=== PATIENT | male | born 1980 | race Hispanic/Latino ===

== ENCOUNTER 2016-09-27 07:47 | Emergency (ER) | payer MEDICAID, OTHER ==
[2016-09-27 07:48] VITALS: BMI 28.7
--- NOTE | 2016-09-27 08:18 | ED PDOC ---
Arrival/HPI - General Chief Complaint: Dental Pain Time Seen by Provider: 09/27/16 08:05 Historian: Patient - History of Present Illness Narrative History of Present Illness (Text): 09/27/16 08:10 A 36 year old male with no known past medical history presents to the emergency department complaining right lower tooth pain radiating to jaw and facial swelling. The patient notes that he has had facial swelling for the past 2 days. He states that he has had fever and sweats. Patient also complains of intermittent constipation and healing bug bites with no current itchiness on his arms. He denies headache, nausea, vomiting, diarrhea, chest pain, cough, abdominal pain, shortness of breath, dizziness, or any other complaint. Time/Duration: Other (past 2 days) Symptom Onset: Gradual Symptom Course: Unchanged Activities at Onset: Rest, Light Context: Home Past Medical History - Provider Review Nursing Documentation Reviewed: Yes - Infectious Disease Hx of Infectious Diseases: None - Past Medical History Past Medical History: No Previous - Cardiac Hx Cardiac Disorders: No Hx Hypertension: No - Pulmonary Hx Tuberculosis: No - Neurological HX Cerebrovascular Accident: No Hx Seizures: No - Hematological/Oncological Hx Cancer: No - Musculoskeletal/Rheumatological Hx Falls: No - Gastrointestinal Hx Gastroesophageal Reflux: Yes - Genitourinary/Gynecological Hx Sexually Transmitted Diseases: No - Psychiatric Hx Anxiety: Yes Hx Depression: Yes Hx Substance Use: No - Past Surgical History Past Surgical History: No Previous - Anesthesia Hx Anesthesia: No - Suicidal Assessment Feels Threatened In Home Enviroment: No Family/Social History - Physician Review Nursing Documentation Reviewed: Yes Family/Social History: No Known Family HX Smoking Status: Former Smoker Hx Alcohol Use: No Hx Substance Use: No Substance used: cocaine Hx Substance Use Treatment: No Allergies/Home Meds Allergies/Adverse Reactions: Allergies No Known Allergies Allergy (Verified 09/27/16 08:08) Home Medications: Home Meds Medication Instructions Recorded Confirmed DULoxetine [Cymbalta] 60 mg PO DAILY 04/14/15 09/27/16 Buprenorphine Hydrochloride 8 mg SL TID 09/27/16 09/27/16 [Subutex] Clonazepam [Klonopin] 2 mg PO TID 09/27/16 09/27/16 Sertraline [Zoloft] 50 mg PO DAILY 09/27/16 09/27/16 Review of Systems - Physician Review All systems were reviewed & negative as marked: Yes - Review of Systems Constitutional: Fevers, Night Sweats ENT: Other (right facial swelling and right lower tooth pain) Respiratory: absent: SOB, Cough Cardiovascular: absent: Chest Pain Gastrointestinal: absent: Abdominal Pain, Diarrhea, Nausea, Vomiting Neurological: absent: Headache, Dizziness Physical Exam Vital Signs Reviewed: Yes Vital Signs Temp Pulse Resp BP Pulse Ox 09/27/16 09:30 100.7 F H 96 H 16 128/67 95 09/27/16 08:03 100.8 F H 110 H 20 129/74 100 09/27/16 07:48 100.8 F H 110 H 20 129/74 100 Temperature: Febrile Blood Pressure: Normal Pulse: Tachycardic Respiratory Rate: Normal Appearance: Positive for: Well-Appearing, Non-Toxic, Comfortable Pain Distress: None Mental Status: Positive for: Alert and Oriented X 3 - Systems Exam Head: Present: Atraumatic, Normocephalic, Other (Right facial swelling with 4cm abscess) Pupils: Present: PERRL Extroacular Muscles: Present: EOMI Conjunctiva: Present: Normal Mouth: Present: Other (no puss or erythema in mouth). No: Normal Teeth ( tenderness to lower back right teeth) Neck: Present: Normal Range of Motion Respiratory/Chest: Present: Clear to Auscultation, Good Air Exchange. No: Respiratory Distress, Accessory Muscle Use Cardiovascular: Present: Regular Rate and Rhythm, Normal S1, S2. No: Murmurs Abdomen: No: Tenderness, Distention, Peritoneal Signs Back: Present: Normal Inspection Upper Extremity: Present: Normal Inspection. No: Cyanosis, Edema Lower Extremity: Present: Normal Inspection. No: Edema Neurological: Present: GCS=15, CN II-XII Intact, Speech Normal Skin: Present: Other (Healing bug bites on arm. Mild erythema, no warmth.) Psychiatric: Present: Alert, Oriented x 3, Normal Insight, Normal Concentration Medical Decision Making ED Course and Treatment: 09/27/16 08:18 Impression: A 36 year old male with right lower tooth pain and swelling with a 4cm abscess, constipation, and bug bites. Differential Diagnosis included but are not limited to: facial swelling with abscess, dental infection, constipation and bug bites. Plan: -- Maxillofacial CT -- Labs -- Blood Culture -- Toradol and IV Fluids -- Reassess and disposition Progress Notes: 09/27/16 09:14: Code sepsis called. Covered with Vancomycin IV and Zosyn IV. IVF continued. Pain controlled. CT MAXILLOFACIAL BONES WITH CONTRAST Report Date : 09/27/2016 09:53:52 Dictator : Maykel Britton MD IMPRESSION: Right pre maxillary abscess extending superiorly, lateral to the right maxillary sinus. Right facial cellulitis. Myositis involving the right medial pterygoid muscle. Large carry involving right 1st molar. No evidence of apical abscess. 09/27/16 10:30: Case disused with Dr. Allen, OMFS Resident who accepts patient for OMDS consult at [facility]. We do not have these services at [facility]. Case discussed with ED Attending, Dr. Handy who received the report as accepting physician. The patient was informed of the need for transfer. Patient signed transfer form and witness by EDGAR Harper. - Critical Care Critical Care Minutes: 30 minutes - Lab Interpretations Lab Results: 09/27/16 08:45 09/27/16 08:45 Lab Results 09/27/16 09:29: POC Glucose (mg/dL) 148 H 09/27/16 08:45: Sodium 135, Chloride 96, Potassium 4.1, Carbon Dioxide 27, Anion Gap 16, BUN 12, Creatinine 0.9, Est GFR ( Amer) > 60, Est GFR (Non- Af Amer) > 60, Random Glucose 156 H, Calcium 9.2, Total Bilirubin 2.3 H, AST 20 , ALT 33, Alkaline Phosphatase 63, Total Protein 7.6, Albumin 4.1, Globulin 3.5 , Albumin/Globulin Ratio 1.2, Lipase < 10 L 09/27/16 08:45: pO2 88 H, VBG pH 7.38, VBG pCO2 48.0, VBG HCO3 28.4 H, VBG Total CO2 29.9 H, VBG O2 Sat (Calc) 98.2 H, VBG Base Excess 2.5 H, VBG Potassium 4.6, Sodium 133.0, Chloride 96.0 L, Glucose 159 H, Lactate 2.5 H, FiO2 21.0, Venous Blood Potassium 4.6 09/27/16 08:45: WBC 23.3 H D, RBC 5.75, Hgb 17.7, Hct 49.3, MCV 85.7, MCH 30.8, MCHC 35.9, RDW 13.1, Plt Count 129, MPV 10.1, Gran % 86.2 H, Lymph % (Auto) 5.3 L, [place] % (Auto) 8.5 H, Eos % (Auto) 0.0 L, Baso % (Auto) 0.0, Gran # 20.03 H, Lymph # 1.2, [place] # 2.0 H, Eos # 0.0, Baso # 0.01, Neutrophils % (Manual) 82 H, Band Neutrophils % 2, Lymphocytes % (Manual) 9 L, Atypical Lymphs % 3 H, Monocytes % (Manual) 4, Platelet Evaluation Normal, Anisocytosis (manual) 1+ I have reviewed the lab results: Yes - RAD Interpretation Radiology Orders: 09/27/16 08:19 MAXILLOFACIAL W/CONTRAST [CT] Stat - Medication Orders Current Medication Orders: Sodium Chloride (Sodium Chloride 0.9%) 1,000 mls @ 100 mls/hr IV .Q10H JOANNA Last Admin: 09/27/16 08:50 Dose: 100 mls/hr Vancomycin HCl (Vancomycin 1gm) 1 gm in 250 mls @ 167 mls/hr IVPB STAT STA PRN Reason: Protocol Stop: 09/27/16 10:47 Last Admin: 09/27/16 09:34 Dose: 167 mls/hr Discontinued Medications Piperacillin Sod/Tazobactam Sod (Zosyn 4.5 Gm In Ns 100ml) 4.5 gm in 100 mls @ 200 mls/hr IVPB STAT STA PRN Reason: Protocol Stop: 09/27/16 10:32 Iohexol (Omnipaque 350 100 Ml) Confirm Administered Dose 350 mg .ROUTE .STK-MED ONE Stop: 09/27/16 09:14 Ketorolac Tromethamine (Toradol) 30 mg IVP STAT STA Stop: 09/27/16 08:19 Last Admin: 09/27/16 08:50 Dose: 30 mg - Scribe Statement The provider has reviewed the documentation as recorded by the Meng Alcantara Provider Scribe Attestation: All medical record entries made by the Scribe were at my direction and personally dictated by me. I have reviewed the chart and agree that the record accurately reflects my personal performance of the history, physical exam, medical decision making, and the department course for this patient. I have also personally directed, reviewed, and agree with the discharge instructions and disposition. Disposition/Present on Arrival - Present on Arrival Any Indicators Present on Arrival: No History of DVT/PE: No History of Uncontrolled Diabetes: No Urinary Catheter: No History of Decub. Ulcer: No History Surgical Site Infection Following: None - Disposition Have Diagnosis and Disposition been Completed?: Yes Diagnosis: Facial cellulitis, Facial abscess Disposition: Trans to Other Acute Care Hosp Disposition Time: 10:45 Patient Plan: Transfer To ([facility]) Condition: CRITICAL Discharge Instructions (ExitCare): Cellulitis (ED) Referrals: PCP,NO [Primary Care Provider] - Follow up with primary Forms: [employer] (Botswanan)
[2016-09-27] MEDS ORDERED: Sodium Chloride 0.9% 1,000 ML IV SCH (08:30)
[2016-09-27 09:08] LABS: BASO # 0.01 K/mm3 (0.0-2.0); GRAN # 20.03 (1.4-6.5); GRAN % 86.2 % (50.0-68.0); HEMATOCRIT 49.3 % (42.0-52.0); LYMPH # 1.2 (1.2-3.4); LYMPH % 5.3 % (22.0-35.0); MEAN CELL VOLUME 85.7 fl (80.0-105.0); MEAN CORPUSCULAR HEMOGLOBIN 30.8 pg (25.0-35.0); MEAN CORPUSCULAR HGB CONC 35.9 g/dl (31.0-37.0); MEAN PLATELET VOLUME 10.1 fl (7.0-11.0); MONO % 8.5 % (1.0-6.0); PLATELET COUNT 129 10^3/uL (120.0-450.0); RED CELL DISTRIBUTION WIDTH 13.1 % (11.5-14.5); WHITE BLOOD COUNT 23.3 10^3/ul (4.5-11.0)
[2016-09-27 09:11] LABS: VENOUS BLOOD GAS BASE EXCESS 2.5 mmol/L (0.0-2.0); VENOUS BLOOD PH 7.38 (7.32-7.43)
[2016-09-27 09:13] LABS: ALB/GLOB RATIO 1.2 (1.1-1.8); ALKALINE PHOSPHATASE 63 U/L (38-133); ALT/SGPT 33 U/L (7-56); AST/SGOT 20 U/L (15-59); BILIRUBIN,TOTAL 2.3 mg/dL (0.2-1.3); BLOOD UREA NITROGEN 12 mg/dL (7-21); CALCIUM 9.2 mg/dL (8.4-10.5); CARBON DIOXIDE 27 mmol/L (21-33); CHLORIDE 96 mmol/L (95-110); GFR AFRICAN-AMERICAN > 60; GLUCOSE,RANDOM 156 mg/dL (70-110); LIPASE < 10 U/L (23-300); POTASSIUM 4.1 mmol/L (3.6-5.0); SODIUM 135 mmol/L (132-148); TOTAL PROTEIN 7.6 g/dL (5.8-8.3)
[2016-09-27] MEDS ORDERED: Iohexol 350 MG/100 ML VIAL ONE (09:13)
[2016-09-27] MEDS ORDERED: Vancomycin 1gm in NS 250ml 1 GM/250 ML BAG IVPB STA (09:18)
[2016-09-27 09:44] LABS: ATYPICAL LYMPHOCYTE 3 % (0.0-0.0); BAND 2 % (0-2); NEUTROPHIL 82 % (50.0-70.0)
[2016-09-27 09:45] LABS: ANISOCYTOSIS 1+; PLATELET ESTIMATE NORMAL (NORMAL)
[2016-09-27 09:51] VITALS: RESP 16
--- NOTE | 2016-09-27 09:56 | CT ---
PROCEDURE: CT MAXILLOFACIAL BONES WITH CONTRAST HISTORY: right facial swelling w toothpain r/o abscess COMPARISON: None. TECHNIQUE: Contiguous axial CT images of the maxillofacial bones were obtained following administration of IV contrast. Coronal and sagittal reformats were generated. Intravenous contrast Dose: 100 mL Omnipaque 350 Radiation dose: Total exam DLP = 894.10 mGy-cm. This CT exam was performed using one or more of the following dose reduction techniques: Automated exposure control, adjustment of the mA and/or kV according to patient size, and/or use of iterative reconstruction technique. FINDINGS: NASAL BONES: Unremarkable. ORBITS: Unremarkable. PARANASAL SINUSES/ MASTOIDS: Clear. MAXILLA: No fracture. Extensive right maxillary soft tissue infiltration with a small abscess measuring roughly 1.7 x 2.2 cm. This is seen lateral to the right maxillary molars. There is a large caries involving the right mandibular 1st molar. This contains bubbles of gas. This gas is continuous with small quantities of gas about the right medial master muscle. There is enlargement of the right medial pterygoid muscle consistent with a myositis. There is stranding of the right maxillary subcutaneous soft tissues consistent with a cellulitis. There is thickening of the right platysmas muscle. MANDIBLE/ TEMPOROMANDIBULAR JOINTS: Unremarkable. SKULL BASE: Unremarkable. TEMPORAL BONES: Middle ears and mastoid grossly unremarkable. OTHER FINDINGS: None. IMPRESSION: Right pre maxillary abscess extending superiorly, lateral to the right maxillary sinus. Right facial cellulitis. Myositis involving the right medial pterygoid muscle. Large carry involving right 1st molar. No evidence of apical abscess.
[2016-09-27] MEDS ORDERED: Piperacill/Tazo 4.5gm in NS 4.5 GM/100 ML BAG IVPB STA (10:03)
[2016-09-27] MEDS ORDERED: Morphine 4 mg/ml ISec IVP STA (10:56)
[2016-09-27 11:55] VITALS: BP 114/68; PULSE 93; TEMP 101; O2SAT 99
[2016-09-27 12:20] LABS: VENOUS BLOOD GAS BASE EXCESS 2.9 mmol/L (0.0-2.0); VENOUS BLOOD PH 7.35 (7.32-7.43)
== END 2016-09-27 11:50 | disposition short-term general hospital (02) ==
LOC: ED 07:47
DX: L03.211 Cellulitis of face (principal); L02.01 Cutaneous abscess of face; Z87.891 Personal history of nicotine dependence
CPT/HCPCS: 70488; 80053; 82803; 82948; 83690; 85025; 87040; 96365; 96366; 96375; 99283; J1885; J2270; J2543; J7040; Q9967

== ENCOUNTER 2017-01-02 18:33 | Inpatient (IN) | payer MEDICAID ==
[2017-01-02] MEDS ORDERED: Naloxone 0.4 mg/ml Inj (Adult) ONE (18:51)
[2017-01-02 19:15] LABS: ALB/GLOB RATIO 1.4 (1.1-1.8); ALKALINE PHOSPHATASE 60 U/L (38-126); ALT/SGPT 37 U/L (7-56); AST/SGOT 29 U/L (17-59); BILIRUBIN,TOTAL 3.6 mg/dL (0.2-1.3); BLOOD UREA NITROGEN 20 mg/dL (7-21); CALCIUM 9.3 mg/dL (8.4-10.5); CARBON DIOXIDE 27 mmol/L (21-33); CHLORIDE 106 mmol/L (98-107); GFR AFRICAN-AMERICAN > 60; GLUCOSE,RANDOM 108 mg/dL (70-110); SODIUM 141 mmol/L (132-148); TOTAL PROTEIN 6.7 g/dL (5.8-8.3)
[2017-01-02 19:23] LABS: BASO # 0.01 K/mm3 (0.0-2.0); BASO % 0.1 % (0.0-3.0); EOS # 0.1 (0.0-0.7); EOS % 1.7 % (1.5-5.0); GRAN # 4.93 (1.4-6.5); HEMATOCRIT 42.9 % (42.0-52.0); LYMPH # 1.7 (1.2-3.4); LYMPH % 22.5 % (22.0-35.0); MEAN CELL VOLUME 89.6 fl (80.0-105.0); MEAN CORPUSCULAR HEMOGLOBIN 30.9 pg (25.0-35.0); MEAN CORPUSCULAR HGB CONC 34.5 g/dl (31.0-37.0); MEAN PLATELET VOLUME 9.5 fl (7.0-11.0); MONO # 0.8 (0.1-0.6); MONO % 10.7 % (1.0-6.0); RED CELL DISTRIBUTION WIDTH 14.5 % (11.5-14.5); WHITE BLOOD COUNT 7.6 10^3/ul (4.5-11.0)
[2017-01-02] MEDS ORDERED: ACETYLCYSTEINE IV ONE ×3 (19:40→19:44)
[2017-01-02] MEDS ORDERED: DEXTROSE 5% IV ONE ×3 (19:40→19:44)
[2017-01-02] MEDS ORDERED: WATER IV ONE ×3 (19:40→19:44)
--- NOTE | 2017-01-02 20:16 | ED PDOC ---
Arrival/HPI - General Chief Complaint: Substance Abuse Time Seen by Provider: 01/02/17 18:41 Historian: EMS - History of Present Illness Narrative History of Present Illness (Text): 01/02/17 20:26 A 36 year old male, who has no previous significant past medical history, presents to the emergency department via ALS and PD post status overdose at home. In the field the patient was given intranasal narcan and IV narcan with some response. As per PD the patient's significant other overdosed at the house resulting in . HPI & ROS limited due to patient's condition. Time/Duration: Prior to Arrival Symptom Onset: Sudden Symptom Course: Unchanged Activities at Onset: Other (drug use) Context: Home Past Medical History - Provider Review Nursing Documentation Reviewed: Yes - Infectious Disease Hx of Infectious Diseases: None - Past Medical History Past Medical History: No Previous - Cardiac Hx Cardiac Disorders: No Hx Hypertension: No - Pulmonary Hx Tuberculosis: No - Neurological HX Cerebrovascular Accident: No Hx Seizures: No - Hematological/Oncological Hx Cancer: No - Musculoskeletal/Rheumatological Hx Falls: No - Gastrointestinal Hx Gastroesophageal Reflux: Yes - Genitourinary/Gynecological Hx Sexually Transmitted Diseases: No - Psychiatric Hx Depression: No Hx Substance Use: No - Past Surgical History Past Surgical History: No Previous - Anesthesia Hx Anesthesia: No - Suicidal Assessment Feels Threatened In Home Enviroment: No Family/Social History - Physician Review Nursing Documentation Reviewed: Yes Family/Social History: No Known Family HX Smoking Status: Former Smoker Hx Alcohol Use: No Hx Substance Use: No Substance used: cocaine Hx Substance Use Treatment: No Allergies/Home Meds Allergies/Adverse Reactions: Allergies No Known Allergies Allergy (Unverified 01/02/17 18:54) Home Medications: Home Meds Medication Instructions Recorded Confirmed Unobtainable 01/02/17 01/02/17 Review of Systems - Physician Review All systems were reviewed & negative as marked: Yes - Review of Systems Systems not reviewed;Unavailable: Acuity of Condition Physical Exam Vital Signs Reviewed: Yes Vital Signs Temp Pulse Resp BP Pulse Ox 01/02/17 20:48 95.3 F L 75 18 109/55 L 93 L 01/02/17 19:10 72 24 91/53 L 96 01/02/17 18:33 96.5 F L 82 21 92/51 L 93 L Temperature: Hypothermic Blood Pressure: Hypotensive Pulse: Regular Respiratory Rate: Apneic Appearance: Positive for: Well-Appearing, Non-Toxic, Comfortable Pain Distress: None Mental Status: Positive for: Alert and Oriented X 3 Finger Stick Blood Glucose: 105 - Systems Exam Head: Present: Atraumatic, Normocephalic. No: Tenderness, Contusion, Swelling, Ecchymosis, Abrasion, Laceration Pupils: Present: Pinpoint Extroacular Muscles: Present: EOMI Conjunctiva: Present: Normal Ears: Present: Normal Mouth: Present: Moist Mucous Membranes Pharnyx: Present: Normal. No: ERYTHEMA, EXUDATE Nose (External): Present: Atraumatic Nose (Internal): Present: Normal Inspection Neck: Present: Normal Range of Motion Respiratory/Chest: Present: Clear to Auscultation, Good Air Exchange. No: Respiratory Distress, Accessory Muscle Use Cardiovascular: Present: Regular Rate and Rhythm, Normal S1, S2. No: Murmurs Abdomen: Present: Normal Bowel Sounds. No: Tenderness, Distention, Peritoneal Signs Back: Present: Normal Inspection Upper Extremity: Present: Normal Inspection. No: Cyanosis, Edema Lower Extremity: Present: Normal Inspection. No: Edema Neurological: Present: Other (non responsive to tactile stimuli ) Skin: Present: Warm, Dry, Normal Color. No: Rashes Psychiatric: Present: Intoxicated Medical Decision Making ED Course and Treatment: 01/02/17 20:15 Impression: A 36 year old male overdosed. Differential Diagnosis included but are not limited to: Overdose Plan: -- Head CT -- EKG -- Chest X-ray -- Dextrose 5% 200ml, Dextrose 5% 500ml, Dextrose 5% 1,000ml -- Fingerstick -- Ontiveros -- Emergency department admission -- Reassess and disposition Prior Visits: Notes and results from previous visits were reviewed. The patient was last seen in the emergency department on 09/27/16 for toothache, the patient was discharged home. Progress Notes: 01/02/17 20:20 EKG: Ordered, reviewed, and independently interpreted the EKG. Rate : 79 BPM Rhythm : NSR Interpretation : No ST-segment elevations or depressions, no T-wave inversions, normal intervals. QT wave is not prolonged. The patient's tylenol came back elevated, time of ingestion is unknown; will start NAC. The patient will admitted to the ICU. Poison control will be called E.D. stat. - Lab Interpretations Lab Results: 01/02/17 18:50 01/02/17 18:50 Lab Results 01/02/17 19:02: POC Glucose (mg/dL) 105 01/02/17 18:50: Alcohol, Quantitative < 10 01/02/17 18:50: Salicylates < 1 L, Acetaminophen 214.7 H* 01/02/17 18:50: Urine Opiates Screen Positive H, Urine Methadone Screen Negative , Ur Barbiturates Screen Positive H, Ur Phencyclidine Scrn Negative, Ur Amphetamines Screen Negative, U Benzodiazepines Scrn Positive, U Oth Cocaine Metabols Positive H, U Cannabinoids Screen Positive H 01/02/17 18:50: Sodium 141, Potassium 4.0, Chloride 106, Carbon Dioxide 27, Anion Gap 12, BUN 20, Creatinine 1.1, Est GFR ( Amer) > 60, Est GFR (Non- Af Amer) > 60, Random Glucose 108, Calcium 9.3, Total Bilirubin 3.6 H, AST 29, ALT 37, Alkaline Phosphatase 60, Total Protein 6.7, Albumin 3.8, Globulin 2.8, Albumin/Globulin Ratio 1.4 01/02/17 18:50: WBC 7.6 D, RBC 4.79, Hgb 14.8 D, Hct 42.9, MCV 89.6 D, MCH 30.9, MCHC 34.5, RDW 14.5, Plt Count 166, MPV 9.5, Gran % 65.0, Lymph % (Auto) 22.5, [place] % (Auto) 10.7 H, Eos % (Auto) 1.7, Baso % (Auto) 0.1, Gran # 4.93, Lymph # 1.7, [place] # 0.8 H, Eos # 0.1, Baso # 0.01 - RAD Interpretation Radiology Orders: 01/02/17 18:42 HEAD W/O CONTRAST [CT] Stat 01/02/17 18:48 CHEST PORTABLE [RAD] Stat - Medication Orders Current Medication Orders: Acetylcysteine 17,009.7 mg/ (Dextrose) 285.0485 mls @ 200 mls/hr IV .Q1H26M ONE Stop: 01/02/17 21:05 Last Admin: 01/02/17 20:20 Dose: 200 mls/hr eMAR Start Stop Document 01/02/17 20:20 CNR (Rec: 01/02/17 20:20 CNR [id number]) Intravenous Solution Start Date 01/02/17 Start Time 20:20 Acetylcysteine 5,669.9 mg/ (Dextrose) 528.3495 mls @ 125 mls/hr IV .Q4H14M ONE Stop: 01/02/17 23:56 Acetylcysteine 11,339.8 mg/ (Dextrose) 1,056.699 mls @ 62.5 mls/hr IV .[id number] ONE Stop: 01/03/17 12:38 Sodium Chloride (Sodium Chloride 0.9%) 1,000 mls @ 999 mls/hr IV .Q1H1M STA Stop: 01/02/17 21:30 Last Admin: 01/02/17 20:46 Dose: 999 mls/hr eMAR Start Stop Document 01/02/17 20:46 CNR (Rec: 01/02/17 20:46 CNR [id number]) Intravenous Solution Start Date 01/02/17 Start Time 20:00 End Date 01/02/17 End time 20:46 Total Infusion Time 46 Sodium Chloride (Sodium Chloride 0.9%) 1,000 mls @ 999 mls/hr IV .Q1H1M STA Stop: 01/02/17 21:31 Last Admin: 01/02/17 20:45 Dose: 999 mls/hr eMAR Start Stop Document 01/02/17 20:45 CNR (Rec: 01/02/17 20:45 CNR [id number]) Intravenous Solution Start Date 01/02/17 Start Time 19:00 End Date 01/02/17 End time 20:00 Total Infusion Time 60 Sodium Chloride (Sodium Chloride 0.9%) 1,000 mls @ 150 mls/hr IV .Q6H40M JOANNA Pantoprazole Sodium (Protonix Inj) 40 mg IVP DAILY JOANNA - Scribe Statement The provider has reviewed the documentation as recorded by the Fionaibevelia Devine Provider Scribe Attestation: All medical record entries made by the Scribe were at my direction and personally dictated by me. I have reviewed the chart and agree that the record accurately reflects my personal performance of the history, physical exam, medical decision making, and the department course for this patient. I have also personally directed, reviewed, and agree with the discharge instructions and disposition. Disposition/Present on Arrival - Present on Arrival Any Indicators Present on Arrival: No History of DVT/PE: No History of Uncontrolled Diabetes: No Urinary Catheter: No History of Decub. Ulcer: No History Surgical Site Infection Following: None - Disposition Have Diagnosis and Disposition been Completed?: Yes Diagnosis: Substance abuse, Acetaminophen overdose, Polysubstance abuse Disposition: HOSPITALIZED Disposition Time: 20:00 Patient Plan: Admission, ICU Condition: SERIOUS
--- NOTE | 2017-01-02 20:18 | CT ---
EXAM: CT Head Without Intravenous Contrast CLINICAL HISTORY: 36 years old, male; Signs and symptoms; Other: Overdose; Additional info: Overdose- R/O ich TECHNIQUE: Axial computed tomography images of the head/brain without intravenous contrast. All CT scans at this facility use one or more dose reduction techniques, viz.: automated exposure control; ma/kV adjustment per patient size (including targeted exams where dose is matched to indication; i.e. head); or iterative reconstruction technique. COMPARISON: No relevant prior studies available. FINDINGS: Brain: No intracranial hemorrhage. No mass. No definite edema. Ventricles: No hydrocephalus. Bones/joints: No acute fracture. Soft tissues: Unremarkable. Sinuses: Scattered minimal mucosal thickening. Mastoid air cells: No mastoid effusion. Orbits: Unremarkable as visualized. IMPRESSION: 1. No intracranial hemorrhage. 2. Incidental/non-acute findings are described above.
[2017-01-02] MEDS ORDERED: Sodium Chloride 0.9% 1,000 ML IV STA ×2 (20:30→20:31)
--- NOTE | 2017-01-02 20:57 | CP.PCM.HP ---
<Chayo Nelson - Last Filed: 01/02/17 20:48> History of Present Illness - History of Present Illness History of Present Illness: H&P for HospitalistGisela PGY2 This is a 36Y M with past medical history of IV drug abuse who was brought in by ambulance for altered mental status and possible drug overdose. Patient is awake, but lethargic. History was obtained through ED note and previous records. Patient's brother went to his house and found the patient to be confused and altered. EMS was called and he was brought into ED. He was found to be positive for multiple substances on UDS, including Tylenol. Patient was given Narcan and maintained his airway on nasal cannula. Head CT and CXR were negative.Poison control was notified and Acetadote was started. Past medical history: IV drug abuse (Heroin, cocaine), anxiety/depression, ADHD Past surgical history: None Home meds: unobtainable Allergies: NKDA Social history: + for cocaine, benzo, barbiturate, opiate, marijuana on UDS, + for tobacco use. Family history: non-contributory Present on Admission - Present on Admission Any Indicators Present on Admission: No Review of Systems - Review of Systems Systems not reviewed;Unavailable: Altered Mental Status, Intoxicated Past Patient History - Infectious Disease Hx of Infectious Diseases: None - Past Social History Smoking Status: Light Smoker < 10 Cigarettes Daily Alcohol: None Drugs: Cannabis, Cocaine, Opiates, Prescription medications Home Situation {Lives}: Alone - CARDIAC Hx Cardiac Disorders: No Hx Hypertension: No - PULMONARY Hx Tuberculosis: No - NEUROLOGICAL HX Cerebrovascular Accident: No Hx Seizures: No - HEMATOLOGICAL/ONCOLOGICAL Hx Cancer: No - MUSCULOSKELETAL/RHEUMATOLOGICAL Hx Falls: No - GASTROINTESTINAL Hx Gastroesophageal Reflux: Yes - GENITOURINARY/GYNECOLOGICAL Hx Sexually Transmitted Disorders: No - PSYCHIATRIC Hx Depression: No Hx Substance Use: No - ANESTHESIA Hx Anesthesia: No Meds Allergies/Adverse Reactions: Allergies Allergy/AdvReac Type Severity Reaction Status Date / Time No Known Allergies Allergy Unverified 01/02/17 18:54 Physical Exam - Constitutional Appears: Confused - Head Exam Head Exam: ATRAUMATIC, NORMAL INSPECTION, NORMOCEPHALIC - Eye Exam Eye Exam: Normal appearance. absent: Scleral icterus Pupil Exam: Miosis - ENT Exam ENT Exam: Mucous Membranes Dry - Respiratory Exam Respiratory Exam: Rhonchi, NORMAL BREATHING PATTERN. absent: Rales, Wheezes - Cardiovascular Exam Cardiovascular Exam: REGULAR RHYTHM, +S1, +S2. absent: Gallop, Rubs, Systolic Murmur - GI/Abdominal Exam GI & Abdominal Exam: Normal Bowel Sounds, Soft. absent: Mass, Rebound, Rigid, Tenderness - Extremities Exam Extremities exam: Positive for: normal inspection. Negative for: pedal edema - Neurological Exam Neurological exam: Altered Additional comments: Pinpoint pupils, no dolls eye reflex, not withdrawing to pain in all 4 extremities. No babinski noted - Skin Skin Exam: Dry, Warm Additional comments: Vertical Cut suarez on wrist/forearm bilaterally Results - Vital Signs Recent Vital Signs: Last Vital Signs Temp 95.3 F L 01/02/17 20:48 Pulse 75 01/02/17 20:48 Resp 18 01/02/17 20:48 BP 109/55 L 01/02/17 20:48 Pulse Ox 93 L 01/02/17 20:48 - Labs Result Diagrams: 01/02/17 18:50 01/02/17 18:50 Assessment & Plan - Assessment and Plan (Free Text) Assessment: This is a 36Y M with past medical history of IV drug abuse who was brought in by ambulance for altered mental status secondary to multi-substance abuse ( Cocaine, benzo, marijuana, opiate, barbiturate, tylenol). Plan: 1. AMS - Secondary to substance abuse - Head CT negative, CXR: no active disease - Poison control notified (Recommended to recheck LFT and Tylenol level once 16hr Acetadote completed) - EKG q8h - Neuro check - Aspiration precaution, Head of bed elevated 30 degrees - Seizure precaution - NS@150 - NPO 2. Elevated Bilirubin - T. Bili: 3.6 - Bilirubin elevated at previous admissions (T.bili:~2) - Will check Hep panel (was negative in 04/2015) 3. Substance abuse (IVDA) - Will check HIV - Consider psych consult for possible suicide attempt (cut suarez on wrists) once pt awake. GI ppx: Protonix DVT ppx: SCDs Case seen, discussed and reviewed with Dr. Edwards. Gisela Nelson PGY2 - Date & Time Date: 01/02/17 Time: 21:09 <Grace RIVAS,Mart - Last Filed: 01/03/17 07:45> Results - Vital Signs Recent Vital Signs: Last Vital Signs Temp 98.4 F 01/03/17 06:50 Pulse 87 01/03/17 06:50 Resp 27 H 01/03/17 06:50 BP 136/86 01/03/17 06:00 Pulse Ox 95 01/03/17 06:50 - Labs Result Diagrams: 01/03/17 05:30 01/03/17 05:30 Labs: Laboratory Results - last 24 hr 01/02/17 01/03/17 01/03/17 21:45 00:30 00:30 WBC RBC Hgb Hct MCV MCH MCHC RDW Plt Count MPV Gran % Lymph % (Auto) Weak[place] % (Auto) Eos % (Auto) Baso % (Auto) Gran # Lymph # Weakley # Eos # Baso # PT 11.6 INR 1.06 APTT 29.4 pO2 VBG pH VBG pCO2 VBG HCO3 VBG Total CO2 VBG O2 Sat (Calc) VBG Base Excess VBG Potassium Glucose Lactate FiO2 Sodium Potassium Chloride Carbon Dioxide Anion Gap BUN Creatinine Est GFR ( Amer) Est GFR (Non-Af Amer) POC Glucose (mg/dL) Random Glucose Calcium Total Bilirubin 1.3 Direct Bilirubin 1.3 H AST 32 ALT 45 Alkaline Phosphatase < 20 L D Total Protein 6.1 Albumin 3.3 Globulin 2.8 Albumin/Globulin Ratio 1.2 Venous Blood Potassium Acetaminophen 94.7 H* 01/03/17 01/03/17 01/03/17 05:30 05:30 05:30 WBC 7.3 RBC 4.89 Hgb 14.8 Hct 44.7 MCV 91.4 MCH 30.3 MCHC 33.1 RDW 14.7 H Plt Count 169 MPV 9.7 Gran % 79.4 H Lymph % (Auto) 12.9 L Weakley % (Auto) 7.4 H Eos % (Auto) 0.0 L Baso % (Auto) 0.3 Gran # 5.78 Lymph # 0.9 L Weakley # 0.5 Eos # 0.0 Baso # 0.02 PT 13.3 H INR 1.22 H APTT 30.7 pO2 VBG pH VBG pCO2 VBG HCO3 VBG Total CO2 VBG O2 Sat (Calc) VBG Base Excess VBG Potassium Glucose Lactate FiO2 Sodium 143 Potassium 3.7 Chloride 109 H Carbon Dioxide 26 Anion Gap 12 BUN 13 Creatinine 0.9 Est GFR ( Amer) > 60 Est GFR (Non-Af Amer) > 60 POC Glucose (mg/dL) Random Glucose 113 H Calcium 8.2 L Total Bilirubin 1.1 Direct Bilirubin AST 43 ALT 45 Alkaline Phosphatase 37 L D Total Protein 6.2 Albumin 3.4 Globulin 2.8 Albumin/Globulin Ratio 1.2 Venous Blood Potassium Acetaminophen 01/03/17 01/03/17 01/03/17 05:30 06:30 07:28 WBC RBC Hgb Hct MCV MCH MCHC RDW Plt Count MPV Gran % Lymph % (Auto) Weakley % (Auto) Eos % (Auto) Baso % (Auto) Gran # Lymph # Weakley # Eos # Baso # PT INR APTT pO2 98 H VBG pH 7.30 L VBG pCO2 50.0 VBG HCO3 24.6 VBG Total CO2 26.1 VBG O2 Sat (Calc) 98.7 H VBG Base Excess -2.4 L VBG Potassium 3.9 Glucose 116 H Lactate 0.6 L FiO2 21.0 Sodium 141.0 Potassium Chloride 107.0 Carbon Dioxide Anion Gap BUN Creatinine Est GFR ( Amer) Est GFR (Non-Af Amer) POC Glucose (mg/dL) 99 Random Glucose Calcium Total Bilirubin Direct Bilirubin AST ALT Alkaline Phosphatase Total Protein Albumin Globulin Albumin/Globulin Ratio Venous Blood Potassium 3.9 Acetaminophen 41.7 H Attending/Attestation - Attestation I have personally seen and examined this patient.: Yes I have fully participated in the care of the patient.: Yes I have reviewed all pertinent clinical information: Yes Notes (Text): -I agree with the above H&P completed by the resident physician with the following additions and/or changes: -The patient is a 36 year old man with a history of polysubstance abuse, depression and ADHD, who was BIBA with AMS. In the ED, he was withdrawing extremities to pain and able to protect his airway but otherwise unresponsive. Urine toxicology was positive for opiates, cocaine, barbiturates and THC. Also, initial serum Acetaminophen levels were elevated (214). History is very limited due to patient's AMS. Poison control was notified by the ED and per their rec's the patient was started on NAC protocol. Initial CT-head, CXR and EKG were all unremarkable. The patient was noted initially to be hypothermic at 96.5. However , his WBC, serum bicarb and LFT's were initially normal. Overnight, in the ICU, his lethargy and AMS appears to have worsened, in that, he no longer is withdrawals to pain sensation. As a result, Narcan drip was initiated overnight (with no improvement in neurological status thus far). Repeat LFT's, acetaminophen level and INR have been ordered for this AM (currently pending). Also, chirinos-cultures have been ordered. Of note, if patient's neurological status continues to worsen, then he may ultimately require intubation for airway protection. Neurology consult has been placed. Upon resolution of altered mentation, the patient will likely also need a psychiatry consult as it is unclear if the Acetaminophen overdose was intentional or not.
[2017-01-02] MEDS: Sodium Chloride 0.9% 1,000 ML IV SCH (21:30)
[2017-01-02 22:19] LABS: INR 1.06 (0.93-1.08); PARTIAL THROMBOPLASTIN TIME 29.4 Seconds (25.1-36.5)
[2017-01-02] MEDS ORDERED: Naloxone 0.4 mg/ml Inj (Adult) IVP ONE (22:23)
[2017-01-02 23:30] VITALS: BMI 29.5
[2017-01-03 01:00] LABS: ALB/GLOB RATIO 1.2 (1.1-1.8); ALKALINE PHOSPHATASE < 20 U/L (38-126); ALT/SGPT 45 U/L (7-56); AST/SGOT 32 U/L (17-59); BILIRUBIN,DIRECT 1.3 mg/dL (0.0-0.4); BILIRUBIN,TOTAL 1.3 mg/dL (0.2-1.3); TOTAL PROTEIN 6.1 g/dL (5.8-8.3)
[2017-01-03] MEDS ORDERED: Naloxone 2.4 MG in Sodium Chloride 0.9% 240 ML IV ONE (02:50)
[2017-01-03] MEDS: Sodium Chloride 0.9% 1,000 ML IV SCH ×2 (04:28→09:30)
[2017-01-03 06:15] LABS: BASO # 0.02 K/mm3 (0.0-2.0); BASO % 0.3 % (0.0-3.0); GRAN # 5.78 (1.4-6.5); GRAN % 79.4 % (50.0-68.0); HEMATOCRIT 44.7 % (42.0-52.0); LYMPH # 0.9 (1.2-3.4); LYMPH % 12.9 % (22.0-35.0); MEAN CELL VOLUME 91.4 fl (80.0-105.0); MEAN CORPUSCULAR HEMOGLOBIN 30.3 pg (25.0-35.0); MEAN CORPUSCULAR HGB CONC 33.1 g/dl (31.0-37.0); MEAN PLATELET VOLUME 9.7 fl (7.0-11.0); MONO # 0.5 (0.1-0.6); MONO % 7.4 % (1.0-6.0); RED CELL DISTRIBUTION WIDTH 14.7 % (11.5-14.5); WHITE BLOOD COUNT 7.3 10^3/ul (4.5-11.0)
[2017-01-03 06:47] LABS: VENOUS BLOOD GAS BASE EXCESS -2.4 mmol/L (0.0-2.0)
[2017-01-03 06:54] LABS: ALB/GLOB RATIO 1.2 (1.1-1.8); ALKALINE PHOSPHATASE 37 U/L (38-126); ALT/SGPT 45 U/L (7-56); AST/SGOT 43 U/L (17-59); BILIRUBIN,TOTAL 1.1 mg/dL (0.2-1.3); BLOOD UREA NITROGEN 13 mg/dL (7-21); CALCIUM 8.2 mg/dL (8.4-10.5); CARBON DIOXIDE 26 mmol/L (21-33); CHLORIDE 109 mmol/L (98-107); GFR AFRICAN-AMERICAN > 60; GLUCOSE,RANDOM 113 mg/dL (70-110); POTASSIUM 3.7 mmol/L (3.6-5.0); SODIUM 143 mmol/L (132-148); TOTAL PROTEIN 6.2 g/dL (5.8-8.3)
[2017-01-03 07:08] LABS: INR 1.22 (0.93-1.08); PARTIAL THROMBOPLASTIN TIME 30.7 Seconds (25.1-36.5)
[2017-01-03 07:39] LABS: ARTERIAL BLOOD GAS HCO3 20.6 mmol/L (21-28); ARTERIAL BLOOD GAS O2 CAPACITY 20.8 mL/dl (16-24); ARTERIAL BLOOD GAS O2 CONTENT 20.2 ML/dl (15-23); ARTERIAL BLOOD GAS PH 7.43 (7.35-7.45); ARTERIAL BLOOD HGB O2 SAT 92.6 % (95.0-98.0); CARBOXYHEMOGLOBIN 2.9 % (0.5-1.5); METHEMOGLOBIN 1.5 % (0.0-3.0)
[2017-01-03 08:10] LABS: MAGNESIUM 1.9 mg/dL (1.7-2.2); PHOSPHOROUS 3.6 mg/dL (2.5-4.5)
[2017-01-03 08:21] LABS: TROPONIN I < 0.01 ng/mL
--- NOTE | 2017-01-03 09:16 | CARD ---
APPROVED REPORT EKG Measurement Heart [id number] <Conclusion> Normal sinus rhythm Normal ECG No change
--- NOTE | 2017-01-03 09:26 | CARD ---
APPROVED REPORT EKG Measurement Heart [id number] [place] [id number] <Conclusion> Normal sinus rhythm Normal ECG No change
--- NOTE | 2017-01-03 09:36 | CARD ---
APPROVED REPORT EKG Measurement Heart [id number] [place] [id number] <Conclusion> Normal sinus rhythm Normal ECG No change
[2017-01-03 09:49] LABS: ARTERIAL BLOOD GAS O2 CAPACITY 19.2 mL/dl (16-24); ARTERIAL BLOOD GAS PH 7.39 (7.35-7.45); ARTERIAL BLOOD HGB O2 SAT 96.1 % (95.0-98.0); CARBOXYHEMOGLOBIN 2.1 % (0.5-1.5); HHB 0.8 % (0-5)
--- NOTE | 2017-01-03 10:10 | RAD ---
HISTORY: r/o infiltrate COMPARISON: 04/14/2015 FINDINGS: LUNGS: No active pulmonary disease. PLEURA: No significant pleural effusion identified, no pneumothorax apparent. CARDIOVASCULAR: Normal. OSSEOUS STRUCTURES: No significant abnormalities. VISUALIZED UPPER ABDOMEN: Normal. OTHER FINDINGS: None. IMPRESSION: No active disease.
--- NOTE | 2017-01-03 10:37 | RAD ---
HISTORY: Evaluate for PNA COMPARISON: 01/02/2017 FINDINGS: LUNGS: There is linear atelectasis at the right lung base. The lungs are otherwise clear PLEURA: No significant pleural effusion identified, no pneumothorax apparent. CARDIOVASCULAR: Normal. OSSEOUS STRUCTURES: No significant abnormalities. VISUALIZED UPPER ABDOMEN: Normal. OTHER FINDINGS: None. IMPRESSION: Linear atelectasis at the right lung base.
--- NOTE | 2017-01-03 10:38 | RAD ---
HISTORY: intubation COMPARISON: Earlier same day FINDINGS: LUNGS: The endotracheal tube is at the level of the upper border of the clavicles. The nasogastric tube is in satisfactory position in the gastric fundus. There is improvement in the linear atelectasis at the right lung base PLEURA: No significant pleural effusion identified, no pneumothorax apparent. CARDIOVASCULAR: Normal. OSSEOUS STRUCTURES: No significant abnormalities. VISUALIZED UPPER ABDOMEN: Normal. OTHER FINDINGS: None. IMPRESSION: The endotracheal tube is at the level of the upper border of the clavicles. The nasogastric tube is in satisfactory position in the gastric fundus. There is improvement in the linear atelectasis at the right lung base
--- NOTE | 2017-01-03 11:36 | CP.PCM.PN ---
<Jefe Andersen - Last Filed: 01/03/17 11:31> Subjective - Date & Time of Evaluation Date of Evaluation: 01/03/17 Time of Evaluation: 11:32 - Subjective Subjective: Pt seen and examined at bedside. Pt intubated this AM due to respiratory distress. No family at bedside. Objective - Vital Signs/Intake and Output Vital Signs (last 24 hours): Temp Pulse Resp BP Pulse Ox 98.4 F 83 19 135/80 99 01/03/17 09:50 01/03/17 10:00 01/03/17 08:49 01/03/17 09:00 01/03/17 09:50 Intake and Output: 01/03/17 01/03/17 06:59 18:59 Intake Total 2425 Output Total 1800 Balance 625 - Medications Medications: Current Medications Acetylcysteine 11,339.8 mg/ (Dextrose) 1,056.699 mls @ 62.5 mls/hr IV .[id number] ONE Stop: 01/03/17 12:38 Last Admin: 01/03/17 02:13 Dose: 62.5 mls/hr Sodium Chloride (Sodium Chloride 0.9%) 1,000 mls @ 75 mls/hr IV .[id number] JOANNA Last Admin: 01/03/17 09:30 Dose: 75 mls/hr Pantoprazole Sodium (Protonix Inj) 40 mg IVP DAILY [facility] Last Admin: 01/03/17 09:31 Dose: 40 mg - Labs Labs: 01/03/17 05:30 01/03/17 05:30 PT 13.3 SECONDS (9.4-12.5) H 01/03/17 05:30 INR 1.22 (0.93-1.08) H 01/03/17 05:30 APTT 30.7 Seconds (25.1-36.5) 01/03/17 05:30 - Constitutional Appears: Toxic, In Acute Distress - Head Exam Head Exam: ATRAUMATIC, NORMAL INSPECTION, NORMOCEPHALIC - Eye Exam Pupil Exam: Miosis - Respiratory Exam Respiratory Exam: Decreased Breath Sounds, NORMAL BREATHING PATTERN. absent: Rales, Rhonchi, Wheezes - Cardiovascular Exam Cardiovascular Exam: RRR, +S1, +S2 - GI/Abdominal Exam GI & Abdominal Exam: Soft, Normal Bowel Sounds. absent: Tenderness - Extremities Exam Extremities Exam: absent: Calf Tenderness, Pedal Edema - Neurological Exam Neurological Exam: Alert, Awake, Oriented x3 - Skin Skin Exam: Intact, Normal Color, Warm Assessment and Plan - Assessment and Plan (Free Text) Plan: 36 y/o M with past medical history of IV drug abuse who presents with AMS secondary to multisubstance overdose in the setting of respiratory failure. UDS positive for cocaine, benzo, marijuana, opiate, barbiturate, tylenol. No EKG changes at this time with tylenol level decreasing. Pt intubated to protect airway. Will monitor for possible aspiration pneumonia. Procal ordered. 1. AMS - Likely secondary to substance abuse - Head CT negative - Continue NAC for tylenol overdose as per poison control - WIll continue to trend LFTs - EKG q8h, no EKG changes at this time - Neuro check q4h - Aspiration precaution, Head of bed elevated 30 degrees - Seizure precaution - NS@150 - NPO 2. Elevated Bilirubin - Resolved - T. Bili: 3.6 initially, decreased to 1.1 - Hep panel pending 3. Substance abuse (IVDA) - HIV pending - Will consult psych once patient is alert and order 1:1 4. PPX - Protonix/SCDs Ganesh, PGY-2 <Rolanda Marsh B - Last Filed: 01/03/17 15:38> Objective - Vital Signs/Intake and Output Vital Signs (last 24 hours): Temp Pulse Resp BP Pulse Ox 97.2 F L 62 19 123/68 100 01/03/17 15:01 01/03/17 14:50 01/03/17 08:49 01/03/17 14:00 01/03/17 14:50 Intake and Output: 01/03/17 01/03/17 06:59 18:59 Intake Total 2425 Output Total 1800 Balance 625 - Medications Medications: Current Medications Sodium Chloride (Sodium Chloride 0.9%) 1,000 mls @ 75 mls/hr IV .[id number] [facility] Last Admin: 01/03/17 09:30 Dose: 75 mls/hr Lorazepam (Ativan) 2 mg IVP Q4H PRN; Protocol PRN Reason: Anxiety Pantoprazole Sodium (Protonix Inj) 40 mg IVP DAILY [facility] Last Admin: 01/03/17 09:31 Dose: 40 mg - Labs Labs: 01/03/17 05:30 01/03/17 05:30 PT 13.3 SECONDS (9.4-12.5) H 01/03/17 05:30 INR 1.22 (0.93-1.08) H 01/03/17 05:30 APTT 30.7 Seconds (25.1-36.5) 01/03/17 05:30 Attending/Attestation - Attestation I have personally seen and examined this patient.: Yes I have fully participated in the care of the patient.: Yes I have reviewed all pertinent clinical information, including history, physical exam and plan: Yes Notes (Text): I have seen and examined the patient at bedside. Agree with the above note with the following additions/ exceptions: Briefly this is 36 year old male with history of IVDA, Polysubstance abuse (opioids, cocaine, barbiturates, marijuana ) who was brought for evaluation of AMS. He got intubated this morning due to respiratory distress. Tylenol level was really high and is trending down now. He was given narcan and acetylcysteine. Poison control on the case. No family member is at the bedside. Continue ICU management. Will closely monitor his LFTs. HIV pending. As per team, suicide note was found on the scene. There are superficial cut suarez on both wrists. Will consult psych once patient is more awake. Upon discharge patient will follow up with PMD of choice. Dr Rolanda Marsh
[2017-01-03 13:40] LABS: TROPONIN I < 0.01 ng/mL
--- NOTE | 2017-01-03 13:44 | PN ---
DATE: 01/03/2017 TICKETING AGENT NOTE SUBJECTIVE: The patient is unresponsive at this time with no obvious distress. Vital signs are stable. The patient, when first came up, had pinpoint pupils, slow to respond as well as no gag reflex. Recently, the patient has started responding by coughing. The patient is on facemask O2 with good O2 saturation. He continues to be on the Narcan drip and he has been getting the N-acetylcysteine for possible Tylenol overdose. PHYSICAL EXAMINATION: VITAL SIGNS: Note that his temperature is 98.4, his pulse is 87, respirations are 24, BP is 136/86, and O2 saturation is 97% on facemask O2. HEENT: Head is atraumatic and normocephalic. Eyes, sluggishly reactive to light. Ears, nose, and throat seemed to be within normal limits. NECK: Supple. No JVD. No thyroid enlargement. No lymph nodes. HEART: Has regular rate and rhythm. Normal S1 and S2. LUNGS: Reveal good breath sounds bilaterally. ABDOMEN: Soft. Decreased bowel sounds. GENITALIA AND RECTAL: Deferred. MUSCULOSKELETAL: No joint deformities. EXTREMITIES: Reveal no edema. NEUROLOGIC: The patient is unresponsive at this time secondary to drug overdose. LABORATORY DATA: Reveal white count of 7.3, hemoglobin of 14.8, and hematocrit 44.7, with platelets of 169,000. Arterial blood gas revealed the pH of 7.43, pCO2 of 31, and pO2 of 67, this is on 2 liters of nasal cannula. As far as, sodium is 143, potassium is 3.7, chloride is 109, CO2 of 26 with BUN of 13, and creatinine of 0.9. The patient's glucose is 113. The patient's LFTs are normal and his total creatine kinase is 1258. Chest x-ray reveals there is areas of atelectasis in both lower lobe regions, this is an unofficial reading. IMPRESSION: As far as my impression, this patient has a history of intravenous drug abuse and gastroesophageal reflux disease and presents with drug overdose with multiple substance abuse, noted on chemistry was cocaine, benzo, marijuana, opiates, barbiturates, as well as Tylenol. The patient presented with all treatment of status and unresponsive most likely secondary to the drug overdose. He does have history of gastroesophageal reflux disease as stated before and most likely secondary to drugs. PLAN: As far as our plan, we will continue to watch for as a seizure precaution, the patient is on antidote for possible Tylenol overdose. He is getting Narcan drip at this time as well. Neurology has been consulted and the patient is getting IV fluids normal saline at 75 mL an hour. He is being hemodynamically monitored closely. Once the patient regain consciousness, Psychiatry consult will be called. As far as other medications, we will continue with Protonix and we will follow his respiratory status closely. We will continue to treat aggressively along with the other consultants and the primary care doctor. Jason Goyal MD
[2017-01-03] MEDS: Propofol 10 mg/ml 1,000 MG/100 ML VIAL IV PRN ×2 (15:46→20:39)
--- NOTE | 2017-01-03 18:56 | CON ---
DATE: HISTORY OF PRESENT ILLNESS: This is a 36-year-old male with past medical history of IV drug abuse, anxiety, depression and ADHD. The patient came to the hospital with altered mental status with drug overdose. The patient was lethargic and the patient's brother went to his house and found the patient to be confused and altered and brought him to the emergency room. CAT scan of the head was done which was reported negative for bleed. PAST MEDICAL HISTORY: IV drug abuse and anxiety. ALLERGIES: NO KNOWN DRUG ALLERGIES. SOCIAL HISTORY: Positive for cocaine, benzo, barbiturate, opiate, marijuana and tobacco use. REVIEW OF SYSTEMS: 10-point review of system, the patient is unresponsive and on sedation and on ventilatory support. PHYSICAL EXAMINATION: GENERAL: Unresponsive on a ventilatory support. NEUROLOGIC: No spontaneous movement of the extremities noted. Deep tendon reflex is 1+, plantaris equivocal. Sensory appears intact. Cerebellar and gait deferred. IMPRESSION AND PLAN: Encephalopathy with toxic metabolic and multiple drug abuse, possible overdose. CAT scan of the head was negative. Workup in progress. Continue present management. We will follow up. Dhruv Perez MD
[2017-01-03 18:58] LABS: ALB/GLOB RATIO 1.2 (1.1-1.8); BILIRUBIN,DIRECT 0.6 mg/dL (0.0-0.4); BILIRUBIN,TOTAL 1.2 mg/dL (0.2-1.3); TOTAL PROTEIN 6.3 g/dL (5.8-8.3)
[2017-01-03 19:00] LABS: INR 1.36 (0.93-1.08); PARTIAL THROMBOPLASTIN TIME 35.3 Seconds (25.1-36.5)
[2017-01-04] MEDS: Sodium Chloride 0.9% 1,000 ML IV SCH ×2 (00:30→09:56)
[2017-01-04] MEDS: Propofol 10 mg/ml 1,000 MG/100 ML VIAL IV PRN ×6 (03:00→22:42)
[2017-01-04 07:07] LABS: BASO # 0.02 K/mm3 (0.0-2.0); BASO % 0.2 % (0.0-3.0); EOS # 0.1 (0.0-0.7); EOS % 0.5 % (1.5-5.0); GRAN # 8.18 (1.4-6.5); GRAN % 84.5 % (50.0-68.0); HEMATOCRIT 42.2 % (42.0-52.0); LYMPH # 0.7 (1.2-3.4); LYMPH % 6.8 % (22.0-35.0); MEAN CELL VOLUME 90.9 fl (80.0-105.0); MEAN CORPUSCULAR HEMOGLOBIN 30.2 pg (25.0-35.0); MEAN CORPUSCULAR HGB CONC 33.2 g/dl (31.0-37.0); MONO # 0.8 (0.1-0.6); RED CELL DISTRIBUTION WIDTH 14.9 % (11.5-14.5); WHITE BLOOD COUNT 9.7 10^3/ul (4.5-11.0)
[2017-01-04 07:13] LABS: INR 1.34 (0.93-1.08); PARTIAL THROMBOPLASTIN TIME 31.1 Seconds (25.1-36.5)
[2017-01-04 07:25] LABS: ALB/GLOB RATIO 1.2 (1.1-1.8); ALKALINE PHOSPHATASE 39 U/L (38-126); ALT/SGPT 39 U/L (7-56); AST/SGOT 41 U/L (17-59); BILIRUBIN,TOTAL 0.8 mg/dL (0.2-1.3); BLOOD UREA NITROGEN 8 mg/dL (7-21); CALCIUM 8.4 mg/dL (8.4-10.5); CARBON DIOXIDE 28 mmol/L (21-33); CHLORIDE 110 mmol/L (98-107); GFR AFRICAN-AMERICAN > 60; GLUCOSE,RANDOM 77 mg/dL (70-110); MAGNESIUM 1.9 mg/dL (1.7-2.2); PHOSPHOROUS 1.5 mg/dL (2.5-4.5); POTASSIUM 3.5 mmol/L (3.6-5.0); SODIUM 144 mmol/L (132-148); TOTAL PROTEIN 5.6 g/dL (5.8-8.3)
[2017-01-04] MEDS ORDERED: Potassium Phosphate 15 MMOLE in Sodium Chloride 0.9% 250 ML IVPB SCH (08:00)
--- NOTE | 2017-01-04 08:58 | RAD ---
HISTORY: interval changes COMPARISON: 01/03/2017 FINDINGS: LUNGS: No active pulmonary disease. PLEURA: No significant pleural effusion identified, no pneumothorax apparent. CARDIOVASCULAR: Normal. OSSEOUS STRUCTURES: No significant abnormalities. VISUALIZED UPPER ABDOMEN: Normal. OTHER FINDINGS: Endotracheal and nasogastric tube in satisfactory position IMPRESSION: No active disease.
--- NOTE | 2017-01-04 11:35 | CP.CCUPN ---
<LaurenceNikko - Last Filed: 01/04/17 11:29> CCU Subjective - Physician Review Events Since Last Encounter (Free Text): 01/04/17 11:[address] Ayala Pt seen and examined at bedside. Patient localizes to painful stimuli. Intubated and sedated. Does not open his eyes but does sit up and extend/flex neck. CCU Objective - Vital Signs / Intake & Output Vital Signs (Last 4 hours): Vital Signs Temp Pulse Resp BP Pulse Ox 01/04/17 10:30 99.0 F 97 H 100 01/04/17 10:20 99.0 F 82 100 01/04/17 10:10 99.1 F 82 100 01/04/17 10:00 99.1 F 79 149/87 100 01/04/17 09:50 99.3 F 83 99 01/04/17 09:40 99.5 F 86 99 01/04/17 09:30 99.5 F 89 99 01/04/17 09:20 99.7 F H 89 99 01/04/17 09:10 99.7 F H 90 100 01/04/17 09:00 150/85 01/04/17 08:59 99.5 F 87 100 01/04/17 08:50 99.5 F 90 100 01/04/17 08:40 99.5 F 95 H 100 01/04/17 08:30 99.5 F 101 H 100 01/04/17 08:20 99.5 F 104 H 100 01/04/17 08:10 99.5 F 96 H 100 01/04/17 08:00 99.5 F 91 H 162/100 H 100 01/04/17 07:50 99.5 F 105 H 17 100 01/04/17 07:40 99.5 F 88 100 01/04/17 07:30 99.5 F 84 100 Intake and Output (Last 8hrs): Intake & Output 01/03/17 01/04/17 01/04/17 22:59 06:59 14:59 Intake Total 1943 1295 100 Output Total 700 1200 Balance 1244 95 100 Weight 224 lb Intake: IV 1943 1295 100 Left Forearm 1100 195 Left Hand 744 900 Right Forearm 0 Oral 0 Output: Urine 700 1200 Urethral ([place]) 700 1200 Stool 0 Other: # Bowel Movements 0 - Physical Exam Head: Positive for: Atraumatic, Normocephalic. Negative for: Tenderness, Contusion, Swelling, Ecchymosis, Abrasion, Laceration Pupils: Positive for: Pinpoint Extroacular Muscles: Positive for: EOMI Conjunctiva: Positive for: Normal Ears: Positive for: Normal Mouth: Positive for: Moist Mucous Membranes Pharnyx: Positive for: Normal. Negative for: ERYTHEMA, EXUDATE Nose (External): Positive for: Atraumatic Nose (Internal): Positive for: Normal Inspection Neck: Positive for: Normal Range of Motion Respiratory/Chest: Positive for: Clear to Auscultation, Good Air Exchange. Negative for: Respiratory Distress, Accessory Muscle Use Cardiovascular: Positive for: Regular Rate and Rhythm, Normal S1, S2. Negative for: Murmurs Abdomen: Positive for: Normal Bowel Sounds. Negative for: Tenderness, Distention, Peritoneal Signs Back: Positive for: Normal Inspection Upper Extremity: Positive for: Normal Inspection. Negative for: Cyanosis, Edema Lower Extremity: Positive for: Normal Inspection. Negative for: Edema Neurological: Positive for: Other (localizes to tactile stimuli) Skin: Positive for: Warm, Dry, Normal Color. Negative for: Rashes - Medications Active Medications: Active Medications Generic Name Dose Route Start Last Admin Trade Name Freq PRN Reason Stop Dose Admin Propofol 1,000 mg in 100 mls @ 3.048 mls/hr 01/03/17 15:29 01/04/17 10:08 Diprivan IV 33.46 mcg/kg/min .Q24H PRN 20.398 mls/hr TITRATE PER MD ORDER Administration Protocol 5 MCG/KG/MIN Potassium Phosphate 15 mmole/ 255 mls @ 42.5 mls/hr 01/04/17 08:00 01/04/17 08:20 Sodium Chloride IVPB 01/04/17 11:59 42.5 mls/hr Q2 JOANNA Administration Sodium Chloride 1,000 mls @ 150 mls/hr 01/04/17 09:23 01/04/17 09:56 Sodium Chloride 0.9% IV 150 mls/hr .Q6H40M JOANNA Administration Lorazepam 2 mg 01/03/17 15:12 01/03/17 15:28 Ativan IVP 2 mg Q4H PRN Administration Anxiety Protocol Pantoprazole Sodium 40 mg 01/03/17 10:00 01/04/17 09:58 Protonix Inj IVP 40 mg DAILY JOANNA Administration - Patient Studies Lab Studies: Microbiology Studies 01/03/17 07:34 Urine Culture - Final Urine,[place] No Growth (<1,000 CFU/ML) 01/03/17 06:30 Blood Culture - Preliminary Blood NO GROWTH AFTER 24 HOURS 01/03/17 06:00 Blood Culture - Preliminary Blood NO GROWTH AFTER 24 HOURS Lab Studies 01/04/17 01/04/17 01/04/17 Range/Units 06:00 06:00 06:00 WBC (4.5-11.0) 10^3/ul RBC (3.5-6.1) 10^6/uL Hgb (14.0-18.0) g/dL Hct (42.0-52.0) % MCV (80.0-105.0) fl MCH (25.0-35.0) pg MCHC (31.0-37.0) g/dl RDW (11.5-14.5) % Plt Count (120.0-450.0) 10^3/uL MPV (7.0-11.0) fl Gran % (50.0-68.0) % Lymph % (Auto) (22.0-35.0) % [place] % (Auto) (1.0-6.0) % Eos % (Auto) (1.5-5.0) % Baso % (Auto) (0.0-3.0) % Gran # (1.4-6.5) Lymph # (1.2-3.4) [place] # (0.1-0.6) Eos # (0.0-0.7) Baso # (0.0-2.0) K/mm3 PT 14.8 H (9.4-12.5) SECONDS INR 1.34 H (0.93-1.08) APTT 31.1 (25.1-36.5) Seconds Sodium 144 (132-148) mmol/L Potassium 3.5 L (3.6-5.0) mmol/L Chloride 110 H (98-107) mmol/L Carbon Dioxide 28 (21-33) mmol/L Anion Gap 9 L (10-20) BUN 8 (7-21) mg/dL Creatinine 1.0 (0.8-1.5) mg/dl Est GFR ( Amer) > 60 Est GFR (Non-Af Amer) > 60 Random Glucose 77 (70-110) mg/dL Calcium 8.4 (8.4-10.5) mg/dL Phosphorus 1.5 L (2.5-4.5) mg/dL Magnesium 1.9 (1.7-2.2) mg/dL Total Bilirubin 0.8 (0.2-1.3) mg/dL Direct Bilirubin (0.0-0.4) mg/dL AST 41 (17-59) U/L ALT 39 (7-56) U/L Alkaline Phosphatase 39 (38-126) U/L Total Creatine Kinase (35-230) U/L CK-MB (CK-2) (0.0-3.6) ng/mL CK-MB (CK-2) % (2.5-3.0) % Troponin I ng/mL Total Protein 5.6 L (5.8-8.3) g/dL Albumin 3.0 (3.0-4.8) g/dL Globulin 2.6 gm/dL Albumin/Globulin Ratio 1.2 (1.1-1.8) Procalcitonin (0.19-0.49) NG/ML Acetaminophen < 10.0 L (10.0-20.0) ug/ml Hepatitis A IgM Ab (NEGATIVE) Hep Bs Antigen (NEGATIVE) Hep B Core IgM Ab (NEGATIVE) Hepatitis C Antibody (NEGATIVE) HIV 1&2 Antibody Screen (NEGATIVE) 01/04/17 01/03/17 01/03/17 Range/Units 06:00 18:30 18:30 WBC 9.7 D (4.5-11.0) 10^3/ul RBC 4.64 (3.5-6.1) 10^6/uL Hgb 14.0 (14.0-18.0) g/dL Hct 42.2 (42.0-52.0) % MCV 90.9 (80.0-105.0) fl MCH 30.2 (25.0-35.0) pg MCHC 33.2 (31.0-37.0) g/dl RDW 14.9 H (11.5-14.5) % Plt Count 149 (120.0-450.0) 10^3/uL MPV 10.0 (7.0-11.0) fl Gran % 84.5 H (50.0-68.0) % Lymph % (Auto) 6.8 L (22.0-35.0) % [place] % (Auto) 8.0 H (1.0-6.0) % Eos % (Auto) 0.5 L (1.5-5.0) % Baso % (Auto) 0.2 (0.0-3.0) % Gran # 8.18 H (1.4-6.5) Lymph # 0.7 L (1.2-3.4) [place] # 0.8 H (0.1-0.6) Eos # 0.1 (0.0-0.7) Baso # 0.02 (0.0-2.0) K/mm3 PT (9.4-12.5) SECONDS INR (0.93-1.08) APTT (25.1-36.5) Seconds Sodium (132-148) mmol/L Potassium (3.6-5.0) mmol/L Chloride (98-107) mmol/L Carbon Dioxide (21-33) mmol/L Anion Gap (10-20) BUN (7-21) mg/dL Creatinine (0.8-1.5) mg/dl Est GFR ( Amer) Est GFR (Non-Af Amer) Random Glucose (70-110) mg/dL Calcium (8.4-10.5) mg/dL Phosphorus (2.5-4.5) mg/dL Magnesium (1.7-2.2) mg/dL Total Bilirubin 1.2 (0.2-1.3) mg/dL Direct Bilirubin 0.6 H (0.0-0.4) mg/dL AST 46 (17-59) U/L ALT 49 (7-56) U/L Alkaline Phosphatase 40 (38-126) U/L Total Creatine Kinase (35-230) U/L CK-MB (CK-2) (0.0-3.6) ng/mL CK-MB (CK-2) % (2.5-3.0) % Troponin I ng/mL Total Protein 6.3 (5.8-8.3) g/dL Albumin 3.4 (3.0-4.8) g/dL Globulin 2.9 gm/dL Albumin/Globulin Ratio 1.2 (1.1-1.8) Procalcitonin (0.19-0.49) NG/ML Acetaminophen < 10.0 L (10.0-20.0) ug/ml Hepatitis A IgM Ab (NEGATIVE) Hep Bs Antigen (NEGATIVE) Hep B Core IgM Ab (NEGATIVE) Hepatitis C Antibody (NEGATIVE) HIV 1&2 Antibody Screen (NEGATIVE) 01/03/17 01/03/17 01/03/17 Range/Units 18:30 13:10 11:30 WBC (4.5-11.0) 10^3/ul RBC (3.5-6.1) 10^6/uL Hgb (14.0-18.0) g/dL Hct (42.0-52.0) % MCV (80.0-105.0) fl MCH (25.0-35.0) pg MCHC (31.0-37.0) g/dl RDW (11.5-14.5) % Plt Count (120.0-450.0) 10^3/uL MPV (7.0-11.0) fl Gran % (50.0-68.0) % Lymph % (Auto) (22.0-35.0) % [place] % (Auto) (1.0-6.0) % Eos % (Auto) (1.5-5.0) % Baso % (Auto) (0.0-3.0) % Gran # (1.4-6.5) Lymph # (1.2-3.4) [place] # (0.1-0.6) Eos # (0.0-0.7) Baso # (0.0-2.0) K/mm3 PT 14.9 H (9.4-12.5) SECONDS INR 1.36 H (0.93-1.08) APTT 35.3 (25.1-36.5) Seconds Sodium (132-148) mmol/L Potassium (3.6-5.0) mmol/L Chloride (98-107) mmol/L Carbon Dioxide (21-33) mmol/L Anion Gap (10-20) BUN (7-21) mg/dL Creatinine (0.8-1.5) mg/dl Est GFR ( Amer) Est GFR (Non-Af Amer) Random Glucose (70-110) mg/dL Calcium (8.4-10.5) mg/dL Phosphorus (2.5-4.5) mg/dL Magnesium (1.7-2.2) mg/dL Total Bilirubin (0.2-1.3) mg/dL Direct Bilirubin (0.0-0.4) mg/dL AST (17-59) U/L ALT (7-56) U/L Alkaline Phosphatase (38-126) U/L Total Creatine Kinase 1405 H (35-230) U/L CK-MB (CK-2) 12.8 H (0.0-3.6) ng/mL CK-MB (CK-2) % 0.9 L (2.5-3.0) % Troponin I < 0.01 ng/mL Total Protein (5.8-8.3) g/dL Albumin (3.0-4.8) g/dL Globulin gm/dL Albumin/Globulin Ratio (1.1-1.8) Procalcitonin < 0.05 L (0.19-0.49) NG/ML Acetaminophen (10.0-20.0) ug/ml Hepatitis A IgM Ab (NEGATIVE) Hep Bs Antigen (NEGATIVE) Hep B Core IgM Ab (NEGATIVE) Hepatitis C Antibody (NEGATIVE) HIV 1&2 Antibody Screen (NEGATIVE) 01/02/17 01/02/17 Range/Units 21:45 21:45 WBC (4.5-11.0) 10^3/ul RBC (3.5-6.1) 10^6/uL Hgb (14.0-18.0) g/dL Hct (42.0-52.0) % MCV (80.0-105.0) fl MCH (25.0-35.0) pg MCHC (31.0-37.0) g/dl RDW (11.5-14.5) % Plt Count (120.0-450.0) 10^3/uL MPV (7.0-11.0) fl Gran % (50.0-68.0) % Lymph % (Auto) (22.0-35.0) % [place] % (Auto) (1.0-6.0) % Eos % (Auto) (1.5-5.0) % Baso % (Auto) (0.0-3.0) % Gran # (1.4-6.5) Lymph # (1.2-3.4) [place] # (0.1-0.6) Eos # (0.0-0.7) Baso # (0.0-2.0) K/mm3 PT (9.4-12.5) SECONDS INR (0.93-1.08) APTT (25.1-36.5) Seconds Sodium (132-148) mmol/L Potassium (3.6-5.0) mmol/L Chloride (98-107) mmol/L Carbon Dioxide (21-33) mmol/L Anion Gap (10-20) BUN (7-21) mg/dL Creatinine (0.8-1.5) mg/dl Est GFR ( Amer) Est GFR (Non-Af Amer) Random Glucose (70-110) mg/dL Calcium (8.4-10.5) mg/dL Phosphorus (2.5-4.5) mg/dL Magnesium (1.7-2.2) mg/dL Total Bilirubin (0.2-1.3) mg/dL Direct Bilirubin (0.0-0.4) mg/dL AST (17-59) U/L ALT (7-56) U/L Alkaline Phosphatase (38-126) U/L Total Creatine Kinase (35-230) U/L CK-MB (CK-2) (0.0-3.6) ng/mL CK-MB (CK-2) % (2.5-3.0) % Troponin I ng/mL Total Protein (5.8-8.3) g/dL Albumin (3.0-4.8) g/dL Globulin gm/dL Albumin/Globulin Ratio (1.1-1.8) Procalcitonin (0.19-0.49) NG/ML Acetaminophen (10.0-20.0) ug/ml Hepatitis A IgM Ab Negative (NEGATIVE) Hep Bs Antigen Negative (NEGATIVE) Hep B Core IgM Ab Negative (NEGATIVE) Hepatitis C Antibody Negative (NEGATIVE) HIV 1&2 Antibody Screen Negative (NEGATIVE) Laboratory Results - last 24 hr 01/02/17 01/02/17 01/03/17 21:45 21:45 11:30 WBC RBC Hgb Hct MCV MCH MCHC RDW Plt Count MPV Gran % Lymph % (Auto) [place] % (Auto) Eos % (Auto) Baso % (Auto) Gran # Lymph # [place] # Eos # Baso # PT INR APTT Sodium Potassium Chloride Carbon Dioxide Anion Gap BUN Creatinine Est GFR ( Amer) Est GFR (Non-Af Amer) Random Glucose Calcium Phosphorus Magnesium Total Bilirubin Direct Bilirubin AST ALT Alkaline Phosphatase Total Creatine Kinase CK-MB (CK-2) CK-MB (CK-2) % Troponin I Total Protein Albumin Globulin Albumin/Globulin Ratio Procalcitonin < 0.05 L Acetaminophen Hepatitis A IgM Ab Negative Hep Bs Antigen Negative Hep B Core IgM Ab Negative Hepatitis C Antibody Negative HIV 1&2 Antibody Screen Negative 01/03/17 01/03/17 01/03/17 13:10 18:30 18:30 WBC RBC Hgb Hct MCV MCH MCHC RDW Plt Count MPV Gran % Lymph % (Auto) [place] % (Auto) Eos % (Auto) Baso % (Auto) Gran # Lymph # [place] # Eos # Baso # PT 14.9 H INR 1.36 H APTT 35.3 Sodium Potassium Chloride Carbon Dioxide Anion Gap BUN Creatinine Est GFR ( Amer) Est GFR (Non-Af Amer) Random Glucose Calcium Phosphorus Magnesium Total Bilirubin Direct Bilirubin AST ALT Alkaline Phosphatase Total Creatine Kinase 1405 H CK-MB (CK-2) 12.8 H CK-MB (CK-2) % 0.9 L Troponin I < 0.01 Total Protein Albumin Globulin Albumin/Globulin Ratio Procalcitonin Acetaminophen < 10.0 L Hepatitis A IgM Ab Hep Bs Antigen Hep B Core IgM Ab Hepatitis C Antibody HIV 1&2 Antibody Screen 01/03/17 01/04/17 01/04/17 18:30 06:00 06:00 WBC 9.7 D RBC 4.64 Hgb 14.0 Hct 42.2 MCV 90.9 MCH 30.2 MCHC 33.2 RDW 14.9 H Plt Count 149 MPV 10.0 Gran % 84.5 H Lymph % (Auto) 6.8 L [place] % (Auto) 8.0 H Eos % (Auto) 0.5 L Baso % (Auto) 0.2 Gran # 8.18 H Lymph # 0.7 L [place] # 0.8 H Eos # 0.1 Baso # 0.02 PT INR APTT Sodium 144 Potassium 3.5 L Chloride 110 H Carbon Dioxide 28 Anion Gap 9 L BUN 8 Creatinine 1.0 Est GFR ( Amer) > 60 Est GFR (Non-Af Amer) > 60 Random Glucose 77 Calcium 8.4 Phosphorus 1.5 L Magnesium 1.9 Total Bilirubin 1.2 0.8 Direct Bilirubin 0.6 H AST 46 41 ALT 49 39 Alkaline Phosphatase 40 39 Total Creatine Kinase CK-MB (CK-2) CK-MB (CK-2) % Troponin I Total Protein 6.3 5.6 L Albumin 3.4 3.0 Globulin 2.9 2.6 Albumin/Globulin Ratio 1.2 1.2 Procalcitonin Acetaminophen Hepatitis A IgM Ab Hep Bs Antigen Hep B Core IgM Ab Hepatitis C Antibody HIV 1&2 Antibody Screen 01/04/17 01/04/17 06:00 06:00 WBC RBC Hgb Hct MCV MCH MCHC RDW Plt Count MPV Gran % Lymph % (Auto) [place] % (Auto) Eos % (Auto) Baso % (Auto) Gran # Lymph # [place] # Eos # Baso # PT 14.8 H INR 1.34 H APTT 31.1 Sodium Potassium Chloride Carbon Dioxide Anion Gap BUN Creatinine Est GFR ( Amer) Est GFR (Non-Af Amer) Random Glucose Calcium Phosphorus Magnesium Total Bilirubin Direct Bilirubin AST ALT Alkaline Phosphatase Total Creatine Kinase CK-MB (CK-2) CK-MB (CK-2) % Troponin I Total Protein Albumin Globulin Albumin/Globulin Ratio Procalcitonin Acetaminophen < 10.0 L Hepatitis A IgM Ab Hep Bs Antigen Hep B Core IgM Ab Hepatitis C Antibody HIV 1&2 Antibody Screen Fingerstick Blood Sugar Results: 105 Critical Care Progress Note - Nutrition Nutrition: Nutrition Category Date Time Status NPO Diet [DIET] Diets 01/02/17 Dinner Ordered Assessment/Plan - Assessment and Plan (Free Text) Assessment: 36yo M with hx of IVDA here with multisubstance abuse, suicidal ideation and possible homicidal ideation. Patient was intubated in the field for airway protection. Found to be positive for Benzo, Cocaine, Marijuana, Opiates, Barbituates and Tylenol toxicity. Currently tylenol level negative. 1. AMS likely secondary to polysubstance abuse CT head negative Consider EEG/MRI head tomorrow if patient's mental status does not improve Utox: +Cocaine, +Benzo, +Marijuana, +Opiates, +Jessa, Tylenol toxicty Neuro following Intubated for airway protection 2. Rhabdo likely secondary to Cocaine abuse NS @ 150 3. Electrolyte imbalance Monitor and replete as necessary Discussed case with Dr. Jamie Dang PGY1 <Ari Ayala - Last Filed: 01/04/17 12:01> CCU Objective - Vital Signs / Intake & Output Vital Signs (Last 4 hours): Vital Signs Temp Pulse BP Pulse Ox 01/04/17 10:30 99.0 F 97 H 100 01/04/17 10:20 99.0 F 82 100 01/04/17 10:10 99.1 F 82 100 01/04/17 10:00 99.1 F 79 149/87 100 01/04/17 09:50 99.3 F 83 99 01/04/17 09:40 99.5 F 86 99 01/04/17 09:30 99.5 F 89 99 01/04/17 09:20 99.7 F H 89 99 01/04/17 09:10 99.7 F H 90 100 01/04/17 09:00 150/85 01/04/17 08:59 99.5 F 87 100 01/04/17 08:50 99.5 F 90 100 01/04/17 08:40 99.5 F 95 H 100 01/04/17 08:30 99.5 F 101 H 100 01/04/17 08:20 99.5 F 104 H 100 01/04/17 08:10 99.5 F 96 H 100 01/04/17 08:00 99.5 F 91 H 162/100 H 100 Intake and Output (Last 8hrs): Intake & Output 01/03/17 01/04/17 01/04/17 22:59 06:59 14:59 Intake Total 1943 1295 100 Output Total 700 1200 Balance 1244 95 100 Weight 224 lb Intake: IV 1943 1295 100 Left Forearm 1100 195 Left Hand 744 900 Right Forearm 0 Oral 0 Output: Urine 700 1200 Urethral ([place]) 700 1200 Stool 0 Other: # Bowel Movements 0 - Medications Active Medications: Active Medications Generic Name Dose Route Start Last Admin Trade Name Freq PRN Reason Stop Dose Admin Propofol 1,000 mg in 100 mls @ 3.048 mls/hr 01/03/17 15:29 01/04/17 10:08 Diprivan IV 33.46 mcg/kg/min .Q24H PRN 20.398 mls/hr TITRATE PER MD ORDER Administration Protocol 5 MCG/KG/MIN Potassium Phosphate 15 mmole/ 255 mls @ 42.5 mls/hr 01/04/17 08:00 01/04/17 08:20 Sodium Chloride IVPB 01/04/17 11:59 42.5 mls/hr Q2 JOANNA Administration Sodium Chloride 1,000 mls @ 150 mls/hr 01/04/17 09:23 01/04/17 09:56 Sodium Chloride 0.9% IV 150 mls/hr .Q6H40M JOANNA Administration Lorazepam 2 mg 01/03/17 15:12 01/03/17 15:28 Ativan IVP 2 mg Q4H PRN Administration Anxiety Protocol Pantoprazole Sodium 40 mg 01/03/17 10:00 01/04/17 09:58 Protonix Inj IVP 40 mg DAILY JOANNA Administration - Patient Studies Lab Studies: Microbiology Studies 01/03/17 07:34 Urine Culture - Final Urine,[place] No Growth (<1,000 CFU/ML) 01/03/17 06:30 Blood Culture - Preliminary Blood NO GROWTH AFTER 24 HOURS 01/03/17 06:00 Blood Culture - Preliminary Blood NO GROWTH AFTER 24 HOURS Lab Studies 01/04/17 01/04/17 01/04/17 Range/Units 06:00 06:00 06:00 WBC (4.5-11.0) 10^3/ul RBC (3.5-6.1) 10^6/uL Hgb (14.0-18.0) g/dL Hct (42.0-52.0) % MCV (80.0-105.0) fl MCH (25.0-35.0) pg MCHC (31.0-37.0) g/dl RDW (11.5-14.5) % Plt Count (120.0-450.0) 10^3/uL MPV (7.0-11.0) fl Gran % (50.0-68.0) % Lymph % (Auto) (22.0-35.0) % [place] % (Auto) (1.0-6.0) % Eos % (Auto) (1.5-5.0) % Baso % (Auto) (0.0-3.0) % Gran # (1.4-6.5) Lymph # (1.2-3.4) [place] # (0.1-0.6) Eos # (0.0-0.7) Baso # (0.0-2.0) K/mm3 PT 14.8 H (9.4-12.5) SECONDS INR 1.34 H (0.93-1.08) APTT 31.1 (25.1-36.5) Seconds Sodium 144 (132-148) mmol/L Potassium 3.5 L (3.6-5.0) mmol/L Chloride 110 H (98-107) mmol/L Carbon Dioxide 28 (21-33) mmol/L Anion Gap 9 L (10-20) BUN 8 (7-21) mg/dL Creatinine 1.0 (0.8-1.5) mg/dl Est GFR ( Amer) > 60 Est GFR (Non-Af Amer) > 60 Random Glucose 77 (70-110) mg/dL Calcium 8.4 (8.4-10.5) mg/dL Phosphorus 1.5 L (2.5-4.5) mg/dL Magnesium 1.9 (1.7-2.2) mg/dL Total Bilirubin 0.8 (0.2-1.3) mg/dL Direct Bilirubin (0.0-0.4) mg/dL AST 41 (17-59) U/L ALT 39 (7-56) U/L Alkaline Phosphatase 39 (38-126) U/L Total Creatine Kinase (35-230) U/L CK-MB (CK-2) (0.0-3.6) ng/mL CK-MB (CK-2) % (2.5-3.0) % Troponin I ng/mL Total Protein 5.6 L (5.8-8.3) g/dL Albumin 3.0 (3.0-4.8) g/dL Globulin 2.6 gm/dL Albumin/Globulin Ratio 1.2 (1.1-1.8) Procalcitonin (0.19-0.49) NG/ML Acetaminophen < 10.0 L (10.0-20.0) ug/ml Hepatitis A IgM Ab (NEGATIVE) Hep Bs Antigen (NEGATIVE) Hep B Core IgM Ab (NEGATIVE) Hepatitis C Antibody (NEGATIVE) HIV 1&2 Antibody Screen (NEGATIVE) 01/04/17 01/03/17 01/03/17 Range/Units 06:00 18:30 18:30 WBC 9.7 D (4.5-11.0) 10^3/ul RBC 4.64 (3.5-6.1) 10^6/uL Hgb 14.0 (14.0-18.0) g/dL Hct 42.2 (42.0-52.0) % MCV 90.9 (80.0-105.0) fl MCH 30.2 (25.0-35.0) pg MCHC 33.2 (31.0-37.0) g/dl RDW 14.9 H (11.5-14.5) % Plt Count 149 (120.0-450.0) 10^3/uL MPV 10.0 (7.0-11.0) fl Gran % 84.5 H (50.0-68.0) % Lymph % (Auto) 6.8 L (22.0-35.0) % [place] % (Auto) 8.0 H (1.0-6.0) % Eos % (Auto) 0.5 L (1.5-5.0) % Baso % (Auto) 0.2 (0.0-3.0) % Gran # 8.18 H (1.4-6.5) Lymph # 0.7 L (1.2-3.4) [place] # 0.8 H (0.1-0.6) Eos # 0.1 (0.0-0.7) Baso # 0.02 (0.0-2.0) K/mm3 PT (9.4-12.5) SECONDS INR (0.93-1.08) APTT (25.1-36.5) Seconds Sodium (132-148) mmol/L Potassium (3.6-5.0) mmol/L Chloride (98-107) mmol/L Carbon Dioxide (21-33) mmol/L Anion Gap (10-20) BUN (7-21) mg/dL Creatinine (0.8-1.5) mg/dl Est GFR ( Amer) Est GFR (Non-Af Amer) Random Glucose (70-110) mg/dL Calcium (8.4-10.5) mg/dL Phosphorus (2.5-4.5) mg/dL Magnesium (1.7-2.2) mg/dL Total Bilirubin 1.2 (0.2-1.3) mg/dL Direct Bilirubin 0.6 H (0.0-0.4) mg/dL AST 46 (17-59) U/L ALT 49 (7-56) U/L Alkaline Phosphatase 40 (38-126) U/L Total Creatine Kinase (35-230) U/L CK-MB (CK-2) (0.0-3.6) ng/mL CK-MB (CK-2) % (2.5-3.0) % Troponin I ng/mL Total Protein 6.3 (5.8-8.3) g/dL Albumin 3.4 (3.0-4.8) g/dL Globulin 2.9 gm/dL Albumin/Globulin Ratio 1.2 (1.1-1.8) Procalcitonin (0.19-0.49) NG/ML Acetaminophen < 10.0 L (10.0-20.0) ug/ml Hepatitis A IgM Ab (NEGATIVE) Hep Bs Antigen (NEGATIVE) Hep B Core IgM Ab (NEGATIVE) Hepatitis C Antibody (NEGATIVE) HIV 1&2 Antibody Screen (NEGATIVE) 01/03/17 01/03/17 01/03/17 Range/Units 18:30 13:10 11:30 WBC (4.5-11.0) 10^3/ul RBC (3.5-6.1) 10^6/uL Hgb (14.0-18.0) g/dL Hct (42.0-52.0) % MCV (80.0-105.0) fl MCH (25.0-35.0) pg MCHC (31.0-37.0) g/dl RDW (11.5-14.5) % Plt Count (120.0-450.0) 10^3/uL MPV (7.0-11.0) fl Gran % (50.0-68.0) % Lymph % (Auto) (22.0-35.0) % [place] % (Auto) (1.0-6.0) % Eos % (Auto) (1.5-5.0) % Baso % (Auto) (0.0-3.0) % Gran # (1.4-6.5) Lymph # (1.2-3.4) [place] # (0.1-0.6) Eos # (0.0-0.7) Baso # (0.0-2.0) K/mm3 PT 14.9 H (9.4-12.5) SECONDS INR 1.36 H (0.93-1.08) APTT 35.3 (25.1-36.5) Seconds Sodium (132-148) mmol/L Potassium (3.6-5.0) mmol/L Chloride (98-107) mmol/L Carbon Dioxide (21-33) mmol/L Anion Gap (10-20) BUN (7-21) mg/dL Creatinine (0.8-1.5) mg/dl Est GFR ( Amer) Est GFR (Non-Af Amer) Random Glucose (70-110) mg/dL Calcium (8.4-10.5) mg/dL Phosphorus (2.5-4.5) mg/dL Magnesium (1.7-2.2) mg/dL Total Bilirubin (0.2-1.3) mg/dL Direct Bilirubin (0.0-0.4) mg/dL AST (17-59) U/L ALT (7-56) U/L Alkaline Phosphatase (38-126) U/L Total Creatine Kinase 1405 H (35-230) U/L CK-MB (CK-2) 12.8 H (0.0-3.6) ng/mL CK-MB (CK-2) % 0.9 L (2.5-3.0) % Troponin I < 0.01 ng/mL Total Protein (5.8-8.3) g/dL Albumin (3.0-4.8) g/dL Globulin gm/dL Albumin/Globulin Ratio (1.1-1.8) Procalcitonin < 0.05 L (0.19-0.49) NG/ML Acetaminophen (10.0-20.0) ug/ml Hepatitis A IgM Ab (NEGATIVE) Hep Bs Antigen (NEGATIVE) Hep B Core IgM Ab (NEGATIVE) Hepatitis C Antibody (NEGATIVE) HIV 1&2 Antibody Screen (NEGATIVE) 01/02/17 01/02/17 Range/Units 21:45 21:45 WBC (4.5-11.0) 10^3/ul RBC (3.5-6.1) 10^6/uL Hgb (14.0-18.0) g/dL Hct (42.0-52.0) % MCV (80.0-105.0) fl MCH (25.0-35.0) pg MCHC (31.0-37.0) g/dl RDW (11.5-14.5) % Plt Count (120.0-450.0) 10^3/uL MPV (7.0-11.0) fl Gran % (50.0-68.0) % Lymph % (Auto) (22.0-35.0) % [place] % (Auto) (1.0-6.0) % Eos % (Auto) (1.5-5.0) % Baso % (Auto) (0.0-3.0) % Gran # (1.4-6.5) Lymph # (1.2-3.4) [place] # (0.1-0.6) Eos # (0.0-0.7) Baso # (0.0-2.0) K/mm3 PT (9.4-12.5) SECONDS INR (0.93-1.08) APTT (25.1-36.5) Seconds Sodium (132-148) mmol/L Potassium (3.6-5.0) mmol/L Chloride (98-107) mmol/L Carbon Dioxide (21-33) mmol/L Anion Gap (10-20) BUN (7-21) mg/dL Creatinine (0.8-1.5) mg/dl Est GFR ( Amer) Est GFR (Non-Af Amer) Random Glucose (70-110) mg/dL Calcium (8.4-10.5) mg/dL Phosphorus (2.5-4.5) mg/dL Magnesium (1.7-2.2) mg/dL Total Bilirubin (0.2-1.3) mg/dL Direct Bilirubin (0.0-0.4) mg/dL AST (17-59) U/L ALT (7-56) U/L Alkaline Phosphatase (38-126) U/L Total Creatine Kinase (35-230) U/L CK-MB (CK-2) (0.0-3.6) ng/mL CK-MB (CK-2) % (2.5-3.0) % Troponin I ng/mL Total Protein (5.8-8.3) g/dL Albumin (3.0-4.8) g/dL Globulin gm/dL Albumin/Globulin Ratio (1.1-1.8) Procalcitonin (0.19-0.49) NG/ML Acetaminophen (10.0-20.0) ug/ml Hepatitis A IgM Ab Negative (NEGATIVE) Hep Bs Antigen Negative (NEGATIVE) Hep B Core IgM Ab Negative (NEGATIVE) Hepatitis C Antibody Negative (NEGATIVE) HIV 1&2 Antibody Screen Negative (NEGATIVE) Laboratory Results - last 24 hr 01/02/17 01/02/17 01/03/17 21:45 21:45 11:30 WBC RBC Hgb Hct MCV MCH MCHC RDW Plt Count MPV Gran % Lymph % (Auto) [place] % (Auto) Eos % (Auto) Baso % (Auto) Gran # Lymph # [place] # Eos # Baso # PT INR APTT Sodium Potassium Chloride Carbon Dioxide Anion Gap BUN Creatinine Est GFR ( Amer) Est GFR (Non-Af Amer) Random Glucose Calcium Phosphorus Magnesium Total Bilirubin Direct Bilirubin AST ALT Alkaline Phosphatase Total Creatine Kinase CK-MB (CK-2) CK-MB (CK-2) % Troponin I Total Protein Albumin Globulin Albumin/Globulin Ratio Procalcitonin < 0.05 L Acetaminophen Hepatitis A IgM Ab Negative Hep Bs Antigen Negative Hep B Core IgM Ab Negative Hepatitis C Antibody Negative HIV 1&2 Antibody Screen Negative 01/03/17 01/03/17 01/03/17 13:10 18:30 18:30 WBC RBC Hgb Hct MCV MCH MCHC RDW Plt Count MPV Gran % Lymph % (Auto) [place] % (Auto) Eos % (Auto) Baso % (Auto) Gran # Lymph # [place] # Eos # Baso # PT 14.9 H INR 1.36 H APTT 35.3 Sodium Potassium Chloride Carbon Dioxide Anion Gap BUN Creatinine Est GFR ( Amer) Est GFR (Non-Af Amer) Random Glucose Calcium Phosphorus Magnesium Total Bilirubin Direct Bilirubin AST ALT Alkaline Phosphatase Total Creatine Kinase 1405 H CK-MB (CK-2) 12.8 H CK-MB (CK-2) % 0.9 L Troponin I < 0.01 Total Protein Albumin Globulin Albumin/Globulin Ratio Procalcitonin Acetaminophen < 10.0 L Hepatitis A IgM Ab Hep Bs Antigen Hep B Core IgM Ab Hepatitis C Antibody HIV 1&2 Antibody Screen 01/03/17 01/04/17 01/04/17 18:30 06:00 06:00 WBC 9.7 D RBC 4.64 Hgb 14.0 Hct 42.2 MCV 90.9 MCH 30.2 MCHC 33.2 RDW 14.9 H Plt Count 149 MPV 10.0 Gran % 84.5 H Lymph % (Auto) 6.8 L [place] % (Auto) 8.0 H Eos % (Auto) 0.5 L Baso % (Auto) 0.2 Gran # 8.18 H Lymph # 0.7 L [place] # 0.8 H Eos # 0.1 Baso # 0.02 PT INR APTT Sodium 144 Potassium 3.5 L Chloride 110 H Carbon Dioxide 28 Anion Gap 9 L BUN 8 Creatinine 1.0 Est GFR ( Amer) > 60 Est GFR (Non-Af Amer) > 60 Random Glucose 77 Calcium 8.4 Phosphorus 1.5 L Magnesium 1.9 Total Bilirubin 1.2 0.8 Direct Bilirubin 0.6 H AST 46 41 ALT 49 39 Alkaline Phosphatase 40 39 Total Creatine Kinase CK-MB (CK-2) CK-MB (CK-2) % Troponin I Total Protein 6.3 5.6 L Albumin 3.4 3.0 Globulin 2.9 2.6 Albumin/Globulin Ratio 1.2 1.2 Procalcitonin Acetaminophen Hepatitis A IgM Ab Hep Bs Antigen Hep B Core IgM Ab Hepatitis C Antibody HIV 1&2 Antibody Screen 01/04/17 01/04/17 06:00 06:00 WBC RBC Hgb Hct MCV MCH MCHC RDW Plt Count MPV Gran % Lymph % (Auto) [place] % (Auto) Eos % (Auto) Baso % (Auto) Gran # Lymph # [place] # Eos # Baso # PT 14.8 H INR 1.34 H APTT 31.1 Sodium Potassium Chloride Carbon Dioxide Anion Gap BUN Creatinine Est GFR ( Amer) Est GFR (Non-Af Amer) Random Glucose Calcium Phosphorus Magnesium Total Bilirubin Direct Bilirubin AST ALT Alkaline Phosphatase Total Creatine Kinase CK-MB (CK-2) CK-MB (CK-2) % Troponin I Total Protein Albumin Globulin Albumin/Globulin Ratio Procalcitonin Acetaminophen < 10.0 L Hepatitis A IgM Ab Hep Bs Antigen Hep B Core IgM Ab Hepatitis C Antibody HIV 1&2 Antibody Screen Critical Care Progress Note - Nutrition Nutrition: Nutrition Category Date Time Status NPO Diet [DIET] Diets 01/02/17 Dinner Ordered Assessment/Plan - Assessment and Plan (Free Text) Assessment: 11:57AM Patient seen and examined on rounds with resident, agree with note with following additions/exceptions: Patient is 36yo male with PMHx polysubstance abuse, suicidal ideation, found down, altered, intubated for airway protection. Utox Positve for cocaine, BZD, THC, Opiates, and barbiturates. Patient is currently sedated, intubated. Patient lifts head up, and moves all 4 extremities, but does not follow commands , responds to painful stimuli. Not read to be extubated. AMS Polysubstance abuse Rhabdo Recommend: - cont with ventilatory support, low tidal vol ventilation - follow up cultures - daily pressure support trials - daily sedation vacation - consider MRI, and EEG if patients mental status does not improve - IVF hydration, NS at 150cc/hr - GI ppx - DVT ppx - FS control - monitor in MICU Critical care time 40 minutes
--- NOTE | 2017-01-04 12:54 | CP.PCM.PN ---
<Shira Velasquez - Last Filed: 01/04/17 17:59> Subjective - Date & Time of Evaluation Date of Evaluation: 01/04/17 Time of Evaluation: 09:30 - Subjective Subjective: PGY-2 Neurology progress note for Dr. Perez's service Patient seen and examined at bedside in ICU. Patient is sedated on propofol. Responds to verbal and painful stimuli. Patient is intubated for airway protection. Objective - Vital Signs/Intake and Output Vital Signs (last 24 hours): Temp Pulse Resp BP Pulse Ox 99.0 F 97 H 17 149/87 100 01/04/17 10:30 01/04/17 10:30 01/04/17 07:50 01/04/17 10:00 01/04/17 10:30 Intake and Output: 01/04/17 01/04/17 06:59 18:59 Intake Total 1395 100 Output Total 1200 Balance 195 100 - Medications Medications: Current Medications Propofol (Diprivan) 1,000 mg in 100 mls @ 3.048 mls/hr IV .Q24H PRN; Protocol; 5 MCG/KG/MIN PRN Reason: TITRATE PER MD ORDER Last Admin: 01/04/17 10:08 Dose: 33.46 mcg/kg/min, 20.398 mls/hr Sodium Chloride (Sodium Chloride 0.9%) 1,000 mls @ 150 mls/hr IV .Q6H40M [facility] Last Admin: 01/04/17 09:56 Dose: 150 mls/hr Lorazepam (Ativan) 2 mg IVP Q4H PRN; Protocol PRN Reason: Anxiety Last Admin: 01/03/17 15:28 Dose: 2 mg Pantoprazole Sodium (Protonix Inj) 40 mg IVP DAILY [facility] Last Admin: 01/04/17 09:58 Dose: 40 mg - Labs Labs: 01/04/17 06:00 01/04/17 06:00 PT 14.8 SECONDS (9.4-12.5) H 01/04/17 06:00 INR 1.34 (0.93-1.08) H 01/04/17 06:00 APTT 31.1 Seconds (25.1-36.5) 01/04/17 06:00 - Constitutional Appears: No Acute Distress - Head Exam Head Exam: ATRAUMATIC, NORMAL INSPECTION, NORMOCEPHALIC - Eye Exam Eye Exam: Normal appearance - ENT Exam ENT Exam: Mucous Membranes Moist - Respiratory Exam Respiratory Exam: Clear to Ausculation Bilateral, NORMAL BREATHING PATTERN. absent: Rhonchi, Wheezes, Respiratory Distress - Cardiovascular Exam Cardiovascular Exam: REGULAR RHYTHM. absent: Tachycardia, Murmur - Skin Skin Exam: Dry, Intact, Normal Color, Warm Assessment and Plan - Assessment and Plan (Free Text) Assessment: 36 yo male with PMH of IV drug abuse, depression, anxiety presented to ED with AMS due to toxic metabolic and poly substance abuse. 1. AMS - patient is intubated for airway protection, sedated on propofol - CT head is negative - urine tox positive for cocaine, benzo, majiuana, opiates, barbiturates and acetaminophen - acetaminophen levels downtrending - consider repeat CT head tomorrow - EEG tomorrow if patient is not more responsive, hol doff for now due to medication effect - continue medical management per ICY team Case reviewed and discussed with attending, Dr. Perez <Cornelio Perez - Last Filed: 01/04/17 22:02> Objective - Vital Signs/Intake and Output Vital Signs (last 24 hours): Temp Pulse Resp BP Pulse Ox 99.5 F 87 17 145/86 100 01/04/17 20:10 01/04/17 21:10 01/04/17 07:50 01/04/17 21:00 01/04/17 21:10 Intake and Output: 01/04/17 01/05/17 18:59 06:59 Intake Total 2550 100 Output Total 1775 Balance 775 100 - Medications Medications: Current Medications Propofol (Diprivan) 1,000 mg in 100 mls @ 3.048 mls/hr IV .Q24H PRN; Protocol; 5 MCG/KG/MIN PRN Reason: TITRATE PER MD ORDER Last Titration: 01/04/17 20:47 Dose: 70 mcg/kg/min, 42.674 mls/hr Sodium Chloride (Sodium Chloride 0.9%) 1,000 mls @ 150 mls/hr IV .Q6H40M [facility] Last Admin: 01/04/17 09:56 Dose: 150 mls/hr Lorazepam (Ativan) 2 mg IVP Q4H PRN; Protocol PRN Reason: Anxiety Last Admin: 01/03/17 15:28 Dose: 2 mg Pantoprazole Sodium (Protonix Inj) 40 mg IVP DAILY [facility] Last Admin: 01/04/17 09:58 Dose: 40 mg - Labs Labs: 01/04/17 06:00 01/04/17 06:00 PT 14.8 SECONDS (9.4-12.5) H 01/04/17 06:00 INR 1.34 (0.93-1.08) H 01/04/17 06:00 APTT 31.1 Seconds (25.1-36.5) 01/04/17 06:00 Attending/Attestation - Attestation I have personally seen and examined this patient.: Yes I have fully participated in the care of the patient.: Yes I have reviewed all pertinent clinical information, including history, physical exam and plan: Yes
--- NOTE | 2017-01-04 16:05 | CP.PCM.PN ---
<Milton Rosales - Last Filed: 01/04/17 16:00> Subjective - Date & Time of Evaluation Date of Evaluation: 01/04/17 Time of Evaluation: 16:00 - Subjective Subjective: Medicine progress note for Dr. Maximo Rosales DO PGY - 1, Pt s/e bedside. History limited 2/2 mental status and intubation. No family at bedside. Objective - Vital Signs/Intake and Output Vital Signs (last 24 hours): Temp Pulse Resp BP Pulse Ox 99.0 F 97 H 17 149/87 100 01/04/17 10:30 01/04/17 10:30 01/04/17 07:50 01/04/17 10:00 01/04/17 10:30 Intake and Output: 01/04/17 01/04/17 06:59 18:59 Intake Total 1395 100 Output Total 1200 Balance 195 100 - Medications Medications: Current Medications Propofol (Diprivan) 1,000 mg in 100 mls @ 3.048 mls/hr IV .Q24H PRN; Protocol; 5 MCG/KG/MIN PRN Reason: TITRATE PER MD ORDER Last Admin: 01/04/17 10:08 Dose: 33.46 mcg/kg/min, 20.398 mls/hr Sodium Chloride (Sodium Chloride 0.9%) 1,000 mls @ 150 mls/hr IV .Q6H40M [facility] Last Admin: 01/04/17 09:56 Dose: 150 mls/hr Lorazepam (Ativan) 2 mg IVP Q4H PRN; Protocol PRN Reason: Anxiety Last Admin: 01/03/17 15:28 Dose: 2 mg Pantoprazole Sodium (Protonix Inj) 40 mg IVP DAILY [facility] Last Admin: 01/04/17 09:58 Dose: 40 mg - Labs Labs: 01/04/17 06:00 01/04/17 06:00 PT 14.8 SECONDS (9.4-12.5) H 01/04/17 06:00 INR 1.34 (0.93-1.08) H 01/04/17 06:00 APTT 31.1 Seconds (25.1-36.5) 01/04/17 06:00 - Additional Findings Additional findings: Phys Exam: VS as below Const'l: +Pt intubated; a&o x 4, nad Head/Neck: +Pt has coronal sutures on the right side of his head; neck supple , no jvd, trachea midline, carotid midline, no cervical/head mass Eyes: afshin, nonicteric sclera, eom intact ENT: auditory acuity grossly intact, throat not congested, no nasal deformity Cardio: rrr, no m/r/g, no carotid bruit, nml s1, s2 Pulm: no accessory muscle use, equal nml breath sounds bilaterally, ctab Abd: s/nt/nd, nbs x 4 q, no palpable masses Derm: no rashes, no ulcers, no lesions Extr: no edema, no cyanosis, no calf tenderness, no lesions, no varicosities Neuro: cn II-XII grossly intact, ue and le 5/5 muscle strength bilaterally, no los ue, le bilaterally and core Assessment and Plan - Assessment and Plan (Free Text) Assessment: A/P 36 y/o M with past medical history of IV drug abuse who presents with AMS secondary to multisubstance overdose in the setting of respiratory failure. UDS positive for cocaine, benzo, marijuana, opiate, barbiturate, tylenol. No EKG changes at this time with tylenol level decreasing. Pt intubated to protect airway. Will monitor for possible aspiration pneumonia. Procal ordered. AMS, likely 2/2 substance abuse - Head CT negative - NAC completed - EKG q8h, no EKG changes at this time - Neuro check q4h, Aspiration precaution, Head of bed elevated 30 degrees, Seizure precaution - NS@150 - Intubated: FiO2: 40%, 22HR 2. Elevated Bilirubin - Resolved - T. Bili: 3.6 initially, decreased to 1.1 - Hep panel pending 3. Substance abuse (IVDA) - HIV pending - Will consult psych once patient is alert and order 1:1 4. PPX - Protonix/SCDs Dispo: Need psych consult 1:1 as soon as patient alert and extubated. <Rolanda Marsh B - Last Filed: 01/04/17 17:36> Objective - Vital Signs/Intake and Output Vital Signs (last 24 hours): Temp Pulse Resp BP Pulse Ox 99.9 F H 80 17 147/17 L 100 01/04/17 16:40 01/04/17 16:40 01/04/17 07:50 01/04/17 16:00 01/04/17 16:40 Intake and Output: 01/04/17 01/04/17 06:59 18:59 Intake Total 1395 200 Output Total 1200 Balance 195 200 - Medications Medications: Current Medications Propofol (Diprivan) 1,000 mg in 100 mls @ 3.048 mls/hr IV .Q24H PRN; Protocol; 5 MCG/KG/MIN PRN Reason: TITRATE PER MD ORDER Last Admin: 01/04/17 16:15 Dose: 33.46 mcg/kg/min, 20.398 mls/hr Sodium Chloride (Sodium Chloride 0.9%) 1,000 mls @ 150 mls/hr IV .Q6H40M [facility] Last Admin: 01/04/17 09:56 Dose: 150 mls/hr Lorazepam (Ativan) 2 mg IVP Q4H PRN; Protocol PRN Reason: Anxiety Last Admin: 01/03/17 15:28 Dose: 2 mg Pantoprazole Sodium (Protonix Inj) 40 mg IVP DAILY [facility] Last Admin: 01/04/17 09:58 Dose: 40 mg - Labs Labs: 01/04/17 06:00 01/04/17 06:00 PT 14.8 SECONDS (9.4-12.5) H 01/04/17 06:00 INR 1.34 (0.93-1.08) H 01/04/17 06:00 APTT 31.1 Seconds (25.1-36.5) 01/04/17 06:00 Attending/Attestation - Attestation I have personally seen and examined this patient.: Yes I have fully participated in the care of the patient.: Yes I have reviewed all pertinent clinical information, including history, physical exam and plan: Yes Notes (Text): I have seen and examined the patient at bedside. Agree with the above note with the following additions/ exceptions: Briefly this is 36 year old male with history of IVDA, Polysubstance abuse (opioids, cocaine, barbiturates, marijuana ) who was brought for evaluation of AMS. He got intubated yesterday due to respiratory distress. Tylenol level was really high upon admission and now its < 10. He was given narcan and acetylcysteine. Poison control on the case. No family member is at the bedside. Continue ICU management. Will closely monitor his LFTs. HIV and hep panel negative. As per team, suicide note was found on the scene. There are superficial cut suarez on both wrists. Will consult psych once patient is more awake. Will start 1:1 once patient is awake. Patient will not be allowed to leave AMA unless cleared by psych. Upon discharge patient will follow up with PMD of choice. Dr Rolanda Marsh
[2017-01-05] MEDS: Propofol 10 mg/ml 1,000 MG/100 ML VIAL IV PRN ×3 (00:50→05:23)
[2017-01-05] MEDS: Sodium Chloride 0.9% 1,000 ML IV SCH (01:16)
[2017-01-05 06:40] LABS: ARTERIAL BLOOD GAS HCO3 24.5 mmol/L (21-28); ARTERIAL BLOOD GAS PH 7.44 (7.35-7.45)
[2017-01-05 07:25] LABS: BASO # 0.01 K/mm3 (0.0-2.0); BASO % 0.1 % (0.0-3.0); EOS # 0.1 (0.0-0.7); EOS % 1.1 % (1.5-5.0); GRAN # 6.31 (1.4-6.5); GRAN % 74.7 % (50.0-68.0); HEMATOCRIT 41.3 % (42.0-52.0); LYMPH # 1.1 (1.2-3.4); LYMPH % 12.6 % (22.0-35.0); MEAN CORPUSCULAR HEMOGLOBIN 30.1 pg (25.0-35.0); MEAN CORPUSCULAR HGB CONC 32.7 g/dl (31.0-37.0); MEAN PLATELET VOLUME 9.8 fl (7.0-11.0); MONO % 11.5 % (1.0-6.0); RED CELL DISTRIBUTION WIDTH 15.2 % (11.5-14.5); WHITE BLOOD COUNT 8.4 10^3/ul (4.5-11.0)
[2017-01-05 07:54] LABS: ALB/GLOB RATIO 1.1 (1.1-1.8); ALKALINE PHOSPHATASE 42 U/L (38-126); ALT/SGPT 33 U/L (7-56); AST/SGOT 32 U/L (17-59); BILIRUBIN,TOTAL 0.6 mg/dL (0.2-1.3); BLOOD UREA NITROGEN 10 mg/dL (7-21); CALCIUM 8.3 mg/dL (8.4-10.5); CARBON DIOXIDE 26 mmol/L (21-33); CHLORIDE 111 mmol/L (98-107); GFR AFRICAN-AMERICAN > 60; GLUCOSE,RANDOM 78 mg/dL (70-110); MAGNESIUM 1.9 mg/dL (1.7-2.2); POTASSIUM 3.4 mmol/L (3.6-5.0); SODIUM 146 mmol/L (132-148); TOTAL PROTEIN 5.6 g/dL (5.8-8.3)
[2017-01-05] MEDS ORDERED: Potassium Phosphate 15 MMOLE in Dextrose 5% In Water 250 ML IVPB ONE (08:12)
[2017-01-05] MEDS: Dexmedetomidine HCl 4mcg/ml 400 MCG/100 ML BOTTLE IV PRN ×2 (08:14→12:00)
--- NOTE | 2017-01-05 08:46 | CP.CCUPN ---
<Will Bojorquez - Last Filed: 01/05/17 09:55> CCU Subjective - Physician Review Subjective (Free Text): Critical care progress note - Tanja Bojorquez PGY2 Patient seen and examined at bedside this morning. Currently intubated and sedated on propofol drip. No acute overnight events or new complaints reported. Will ween off propofol drip to precedex drip and attempt PS trial this morning. ROS limited due to patient status. CCU Objective - Vital Signs / Intake & Output Vital Signs (Last 4 hours): Vital Signs Temp Pulse Resp BP Pulse Ox 01/05/17 08:10 98.4 F 80 100 01/05/17 08:00 98.4 F 73 14 143/79 98 01/05/17 07:59 98.4 F 70 151/88 H 97 01/05/17 07:50 98.4 F 74 100 01/05/17 07:40 98.4 F 69 100 01/05/17 07:30 98.4 F 75 99 01/05/17 07:20 98.4 F 72 100 01/05/17 07:10 98.6 F 74 98 01/05/17 07:00 98.8 F 77 97 01/05/17 06:50 99.0 F 76 98 01/05/17 06:40 99.0 F 76 98 01/05/17 06:30 98.8 F 80 98 01/05/17 06:20 98.8 F 75 100 01/05/17 06:10 98.6 F 96 H 100 01/05/17 06:00 98.6 F 78 100 01/05/17 05:50 98.4 F 80 100 01/05/17 05:40 98.2 F 80 100 01/05/17 05:30 98.2 F 86 100 01/05/17 05:20 98.1 F 80 100 01/05/17 05:10 98.1 F 74 100 01/05/17 05:00 97.9 F 75 100 01/05/17 04:50 97.9 F 74 100 Intake and Output (Last 8hrs): Intake & Output 01/04/17 01/05/17 01/05/17 22:59 06:59 14:59 Intake Total 2650 2671 Output Total 1775 700 Balance 875 1971 Intake: IV 2650 2671 Left Forearm 571 Left Hand 1800 Right Forearm 2350 0 Oral 0 Output: Urine 1775 700 Urethral (Ontiveros) 1775 700 Other: # Bowel Movements 0 - Physical Exam Head: Positive for: Atraumatic, Normocephalic. Negative for: Tenderness, Contusion, Swelling, Ecchymosis, Abrasion, Laceration Mouth: Positive for: Moist Mucous Membranes Respiratory/Chest: Positive for: Clear to Auscultation, Good Air Exchange. Negative for: Respiratory Distress, Accessory Muscle Use, Wheezes, Rales, Rhonchi Cardiovascular: Positive for: Regular Rate and Rhythm, Normal S1, S2. Negative for: Murmurs, Rub, Gallop Abdomen: Positive for: Normal Bowel Sounds. Negative for: Tenderness, Distention, Peritoneal Signs, Rebound, Guarding Back: Positive for: Normal Inspection Upper Extremity: Positive for: Normal Inspection, Other (left forearm with linear lacerations). Negative for: Cyanosis, Edema Lower Extremity: Positive for: Normal Inspection. Negative for: Edema Neurological: Positive for: Other (intuated and sedated; arousable however does not follow commands) Skin: Positive for: Warm, Dry, Normal Color. Negative for: Rashes - Medications Active Medications: Active Medications Generic Name Dose Route Start Last Admin Trade Name Freq PRN Reason Stop Dose Admin Propofol 1,000 mg in 100 mls @ 3.048 mls/hr 01/03/17 15:29 01/05/17 05:23 Diprivan IV 50 mcg/kg/min .Q24H PRN 30.482 mls/hr TITRATE PER MD ORDER Administration Protocol 5 MCG/KG/MIN Sodium Chloride 1,000 mls @ 150 mls/hr 01/04/17 09:23 01/05/17 01:16 Sodium Chloride 0.9% IV 150 mls/hr .[id number] JOANNA Administration Dexmedetomidine HCl 400 mcg in 100 mls @ 5.08 mls/hr 01/05/17 07:05 01/05/17 08:14 Precedex 4 Mcg/Ml (100 Ml) IV 0.2 mcg/kg/hr .[id number] PRN 5.08 mls/hr Anxiety Administration Protocol 0.2 MCG/KG/HR Potassium Phosphate 15 mmole/ 255 mls @ 42.5 mls/hr 01/05/17 08:12 Dextrose IVPB 01/05/17 14:11 ONCE ONE Lorazepam 2 mg 01/03/17 15:12 01/05/17 05:24 Ativan IVP 2 mg Q4H PRN Administration Anxiety Protocol Pantoprazole Sodium 40 mg 01/03/17 10:00 01/04/17 09:58 Protonix Inj IVP 40 mg DAILY JOANNA Administration - Patient Studies Lab Studies: Microbiology Studies 01/03/17 06:30 Blood Culture - Preliminary Blood NO GROWTH AFTER 48 HOURS 01/03/17 06:00 Blood Culture - Preliminary Blood NO GROWTH AFTER 48 HOURS 01/03/17 02:30 MRSA Culture (Admit) - Final Naris MRSA NOT DETECTED 01/03/17 07:34 Urine Culture - Final Urine,Ontiveros No Growth (<1,000 CFU/ML) Lab Studies 01/05/17 01/05/17 Range/Units 06:00 06:00 WBC 8.4 (4.5-11.0) 10^3/ul RBC 4.49 (3.5-6.1) 10^6/uL Hgb 13.5 L (14.0-18.0) g/dL Hct 41.3 L (42.0-52.0) % MCV 92.0 (80.0-105.0) fl MCH 30.1 (25.0-35.0) pg MCHC 32.7 (31.0-37.0) g/dl RDW 15.2 H (11.5-14.5) % Plt Count 134 (120.0-450.0) 10^3/uL MPV 9.8 (7.0-11.0) fl Gran % 74.7 H (50.0-68.0) % Lymph % (Auto) 12.6 L (22.0-35.0) % [place] % (Auto) 11.5 H (1.0-6.0) % Eos % (Auto) 1.1 L (1.5-5.0) % Baso % (Auto) 0.1 (0.0-3.0) % Gran # 6.31 (1.4-6.5) Lymph # 1.1 L (1.2-3.4) [place] # 1.0 H (0.1-0.6) Eos # 0.1 (0.0-0.7) Baso # 0.01 (0.0-2.0) K/mm3 Sodium 146 (132-148) mmol/L Potassium 3.4 L (3.6-5.0) mmol/L Chloride 111 H (98-107) mmol/L Carbon Dioxide 26 (21-33) mmol/L Anion Gap 12 (10-20) BUN 10 (7-21) mg/dL Creatinine 1.1 (0.8-1.5) mg/dl Est GFR ( Amer) > 60 Est GFR (Non-Af Amer) > 60 Random Glucose 78 (70-110) mg/dL Calcium 8.3 L (8.4-10.5) mg/dL Phosphorus 2.0 L (2.5-4.5) mg/dL Magnesium 1.9 (1.7-2.2) mg/dL Total Bilirubin 0.6 (0.2-1.3) mg/dL AST 32 (17-59) U/L ALT 33 (7-56) U/L Alkaline Phosphatase 42 (38-126) U/L Total Protein 5.6 L (5.8-8.3) g/dL Albumin 2.9 L (3.0-4.8) g/dL Globulin 2.7 gm/dL Albumin/Globulin Ratio 1.1 (1.1-1.8) Laboratory Results - last 24 hr 01/05/17 01/05/17 06:00 06:00 WBC 8.4 RBC 4.49 Hgb 13.5 L Hct 41.3 L MCV 92.0 MCH 30.1 MCHC 32.7 RDW 15.2 H Plt Count 134 MPV 9.8 Gran % 74.7 H Lymph % (Auto) 12.6 L [place] % (Auto) 11.5 H Eos % (Auto) 1.1 L Baso % (Auto) 0.1 Gran # 6.31 Lymph # 1.1 L [place] # 1.0 H Eos # 0.1 Baso # 0.01 Sodium 146 Potassium 3.4 L Chloride 111 H Carbon Dioxide 26 Anion Gap 12 BUN 10 Creatinine 1.1 Est GFR ( Amer) > 60 Est GFR (Non-Af Amer) > 60 Random Glucose 78 Calcium 8.3 L Phosphorus 2.0 L Magnesium 1.9 Total Bilirubin 0.6 AST 32 ALT 33 Alkaline Phosphatase 42 Total Protein 5.6 L Albumin 2.9 L Globulin 2.7 Albumin/Globulin Ratio 1.1 Fingerstick Blood Sugar Results: 105 Critical Care Progress Note - Nutrition Nutrition: Nutrition Category Date Time Status NPO Diet [DIET] Diets 01/02/17 Dinner Ordered Assessment/Plan - Assessment and Plan (Free Text) Plan: 36yo male with history of polysubstance abuse and suicidal ideation presents with altered mental status post ingestion of benzos, cocaine, THC, opiates, barbituates and tylenol. Intubated for airway protection. Neuro: -AMS likely secondary to polysubstance ingestion; Utox notable for cocaine, benzos, THC, opiates and barbituates -Intubated and sedated on precedex drip; propofol weened off -Arousable however does not follow commands -CT Head reviewed; no acute intracranial abnormalities (see full report) -NAC for tylenol toxicity completed -EEG pending -Neuro following - Dr. Perez -Poison control notified Cardio: -Hemodynamically stable at this time; Maintain MAP > 65 -EKG reviewed; no acute ST-T wave changes; no qtc prolongation Pulm: -Presently on PRVC 550/14/5/40%; will attempt to ween off the vent should his mental status improve -Maintain SaO2 > 90% -HOB > 30' GI: -Protonix for GI prophylaxis -Will start feeds should he be unable to be weened off the vent Endo: -Maintain euglycemia with blood sugar between 140-180 Nephro: -Monitor and replete electrolytes as indicated -Strict I's and O's -Continue with LR @ 150cc/hr Heme: -DVT prophylaxis with heparin ID: -afebrile, no leukocytosis -procalcitonin negative -Cultures negative -No source of infection at this time Patient seen and case discussed/reviewed with attending, Dr. Ayala <Ari Ayala - Last Filed: 01/05/17 11:23> CCU Objective - Vital Signs / Intake & Output Vital Signs (Last 4 hours): Vital Signs Temp Pulse Resp BP Pulse Ox 01/05/17 08:10 98.4 F 80 100 01/05/17 08:00 98.4 F 73 14 143/79 98 01/05/17 07:59 98.4 F 70 151/88 H 97 01/05/17 07:50 98.4 F 74 100 01/05/17 07:40 98.4 F 69 100 01/05/17 07:30 98.4 F 75 99 01/05/17 07:20 98.4 F 72 100 01/05/17 07:10 98.6 F 74 98 Intake and Output (Last 8hrs): Intake & Output 01/04/17 01/05/17 01/05/17 22:59 06:59 14:59 Intake Total 2650 2671 Output Total 1775 700 Balance 875 1971 Intake: IV 2650 2671 Left Forearm 571 Left Hand 1800 Right Forearm 2350 0 Oral 0 Output: Urine 1775 700 Urethral (Ontiveros) 1775 700 Other: # Bowel Movements 0 - Medications Active Medications: Active Medications Generic Name Dose Route Start Last Admin Trade Name Freq PRN Reason Stop Dose Admin Heparin Sodium (Porcine) 5,000 units 01/05/17 09:30 01/05/17 09:51 Heparin SC 5,000 units Q8 JOANNA Administration Protocol Propofol 1,000 mg in 100 mls @ 3.048 mls/hr 01/03/17 15:29 01/05/17 05:23 Diprivan IV 50 mcg/kg/min .Q24H PRN 30.482 mls/hr TITRATE PER MD ORDER Administration Protocol 5 MCG/KG/MIN Dexmedetomidine HCl 400 mcg in 100 mls @ 5.08 mls/hr 01/05/17 07:05 01/05/17 08:14 Precedex 4 Mcg/Ml (100 Ml) IV 0.2 mcg/kg/hr .[id number] PRN 5.08 mls/hr Anxiety Administration Protocol 0.2 MCG/KG/HR Potassium Phosphate 15 mmole/ 255 mls @ 42.5 mls/hr 01/05/17 08:12 01/05/17 08:59 Dextrose IVPB 01/05/17 14:11 42.5 mls/hr ONCE ONE Administration Lactated Ringer's 1,000 mls @ 100 mls/hr 01/05/17 09:30 01/05/17 09:51 Lactated Ringer's IV 100 mls/hr .Q10H JOANNA Administration Lorazepam 2 mg 01/03/17 15:12 01/05/17 05:24 Ativan IVP 2 mg Q4H PRN Administration Anxiety Protocol Pantoprazole Sodium 40 mg 01/03/17 10:00 01/05/17 09:03 Protonix Inj IVP 40 mg DAILY JOANNA Administration - Patient Studies Lab Studies: Microbiology Studies 01/03/17 06:30 Blood Culture - Preliminary Blood NO GROWTH AFTER 48 HOURS 01/03/17 06:00 Blood Culture - Preliminary Blood NO GROWTH AFTER 48 HOURS 01/03/17 02:30 MRSA Culture (Admit) - Final Naris MRSA NOT DETECTED 01/03/17 07:34 Urine Culture - Final Urine,Ontiveros No Growth (<1,000 CFU/ML) Lab Studies 01/05/17 01/05/17 01/05/17 Range/Units 06:35 06:00 06:00 WBC 8.4 (4.5-11.0) 10^3/ul RBC 4.49 (3.5-6.1) 10^6/uL Hgb 13.5 L (14.0-18.0) g/dL Hct 41.3 L (42.0-52.0) % MCV 92.0 (80.0-105.0) fl MCH 30.1 (25.0-35.0) pg MCHC 32.7 (31.0-37.0) g/dl RDW 15.2 H (11.5-14.5) % Plt Count 134 (120.0-450.0) 10^3/uL MPV 9.8 (7.0-11.0) fl Gran % 74.7 H (50.0-68.0) % Lymph % (Auto) 12.6 L (22.0-35.0) % [place] % (Auto) 11.5 H (1.0-6.0) % Eos % (Auto) 1.1 L (1.5-5.0) % Baso % (Auto) 0.1 (0.0-3.0) % Gran # 6.31 (1.4-6.5) Lymph # 1.1 L (1.2-3.4) [place] # 1.0 H (0.1-0.6) Eos # 0.1 (0.0-0.7) Baso # 0.01 (0.0-2.0) K/mm3 pCO2 36 (35-45) mm/Hg pO2 129.0 H (80-100) mm/Hg HCO3 24.5 (21-28) mmol/L ABG pH 7.44 (7.35-7.45) ABG Total CO2 25.6 (22-28) mmol.L ABG O2 Saturation 99.1 H (95-98) % ABG Base Excess 0.6 (-2.0-3.0) mmol/L ABG Potassium 3.2 L (3.6-5.2) mmol/L Glucose 83 (75-110) mg/dl Lactate 0.5 L (0.7-2.1) mmol/L FiO2 40.0 % Sodium 147.0 146 (132-148) mmol/L Potassium 3.4 L (3.6-5.0) mmol/L Chloride 116.0 H 111 H (98-107) mmol/L Carbon Dioxide 26 (21-33) mmol/L Anion Gap 12 (10-20) BUN 10 (7-21) mg/dL Creatinine 1.1 (0.8-1.5) mg/dl Est GFR ( Amer) > 60 Est GFR (Non-Af Amer) > 60 Random Glucose 78 (70-110) mg/dL Calcium 8.3 L (8.4-10.5) mg/dL Phosphorus 2.0 L (2.5-4.5) mg/dL Magnesium 1.9 (1.7-2.2) mg/dL Total Bilirubin 0.6 (0.2-1.3) mg/dL AST 32 (17-59) U/L ALT 33 (7-56) U/L Alkaline Phosphatase 42 (38-126) U/L Total Protein 5.6 L (5.8-8.3) g/dL Albumin 2.9 L (3.0-4.8) g/dL Globulin 2.7 gm/dL Albumin/Globulin Ratio 1.1 (1.1-1.8) Arterial Blood Potassium 3.2 L (3.6-5.2) mmol/L Laboratory Results - last 24 hr 01/05/17 01/05/17 01/05/17 06:00 06:00 06:35 WBC 8.4 RBC 4.49 Hgb 13.5 L Hct 41.3 L MCV 92.0 MCH 30.1 MCHC 32.7 RDW 15.2 H Plt Count 134 MPV 9.8 Gran % 74.7 H Lymph % (Auto) 12.6 L [place] % (Auto) 11.5 H Eos % (Auto) 1.1 L Baso % (Auto) 0.1 Gran # 6.31 Lymph # 1.1 L [place] # 1.0 H Eos # 0.1 Baso # 0.01 pCO2 36 pO2 129.0 H HCO3 24.5 ABG pH 7.44 ABG Total CO2 25.6 ABG O2 Saturation 99.1 H ABG Base Excess 0.6 ABG Potassium 3.2 L Glucose 83 Lactate 0.5 L FiO2 40.0 Sodium 146 147.0 Potassium 3.4 L Chloride 111 H 116.0 H Carbon Dioxide 26 Anion Gap 12 BUN 10 Creatinine 1.1 Est GFR ( Amer) > 60 Est GFR (Non-Af Amer) > 60 Random Glucose 78 Calcium 8.3 L Phosphorus 2.0 L Magnesium 1.9 Total Bilirubin 0.6 AST 32 ALT 33 Alkaline Phosphatase 42 Total Protein 5.6 L Albumin 2.9 L Globulin 2.7 Albumin/Globulin Ratio 1.1 Arterial Blood Potassium 3.2 L Critical Care Progress Note - Nutrition Nutrition: Nutrition Category Date Time Status NPO Diet [DIET] Diets 01/02/17 Dinner Ordered Assessment/Plan - Assessment and Plan (Free Text) Plan: 11:18AM Patient seen and examined, agree with residents note with following additions/ exceptions: Pt is 36yo male with PMhx of polysubstance abuse, admitted with drug over dose with polysubstance, including Tylenol, in an ?apparent suicide attempt. Pt finished NAC drip, currently afebrile, HD stable, comfortable, tolerated CPAP trials, was following commands, extubated to 2LNC, sat 99% doing well, no resp distress. On labs INR wnl, Tb wnl, CBC wnl. No evidence of liver failure. Stable. Resp Failure Polysubstance drug overdose AMS, resolved Tylenol Overdose Recommend: - cont with 2LNC, as needed - Duonebs PRN - BP control - IV hydration - Speech swallow eval - FS control - Psych evauluation - social work involvement - GI ppx - DVT ppx - Stable
--- NOTE | 2017-01-05 09:13 | RAD ---
HISTORY: interval changes COMPARISON: 01/04/2017 FINDINGS: LUNGS: No pulmonary infiltrate. Stable oblique linear opacity at right base, likely atelectasis. PLEURA: Small left pleural effusion. No right pleural effusion. No pneumothorax. CARDIOVASCULAR: Normal heart size. ET tube and NG tube are grossly unchanged in position. OSSEOUS STRUCTURES: No significant abnormalities. VISUALIZED UPPER ABDOMEN: Normal. OTHER FINDINGS: Small left pleural effusion. No acute infiltrate. ET tube and NG tube unchanged. IMPRESSION: No active disease.
[2017-01-05] MEDS: Lactated Ringer's 1,000 ML IV SCH ×2 (09:51→20:05)
--- NOTE | 2017-01-05 13:52 | CP.PCM.PN ---
<Shira Velasquez - Last Filed: 01/05/17 19:46> Subjective - Date & Time of Evaluation Date of Evaluation: 01/05/17 Time of Evaluation: 09:00 - Subjective Subjective: PGY-2 Neurology progress note for Dr. Perez's service Patient seen and examined at bedside in ICU. Patient is sedated on propofol due to intubation for airway protection. Responds to verbal and painful stimuli. Objective - Vital Signs/Intake and Output Vital Signs (last 24 hours): Temp Pulse Resp BP Pulse Ox 98.4 F 72 13 149/96 H 96 01/05/17 11:10 01/05/17 11:10 01/05/17 11:10 01/05/17 11:00 01/05/17 11:10 Intake and Output: 01/05/17 01/05/17 06:59 18:59 Intake Total 2871 100 Output Total 700 Balance 2171 100 - Medications Medications: Current Medications Heparin Sodium (Porcine) (Heparin) 5,000 units SC Q8 JOANNA PRN Reason: Protocol Last Admin: 01/05/17 09:51 Dose: 5,000 units Propofol (Diprivan) 1,000 mg in 100 mls @ 3.048 mls/hr IV .Q24H PRN; Protocol; 5 MCG/KG/MIN PRN Reason: TITRATE PER MD ORDER Last Admin: 01/05/17 05:23 Dose: 50 mcg/kg/min, 30.482 mls/hr Dexmedetomidine HCl (Precedex 4 Mcg/Ml (100 Ml)) 400 mcg in 100 mls @ 5.08 mls/ hr IV .[id number] PRN; Protocol; 0.2 MCG/KG/HR PRN Reason: Anxiety Last Admin: 01/05/17 12:00 Dose: 0.2 mcg/kg/hr, 5.08 mls/hr Potassium Phosphate 15 mmole/ (Dextrose) 255 mls @ 42.5 mls/hr IVPB ONCE ONE Stop: 01/05/17 14:11 Last Admin: 01/05/17 08:59 Dose: 42.5 mls/hr Lactated Ringer's (Lactated Ringer's) 1,000 mls @ 100 mls/hr IV .Q10H JOANNA Last Admin: 01/05/17 09:51 Dose: 100 mls/hr Lorazepam (Ativan) 2 mg IVP Q4H PRN; Protocol PRN Reason: Anxiety Last Admin: 01/05/17 05:24 Dose: 2 mg Pantoprazole Sodium (Protonix Inj) 40 mg IVP DAILY JOANNA Last Admin: 01/05/17 09:03 Dose: 40 mg - Labs Labs: 01/05/17 06:00 01/05/17 06:00 PT 14.8 SECONDS (9.4-12.5) H 01/04/17 06:00 INR 1.34 (0.93-1.08) H 01/04/17 06:00 APTT 31.1 Seconds (25.1-36.5) 01/04/17 06:00 - Constitutional Appears: No Acute Distress - Head Exam Head Exam: ATRAUMATIC, NORMAL INSPECTION, NORMOCEPHALIC - Eye Exam Eye Exam: Normal appearance - ENT Exam Additional comments: intubated - Respiratory Exam Respiratory Exam: Clear to Ausculation Bilateral, NORMAL BREATHING PATTERN. absent: Rales, Rhonchi, Respiratory Distress - Cardiovascular Exam Cardiovascular Exam: REGULAR RHYTHM - Neurological Exam Additional comments: sedated - Skin Skin Exam: Dry, Intact, Normal Color, Warm Assessment and Plan - Assessment and Plan (Free Text) Assessment: 36 yo male with PMH of IV drug abuse, depression, anxiety presented to ED with AMS due to toxic metabolic and poly substance abuse. 1. AMS - patient was extubated in the afternoon, alert and oriented - CT head is negative - urine tox positive for cocaine, benzo, majiuana, opiates, barbiturates and acetaminophen - acetaminophen levels downtrending - EEG if patient is not more responsive - continue medical management per ICY team Case reviewed and discussed with attending, Dr. Perez <Cornelio Perez - Last Filed: 01/06/17 10:34> Objective - Vital Signs/Intake and Output Vital Signs (last 24 hours): Temp Pulse Resp BP Pulse Ox 93.2 F L 78 16 156/86 H 100 01/06/17 09:37 01/06/17 10:05 01/06/17 10:02 01/06/17 09:30 01/06/17 09:24 Intake and Output: 01/06/17 01/06/17 06:59 18:59 Intake Total 3612 879 Output Total 2200 325 Balance 1412 554 - Medications Medications: Current Medications Heparin Sodium (Porcine) (Heparin) 5,000 units SC Q8 JOANNA PRN Reason: Protocol Last Admin: 01/06/17 05:33 Dose: 5,000 units Dexmedetomidine HCl (Precedex 4 Mcg/Ml (100 Ml)) 400 mcg in 100 mls @ 5.08 mls/ hr IV .[id number] PRN; Protocol; 0.2 MCG/KG/HR PRN Reason: Anxiety Last Titration: 01/06/17 07:25 Dose: 0 mcg/kg/hr, 0 mls/hr Lorazepam (Ativan) 2 mg IVP Q4H PRN; Protocol PRN Reason: Anxiety Last Admin: 01/06/17 04:35 Dose: 2 mg Ondansetron HCl (Zofran Inj) 4 mg IVP Q6H PRN PRN Reason: Nausea/Vomiting Last Admin: 01/05/17 17:50 Dose: 4 mg Pantoprazole Sodium (Protonix Inj) 40 mg IVP DAILY [facility] Last Admin: 01/06/17 09:22 Dose: 40 mg - Labs Labs: 01/06/17 05:20 01/06/17 05:20 PT 14.8 SECONDS (9.4-12.5) H 01/04/17 06:00 INR 1.34 (0.93-1.08) H 01/04/17 06:00 APTT 31.1 Seconds (25.1-36.5) 01/04/17 06:00 Attending/Attestation - Attestation I have personally seen and examined this patient.: Yes I have fully participated in the care of the patient.: Yes I have reviewed all pertinent clinical information, including history, physical exam and plan: Yes
--- NOTE | 2017-01-05 13:59 | CP.PCM.PN ---
<Milton Rosales - Last Filed: 01/05/17 16:37> Subjective - Date & Time of Evaluation Date of Evaluation: 01/05/17 Time of Evaluation: 13:55 - Subjective Subjective: Medicine progress note for Dr. Maximo Rosales DO PGY - 1, Pt s/e bedside. History limited 2/2 mental status, but patient does remember OD 'ing on 'drugs.' Patient has no recollection of his dying. Per nursing, patient would "come to" every couple of hours overnight and sit upright in bed, more propofol was given to keep patient sedated. Family now at bedside, history obtained from pt's brother and daughter. Pt apparently has a history of bipolar disorder. His PMD is Dr. Bin Valentino and he obtains pain medications from Dr. Lazo. Patient is on the following medications per pharmacy: Zoloft 50 qD Xanax 2 mg PRN Clonazapam 2 mg TID Seboxone 8 mg BID [id number] mg qD. Will continue to elicit history tomorrow. Pt has no complaints except for a sore throat, he was informed by me that this is due to the intubation. Objective - Vital Signs/Intake and Output Vital Signs (last 24 hours): Temp Pulse Resp BP Pulse Ox 98.4 F 72 13 149/96 H 96 01/05/17 11:10 01/05/17 11:10 01/05/17 11:10 01/05/17 11:00 01/05/17 11:10 Intake and Output: 01/05/17 01/05/17 06:59 18:59 Intake Total 2871 100 Output Total 700 Balance 2171 100 - Medications Medications: Current Medications Heparin Sodium (Porcine) (Heparin) 5,000 units SC Q8 JOANNA PRN Reason: Protocol Last Admin: 01/05/17 09:51 Dose: 5,000 units Propofol (Diprivan) 1,000 mg in 100 mls @ 3.048 mls/hr IV .Q24H PRN; Protocol; 5 MCG/KG/MIN PRN Reason: TITRATE PER MD ORDER Last Admin: 01/05/17 05:23 Dose: 50 mcg/kg/min, 30.482 mls/hr Dexmedetomidine HCl (Precedex 4 Mcg/Ml (100 Ml)) 400 mcg in 100 mls @ 5.08 mls/ hr IV .[id number] PRN; Protocol; 0.2 MCG/KG/HR PRN Reason: Anxiety Last Admin: 01/05/17 12:00 Dose: 0.2 mcg/kg/hr, 5.08 mls/hr Potassium Phosphate 15 mmole/ (Dextrose) 255 mls @ 42.5 mls/hr IVPB ONCE ONE Stop: 01/05/17 14:11 Last Admin: 01/05/17 08:59 Dose: 42.5 mls/hr Lactated Ringer's (Lactated Ringer's) 1,000 mls @ 100 mls/hr IV .Q10H JOANNA Last Admin: 01/05/17 09:51 Dose: 100 mls/hr Lorazepam (Ativan) 2 mg IVP Q4H PRN; Protocol PRN Reason: Anxiety Last Admin: 01/05/17 05:24 Dose: 2 mg Pantoprazole Sodium (Protonix Inj) 40 mg IVP DAILY JOANNA Last Admin: 01/05/17 09:03 Dose: 40 mg - Labs Labs: 01/05/17 06:00 01/05/17 06:00 PT 14.8 SECONDS (9.4-12.5) H 01/04/17 06:00 INR 1.34 (0.93-1.08) H 01/04/17 06:00 APTT 31.1 Seconds (25.1-36.5) 01/04/17 06:00 - Additional Findings Additional findings: Phys Exam: VS as below Const'l: +Pt extubated, still altered Head/Neck: +Pt has coronal sutures on the right side of his head; neck supple , no jvd, trachea midline, carotid midline, no cervical/head mass Eyes: afshin, nonicteric sclera, eom intact ENT: auditory acuity grossly intact, throat not congested, no nasal deformity Cardio: rrr, no m/r/g, no carotid bruit, nml s1, s2 Pulm: no accessory muscle use, equal nml breath sounds bilaterally, ctab Abd: s/nt/nd, nbs x 4 q, no palpable masses Derm: no rashes, no ulcers, no lesions Extr: no edema, no cyanosis, no calf tenderness, no lesions, no varicosities Neuro: cn II-XII grossly intact, ue and le 5/5 muscle strength bilaterally, no los ue, le bilaterally and core Assessment and Plan - Assessment and Plan (Free Text) Assessment: A/P 36 y/o M with past medical history of IV drug abuse who presents with AMS secondary to multisubstance overdose in the setting of respiratory failure. UDS positive for cocaine, benzo, marijuana, opiate, barbiturate, tylenol. No EKG changes at this time with tylenol level decreasing. Recent extubation AMS, likely 2/2 substance abuse - Pt extubated - Neuro check q4h, Aspiration precaution, Head of bed elevated 30 degrees, Seizure precaution - LR 100 mls/hr - Precedex drip .2 mcg/kg/hr - 1 on 1 Isolation - Aspiration, Seizure precautions; Vital signs q4, HOB 30 degrees Elevated Bilirubin - Resolved - T. Bili: 3.6 initially, decreased to 1.1 - Hep panel: negative Substance abuse (IVDA) - HIV: negative - Psych c/s: Dr. Toro PPX - Protonix/SCDs Dispo: Pt on 1:1. <Rolanda Marsh - Last Filed: 01/06/17 15:53> Objective - Vital Signs/Intake and Output Vital Signs (last 24 hours): Temp Pulse Resp BP Pulse Ox 98.6 F 94 H 19 149/96 H 97 01/06/17 12:00 01/06/17 14:52 01/06/17 14:52 01/06/17 14:30 01/06/17 12:00 Intake and Output: 01/06/17 01/06/17 06:59 18:59 Intake Total 3612 879 Output Total 2200 1075 Balance 1412 -196 - Medications Medications: Current Medications Duloxetine HCl (Cymbalta) 20 mg PO BID JOANNA Last Admin: 01/06/17 12:57 Dose: 20 mg Heparin Sodium (Porcine) (Heparin) 5,000 units SC Q8 JOANNA PRN Reason: Protocol Last Admin: 01/06/17 13:24 Dose: Not Given Dexmedetomidine HCl (Precedex 4 Mcg/Ml (100 Ml)) 400 mcg in 100 mls @ 5.08 mls/ hr IV .[id number] PRN; Protocol; 0.2 MCG/KG/HR PRN Reason: Anxiety Last Titration: 01/06/17 07:25 Dose: 0 mcg/kg/hr, 0 mls/hr Lorazepam (Ativan) 2 mg IVP Q4H PRN; Protocol PRN Reason: Anxiety Last Admin: 01/06/17 11:04 Dose: 2 mg Lorazepam (Ativan) 2 mg IVP QID JOANNA PRN Reason: Protocol Last Admin: 01/06/17 13:25 Dose: Not Given Ondansetron HCl (Zofran Inj) 4 mg IVP Q6H PRN PRN Reason: Nausea/Vomiting Last Admin: 01/05/17 17:50 Dose: 4 mg Pantoprazole Sodium (Protonix Inj) 40 mg IVP DAILY JOANNA Last Admin: 01/06/17 09:22 Dose: 40 mg - Labs Labs: 01/06/17 05:20 01/06/17 05:20 PT 14.8 SECONDS (9.4-12.5) H 01/04/17 06:00 INR 1.34 (0.93-1.08) H 01/04/17 06:00 APTT 31.1 Seconds (25.1-36.5) 01/04/17 06:00 Attending/Attestation - Attestation I have personally seen and examined this patient.: Yes I have fully participated in the care of the patient.: Yes I have reviewed all pertinent clinical information, including history, physical exam and plan: Yes Notes (Text): I have seen and examined the patient at bedside. Agree with the above note with the following additions/ exceptions: Briefly this is 36 year old male with history of IVDA, Polysubstance abuse (opioids, cocaine, barbiturates, marijuana ) who was brought for evaluation of AMS. He got extubated this morning. He appears somnolent. Tylenol level was really high upon admission and now its < 10. He was given narcan and acetylcysteine. Poison control on the case. Patients brother is at the bedside. Continue ICU management. Will closely monitor the patient. HIV and hep panel negative. As per team, suicide note was found on the scene. There are superficial cut suarez on both wrists. Psych consult pending. Start 1:1. Patient will not be allowed to leave AMA unless cleared by psych. Upon discharge patient will follow up with PMD of choice. Dr Rolanda Marsh
[2017-01-06 05:39] LABS: BASO # 0.01 K/mm3 (0.0-2.0); BASO % 0.1 % (0.0-3.0); EOS % 0.4 % (1.5-5.0); GRAN # 8.14 (1.4-6.5); GRAN % 81.6 % (50.0-68.0); LYMPH % 9.8 % (22.0-35.0); MEAN CORPUSCULAR HEMOGLOBIN 31.3 pg (25.0-35.0); MEAN CORPUSCULAR HGB CONC 34.7 g/dl (31.0-37.0); MEAN PLATELET VOLUME 9.9 fl (7.0-11.0); MONO # 0.8 (0.1-0.6); MONO % 8.1 % (1.0-6.0); RED CELL DISTRIBUTION WIDTH 14.3 % (11.5-14.5)
[2017-01-06 05:47] LABS: ALKALINE PHOSPHATASE 41 U/L (38-126); ALT/SGPT 34 U/L (7-56); AST/SGOT 31 U/L (17-59); BILIRUBIN,TOTAL 0.9 mg/dL (0.2-1.3); BLOOD UREA NITROGEN 9 mg/dL (7-21); CALCIUM 8.2 mg/dL (8.4-10.5); CARBON DIOXIDE 29 mmol/L (21-33); CHLORIDE 110 mmol/L (98-107); GFR AFRICAN-AMERICAN > 60; GLUCOSE,RANDOM 100 mg/dL (70-110); POTASSIUM 3.6 mmol/L (3.6-5.0); SODIUM 145 mmol/L (132-148); TOTAL PROTEIN 5.6 g/dL (5.8-8.3)
[2017-01-06] MEDS: Lactated Ringer's 1,000 ML IV SCH (05:49)
[2017-01-06 06:14] LABS: ALB/GLOB RATIO 1.1 (1.1-1.8)
--- NOTE | 2017-01-06 10:54 | CP.CCUPN ---
<Will Bojorquez - Last Filed: 01/06/17 10:43> CCU Subjective - Physician Review Subjective (Free Text): Critical care progress note - Tanja Bojorquez PGY2 Patient seen and examined at bedside this morning. No acute overnight events or new complaints reported. Patient asking regarding the status of his girlfriend/ to which answer was deferred. Discussed case with psychiatry this morning. Additionally, 2 detectives from [facility] police department visited in the morning to ensure patient was safe. Requested in conjunction with nursing staff that police return at a later time for any further conversations. CCU Objective - Vital Signs / Intake & Output Vital Signs (Last 4 hours): Vital Signs Temp Pulse Resp BP Pulse Ox 01/06/17 10:05 78 01/06/17 10:03 84 01/06/17 10:02 75 16 01/06/17 10:01 84 23 01/06/17 10:00 78 27 H 01/06/17 09:59 62 20 01/06/17 09:58 74 13 01/06/17 09:57 81 11 L 01/06/17 09:56 80 17 01/06/17 09:55 80 12 01/06/17 09:54 79 15 01/06/17 09:53 82 13 01/06/17 09:52 80 14 01/06/17 09:51 82 12 01/06/17 09:50 74 13 01/06/17 09:49 79 12 01/06/17 09:48 79 9 L 01/06/17 09:47 74 13 01/06/17 09:46 77 10 L 01/06/17 09:45 77 16 01/06/17 09:44 80 17 01/06/17 09:43 84 23 01/06/17 09:42 70 11 L 01/06/17 09:41 70 14 01/06/17 09:40 82 39 H 01/06/17 09:37 93.2 F L 01/06/17 09:35 96.8 F L 77 01/06/17 09:34 96.8 F L 80 01/06/17 09:33 96.8 F L 83 19 01/06/17 09:32 96.8 F L 75 22 01/06/17 09:31 96.8 F L 77 15 01/06/17 09:30 156/86 H 01/06/17 09:29 96.8 F L 76 01/06/17 09:28 96.8 F L 85 01/06/17 09:27 96.8 F L 76 10 L 01/06/17 09:26 96.8 F L 78 19 01/06/17 09:25 97.0 F L 79 29 H 01/06/17 09:24 97.0 F L 81 100 01/06/17 09:23 97.0 F L 75 100 01/06/17 09:20 97.0 F L 76 11 L 98 01/06/17 09:18 97.2 F L 80 96 01/06/17 09:17 97.2 F L 82 76 L 01/06/17 09:10 97.2 F L 78 14 100 01/06/17 09:04 97.2 F L 96 H 100 01/06/17 09:01 97.2 F L 90 29 H 189/101 H 100 01/06/17 09:00 97.2 F L 103 H 19 98 01/06/17 08:55 97.2 F L 81 100 01/06/17 08:50 97.2 F L 78 8 L 100 01/06/17 08:40 97.0 F L 67 19 100 01/06/17 08:30 96.8 F L 76 11 L 100 01/06/17 08:00 98.1 F 77 20 100 01/06/17 07:30 96.8 F L 80 15 100 01/06/17 07:27 97.0 F L 74 99 01/06/17 07:23 97.2 F L 74 100 01/06/17 07:20 97.2 F L 72 10 L 99 01/06/17 07:18 97.2 F L 77 100 01/06/17 07:17 97.2 F L 74 100 01/06/17 07:10 97.2 F L 71 16 100 01/06/17 07:00 97.0 F L 74 11 L 170/95 H 100 01/06/17 06:50 96.8 F L 78 100 01/06/17 06:47 96.6 F L 77 92 L 01/06/17 06:45 96.6 F L 100 01/06/17 06:44 96.6 F L 98 Intake and Output (Last 8hrs): Intake & Output 01/05/17 01/06/17 01/06/17 22:59 06:59 14:59 Intake Total 1800 1812 879 Output Total 1400 800 325 Balance 400 1012 554 Intake: IV 1700 1332 319 IVF 300 Left Forearm 1000 Left Hand 500 Precedex 1 Right Forearm 200 1257 Oral 100 480 560 Output: Urine 1400 800 325 Urethral (Ontiveros) 1400 800 325 - Physical Exam Head: Positive for: Atraumatic, Normocephalic. Negative for: Tenderness, Contusion, Swelling, Ecchymosis, Abrasion, Laceration Extroacular Muscles: Positive for: EOMI Conjunctiva: Positive for: Normal Mouth: Positive for: Moist Mucous Membranes Neck: Positive for: Normal Range of Motion Respiratory/Chest: Positive for: Clear to Auscultation, Good Air Exchange. Negative for: Respiratory Distress, Accessory Muscle Use, Wheezes, Rales, Rhonchi Cardiovascular: Positive for: Regular Rate and Rhythm, Normal S1, S2. Negative for: Murmurs, Rub, Gallop Abdomen: Positive for: Normal Bowel Sounds. Negative for: Tenderness, Distention, Peritoneal Signs, Rebound, Guarding Back: Positive for: Normal Inspection Upper Extremity: Positive for: Normal Inspection, Other (left forearm with linear lacerations). Negative for: Cyanosis, Edema Lower Extremity: Positive for: Normal Inspection. Negative for: Edema Neurological: Positive for: GCS=15, CN II-XII Intact, Speech Normal, Motor Func Grossly Intact, Normal Sensory Function Skin: Positive for: Warm, Dry, Normal Color. Negative for: Rashes Psychiatric: Positive for: Alert, Oriented x 3 - Medications Active Medications: Active Medications Generic Name Dose Route Start Last Admin Trade Name Freq PRN Reason Stop Dose Admin Heparin Sodium (Porcine) 5,000 units 01/05/17 09:30 01/06/17 05:33 Heparin SC 5,000 units Q8 JOANNA Administration Protocol Dexmedetomidine HCl 400 mcg in 100 mls @ 5.08 mls/hr 01/05/17 07:05 01/06/17 07:25 Precedex 4 Mcg/Ml (100 Ml) IV 0 mcg/kg/hr .[id number] PRN 0 mls/hr Anxiety Titration Protocol 0.2 MCG/KG/HR Lorazepam 2 mg 01/03/17 15:12 01/06/17 04:35 Ativan IVP 2 mg Q4H PRN Administration Anxiety Protocol Ondansetron HCl 4 mg 01/05/17 17:41 01/05/17 17:50 Zofran Inj IVP 4 mg Q6H PRN Administration Nausea/Vomiting Pantoprazole Sodium 40 mg 01/03/17 10:00 01/06/17 09:22 Protonix Inj IVP 40 mg DAILY JOANNA Administration - Patient Studies Lab Studies: Microbiology Studies 01/03/17 06:30 Blood Culture - Preliminary Blood NO GROWTH AFTER 3 DAYS 01/03/17 06:00 Blood Culture - Preliminary Blood NO GROWTH AFTER 3 DAYS Lab Studies 01/06/17 01/06/17 Range/Units 05:20 05:20 WBC 10.0 (4.5-11.0) 10^3/ul RBC 4.22 (3.5-6.1) 10^6/uL Hgb 13.2 L (14.0-18.0) g/dL Hct 38.0 L (42.0-52.0) % MCV 90.0 (80.0-105.0) fl MCH 31.3 (25.0-35.0) pg MCHC 34.7 (31.0-37.0) g/dl RDW 14.3 (11.5-14.5) % Plt Count 128 (120.0-450.0) 10^3/uL MPV 9.9 (7.0-11.0) fl Gran % 81.6 H (50.0-68.0) % Lymph % (Auto) 9.8 L (22.0-35.0) % [place] % (Auto) 8.1 H (1.0-6.0) % Eos % (Auto) 0.4 L (1.5-5.0) % Baso % (Auto) 0.1 (0.0-3.0) % Gran # 8.14 H (1.4-6.5) Lymph # 1.0 L (1.2-3.4) [place] # 0.8 H (0.1-0.6) Eos # 0.0 (0.0-0.7) Baso # 0.01 (0.0-2.0) K/mm3 Sodium 145 (132-148) mmol/L Potassium 3.6 (3.6-5.0) mmol/L Chloride 110 H (98-107) mmol/L Carbon Dioxide 29 (21-33) mmol/L Anion Gap 9 L (10-20) BUN 9 (7-21) mg/dL Creatinine 1.1 (0.8-1.5) mg/dl Est GFR ( Amer) > 60 Est GFR (Non-Af Amer) > 60 Random Glucose 100 (70-110) mg/dL Calcium 8.2 L (8.4-10.5) mg/dL Total Bilirubin 0.9 (0.2-1.3) mg/dL AST 31 (17-59) U/L ALT 34 (7-56) U/L Alkaline Phosphatase 41 (38-126) U/L Total Creatine Kinase 367 H (35-230) U/L CK-MB (CK-2) 1.0 (0.0-3.6) ng/mL CK-MB (CK-2) % Cancelled Total Protein 5.6 L (5.8-8.3) g/dL Albumin 2.9 L (3.0-4.8) g/dL Globulin 2.7 gm/dL Albumin/Globulin Ratio 1.1 (1.1-1.8) Laboratory Results - last 24 hr 01/06/17 01/06/17 05:20 05:20 WBC 10.0 RBC 4.22 Hgb 13.2 L Hct 38.0 L MCV 90.0 MCH 31.3 MCHC 34.7 RDW 14.3 Plt Count 128 MPV 9.9 Gran % 81.6 H Lymph % (Auto) 9.8 L [place] % (Auto) 8.1 H Eos % (Auto) 0.4 L Baso % (Auto) 0.1 Gran # 8.14 H Lymph # 1.0 L [place] # 0.8 H Eos # 0.0 Baso # 0.01 Sodium 145 Potassium 3.6 Chloride 110 H Carbon Dioxide 29 Anion Gap 9 L BUN 9 Creatinine 1.1 Est GFR ( Amer) > 60 Est GFR (Non-Af Amer) > 60 Random Glucose 100 Calcium 8.2 L Total Bilirubin 0.9 AST 31 ALT 34 Alkaline Phosphatase 41 Total Creatine Kinase 367 H CK-MB (CK-2) 1.0 CK-MB (CK-2) % Cancelled Total Protein 5.6 L Albumin 2.9 L Globulin 2.7 Albumin/Globulin Ratio 1.1 Fingerstick Blood Sugar Results: 105 Critical Care Progress Note - Nutrition Nutrition: Nutrition Category Date Time Status Regular Diet [DIET] Diets 01/06/17 Breakfast Ordered Assessment/Plan - Assessment and Plan (Free Text) Plan: 36yo male with history of polysubstance abuse and suicidal ideation presented with altered mental status post ingestion of benzos, cocaine, THC, opiates, barbituates and tylenol. Neuro: -AMS likely secondary to polysubstance ingestion; Utox notable for cocaine, benzos, THC, opiates and barbituates -Extubated yesterday with propofol weened off; precedex weened off this morning -Awake, alert and oriented x3; answering questions appropriately -CT Head reviewed; no acute intracranial abnormalities (see full report) -NAC for tylenol toxicity completed -Neuro following - Dr. Perez -Poison control notified Cardio: -Hemodynamically stable at this time; Maintain MAP > 65 -EKG reviewed; no acute ST-T wave changes; no qtc prolongation Pulm: -Maintain SaO2 > 90%; saturating > 95% on room air -HOB > 30' GI: -Protonix for GI prophylaxis Endo: -Maintain euglycemia with blood sugar between 140-180 -Tolerating regular diet well Nephro: -Monitor and replete electrolytes as indicated -IVF discontinued Heme: -DVT prophylaxis with heparin ID: -afebrile, no leukocytosis -procalcitonin negative -Cultures negative -No source of infection at this time Patient seen and case discussed/reviewed with attending, Dr. Nagy <Erwin Nagy - Last Filed: 01/06/17 18:23> CCU Objective - Vital Signs / Intake & Output Vital Signs (Last 4 hours): Vital Signs Temp Pulse Resp BP Pulse Ox 01/06/17 17:41 92 H 01/06/17 17:40 97 H 01/06/17 17:39 96 H 35 H 01/06/17 17:38 93 H 15 01/06/17 17:37 91 H 19 01/06/17 17:36 97 H 01/06/17 17:35 95 H 16 01/06/17 17:34 93 H 19 01/06/17 17:33 100 H 19 01/06/17 17:32 97 H 33 H 01/06/17 17:31 94 H 15 01/06/17 17:30 96 H 26 H 01/06/17 17:29 96 H 23 01/06/17 17:28 98 H 22 01/06/17 17:27 97 H 30 H 01/06/17 17:26 91 H 27 H 01/06/17 17:25 100 H 16 01/06/17 17:24 91 H 25 H 01/06/17 17:23 90 10 L 01/06/17 17:22 87 16 01/06/17 17:21 92 H 21 01/06/17 17:20 94 H 24 01/06/17 17:19 94 H 38 H 01/06/17 17:18 99 H 19 01/06/17 17:17 94 H 19 01/06/17 17:16 96 H 29 H 01/06/17 17:15 95 H 18 01/06/17 17:14 89 20 01/06/17 17:13 97 H 27 H 01/06/17 17:12 95 H 22 01/06/17 17:11 98 H 18 01/06/17 17:10 95 H 30 H 01/06/17 17:09 94 H 15 01/06/17 17:08 93 H 25 H 01/06/17 17:07 98 H 13 01/06/17 17:06 93 H 01/06/17 17:05 91 H 21 01/06/17 17:04 88 27 H 01/06/17 17:03 86 16 01/06/17 17:02 89 15 01/06/17 17:01 93 H 12 01/06/17 17:00 93 H 12 01/06/17 16:59 90 22 01/06/17 16:58 98 H 21 01/06/17 16:57 89 15 01/06/17 16:56 93 H 17 01/06/17 16:55 95 H 27 H 01/06/17 16:54 85 17 01/06/17 16:53 93 H 19 01/06/17 16:52 92 H 12 01/06/17 16:51 93 H 24 01/06/17 16:50 91 H 25 H 01/06/17 16:49 89 25 H 01/06/17 16:48 88 11 L 01/06/17 16:47 95 H 13 01/06/17 16:46 94 H 01/06/17 16:45 95 H 15 01/06/17 16:44 91 H 18 01/06/17 16:43 92 H 14 01/06/17 16:42 92 H 19 01/06/17 16:41 98 H 15 01/06/17 16:40 83 11 L 01/06/17 16:39 91 H 13 01/06/17 16:38 93 H 15 01/06/17 16:37 98 H 15 01/06/17 16:36 95 H 17 01/06/17 16:35 96 H 18 01/06/17 16:34 99 H 16 01/06/17 16:33 97 H 17 01/06/17 16:32 95 H 12 01/06/17 16:31 95 H 21 01/06/17 16:30 92 H 01/06/17 16:29 91 H 01/06/17 16:28 92 H 12 01/06/17 16:27 96 H 20 01/06/17 16:26 88 15 01/06/17 16:25 96 H 17 01/06/17 16:24 103 H 01/06/17 16:23 167/89 H 01/06/17 16:22 95 H 21 176/110 H 01/06/17 16:21 94 H 16 149/102 H 01/06/17 16:20 98 H 14 01/06/17 16:19 11 L 01/06/17 16:18 18 01/06/17 16:00 98.3 F 75 20 97 01/06/17 14:52 94 H 19 01/06/17 14:51 94 H 13 01/06/17 14:50 91 H 24 01/06/17 14:49 96 H 15 01/06/17 14:48 97 H 22 01/06/17 14:47 95 H 26 H 01/06/17 14:46 93 H 18 01/06/17 14:45 96 H 28 H 01/06/17 14:44 89 12 01/06/17 14:43 91 H 15 01/06/17 14:42 81 11 L 01/06/17 14:41 87 11 L 01/06/17 14:40 95 H 20 01/06/17 14:39 91 H 12 01/06/17 14:38 80 27 H 01/06/17 14:37 77 13 01/06/17 14:36 81 11 L 01/06/17 14:35 89 20 01/06/17 14:34 85 13 01/06/17 14:33 89 13 01/06/17 14:32 80 16 01/06/17 14:30 149/96 H Intake and Output (Last 8hrs): Intake & Output 01/06/17 01/06/17 01/06/17 06:59 14:59 22:59 Intake Total 1812 879 720 Output Total 800 1075 400 Balance 1012 -196 320 Intake: IV 1332 319 IVF 300 Precedex 1 Right Forearm 1257 Oral 480 560 720 Output: Urine 800 1075 400 Urethral (Ontiveros) 800 325 Urine, Voided 750 400 - Medications Active Medications: Active Medications Generic Name Dose Route Start Last Admin Trade Name Freq PRN Reason Stop Dose Admin Duloxetine HCl 20 mg 01/06/17 12:30 01/06/17 17:12 Cymbalta PO 20 mg BID JOANNA Administration Heparin Sodium (Porcine) 5,000 units 01/05/17 09:30 01/06/17 13:24 Heparin SC Not Given Q8 JOANNA Protocol Dexmedetomidine HCl 400 mcg in 100 mls @ 5.08 mls/hr 01/05/17 07:05 01/06/17 07:25 Precedex 4 Mcg/Ml (100 Ml) IV 0 mcg/kg/hr .[id number] PRN 0 mls/hr Anxiety Titration Protocol 0.2 MCG/KG/HR Lorazepam 2 mg 01/03/17 15:12 01/06/17 11:04 Ativan IVP 2 mg Q4H PRN Administration Anxiety Protocol Lorazepam 2 mg 01/06/17 14:00 01/06/17 17:05 Ativan IVP 2 mg QID JOANNA Administration Protocol Ondansetron HCl 4 mg 01/05/17 17:41 01/05/17 17:50 Zofran Inj IVP 4 mg Q6H PRN Administration Nausea/Vomiting Pantoprazole Sodium 40 mg 01/03/17 10:00 01/06/17 09:22 Protonix Inj IVP 40 mg DAILY JOANNA Administration - Patient Studies Lab Studies: Microbiology Studies 01/03/17 06:30 Blood Culture - Preliminary Blood NO GROWTH AFTER 3 DAYS 01/03/17 06:00 Blood Culture - Preliminary Blood NO GROWTH AFTER 3 DAYS Lab Studies 01/06/17 01/06/17 Range/Units 05:20 05:20 WBC 10.0 (4.5-11.0) 10^3/ul RBC 4.22 (3.5-6.1) 10^6/uL Hgb 13.2 L (14.0-18.0) g/dL Hct 38.0 L (42.0-52.0) % MCV 90.0 (80.0-105.0) fl MCH 31.3 (25.0-35.0) pg MCHC 34.7 (31.0-37.0) g/dl RDW 14.3 (11.5-14.5) % Plt Count 128 (120.0-450.0) 10^3/uL MPV 9.9 (7.0-11.0) fl Gran % 81.6 H (50.0-68.0) % Lymph % (Auto) 9.8 L (22.0-35.0) % [place] % (Auto) 8.1 H (1.0-6.0) % Eos % (Auto) 0.4 L (1.5-5.0) % Baso % (Auto) 0.1 (0.0-3.0) % Gran # 8.14 H (1.4-6.5) Lymph # 1.0 L (1.2-3.4) [place] # 0.8 H (0.1-0.6) Eos # 0.0 (0.0-0.7) Baso # 0.01 (0.0-2.0) K/mm3 Sodium 145 (132-148) mmol/L Potassium 3.6 (3.6-5.0) mmol/L Chloride 110 H (98-107) mmol/L Carbon Dioxide 29 (21-33) mmol/L Anion Gap 9 L (10-20) BUN 9 (7-21) mg/dL Creatinine 1.1 (0.8-1.5) mg/dl Est GFR ( Amer) > 60 Est GFR (Non-Af Amer) > 60 Random Glucose 100 (70-110) mg/dL Calcium 8.2 L (8.4-10.5) mg/dL Total Bilirubin 0.9 (0.2-1.3) mg/dL AST 31 (17-59) U/L ALT 34 (7-56) U/L Alkaline Phosphatase 41 (38-126) U/L Total Creatine Kinase 367 H (35-230) U/L CK-MB (CK-2) 1.0 (0.0-3.6) ng/mL CK-MB (CK-2) % Cancelled Total Protein 5.6 L (5.8-8.3) g/dL Albumin 2.9 L (3.0-4.8) g/dL Globulin 2.7 gm/dL Albumin/Globulin Ratio 1.1 (1.1-1.8) Laboratory Results - last 24 hr 01/06/17 01/06/17 05:20 05:20 WBC 10.0 RBC 4.22 Hgb 13.2 L Hct 38.0 L MCV 90.0 MCH 31.3 MCHC 34.7 RDW 14.3 Plt Count 128 MPV 9.9 Gran % 81.6 H Lymph % (Auto) 9.8 L [place] % (Auto) 8.1 H Eos % (Auto) 0.4 L Baso % (Auto) 0.1 Gran # 8.14 H Lymph # 1.0 L [place] # 0.8 H Eos # 0.0 Baso # 0.01 Sodium 145 Potassium 3.6 Chloride 110 H Carbon Dioxide 29 Anion Gap 9 L BUN 9 Creatinine 1.1 Est GFR ( Amer) > 60 Est GFR (Non-Af Amer) > 60 Random Glucose 100 Calcium 8.2 L Total Bilirubin 0.9 AST 31 ALT 34 Alkaline Phosphatase 41 Total Creatine Kinase 367 H CK-MB (CK-2) 1.0 CK-MB (CK-2) % Cancelled Total Protein 5.6 L Albumin 2.9 L Globulin 2.7 Albumin/Globulin Ratio 1.1 Critical Care Progress Note - Nutrition Nutrition: Nutrition Category Date Time Status Regular Diet [DIET] Diets 01/06/17 Breakfast Ordered Attending/Attestation - Attestation I have personally seen and examined this patient.: Yes I have fully participated in the care of the patient.: Yes I have reviewed all pertinent clinical information: Yes Notes (Text): 01/06/17 18:23 01/06/17 18:12 61 yo with previous psych history and bzd/opiate/cocaine abuse who presented with multidrug overdose, requiring intubation for airway protection. He quickly turned about, was successfully extubated and had uneventful night. He is alert and oriented x 3, hemodynamically and respiratory stable, psych eval is appreciated-->restarted bzd to avoid withdrawal. continue 1:1, optimize circadian and sleep pattern to avoid hospital delirium. DVT/GI prophylaxis ccm time 40 min 01/06/17 18:17
--- NOTE | 2017-01-06 14:21 | CP.PCM.PN ---
<Milton Rosales - Last Filed: 01/06/17 14:18> Subjective - Date & Time of Evaluation Date of Evaluation: 01/06/17 Time of Evaluation: 14:18 - Subjective Subjective: Medicine progress note for Dr. Maximo Rosales, PGY - 1, Pt s/e bedside. Patient does remember OD'ing on 'xanax and some other barbiturates,' but does not recall taking cocaine. He states that he saw his was 'cold, unresponsive,' and so he took several pills and attempted suicide. Patient has no recollection of his dying and is asking if he can see her, where she is, and how she is doing. Pt also states that he is withdrawing from ciboxone, complaining of 'restless legs' and a headache. No other complaints at this time. Objective - Vital Signs/Intake and Output Vital Signs (last 24 hours): Temp Pulse Resp BP Pulse Ox 98.6 F 80 21 156/86 H 97 01/06/17 12:00 01/06/17 12:19 01/06/17 12:19 01/06/17 09:30 01/06/17 12:00 Intake and Output: 01/06/17 01/06/17 06:59 18:59 Intake Total 3612 879 Output Total 2200 725 Balance 1412 154 - Medications Medications: Current Medications Duloxetine HCl (Cymbalta) 20 mg PO BID [facility] Last Admin: 01/06/17 12:57 Dose: 20 mg Heparin Sodium (Porcine) (Heparin) 5,000 units SC Q8 JOANNA PRN Reason: Protocol Last Admin: 01/06/17 13:24 Dose: Not Given Dexmedetomidine HCl (Precedex 4 Mcg/Ml (100 Ml)) 400 mcg in 100 mls @ 5.08 mls/ hr IV .[id number] PRN; Protocol; 0.2 MCG/KG/HR PRN Reason: Anxiety Last Titration: 01/06/17 07:25 Dose: 0 mcg/kg/hr, 0 mls/hr Lorazepam (Ativan) 2 mg IVP Q4H PRN; Protocol PRN Reason: Anxiety Last Admin: 01/06/17 11:04 Dose: 2 mg Lorazepam (Ativan) 2 mg IVP QID JOANNA PRN Reason: Protocol Last Admin: 01/06/17 13:25 Dose: Not Given Ondansetron HCl (Zofran Inj) 4 mg IVP Q6H PRN PRN Reason: Nausea/Vomiting Last Admin: 01/05/17 17:50 Dose: 4 mg Pantoprazole Sodium (Protonix Inj) 40 mg IVP DAILY [facility] Last Admin: 01/06/17 09:22 Dose: 40 mg - Labs Labs: 01/06/17 05:20 01/06/17 05:20 PT 14.8 SECONDS (9.4-12.5) H 01/04/17 06:00 INR 1.34 (0.93-1.08) H 01/04/17 06:00 APTT 31.1 Seconds (25.1-36.5) 01/04/17 06:00 - Additional Findings Additional findings: Phys Exam: VS as below Const'l: +Pt extubated, now AAOX4, mildly restless Head/Neck: +Pt has coronal sutures on the right side of his head; neck supple , no jvd, trachea midline, carotid midline, no cervical/head mass Eyes: afshin, nonicteric sclera, eom intact ENT: auditory acuity grossly intact, throat not congested, no nasal deformity Cardio: rrr, no m/r/g, no carotid bruit, nml s1, s2 Pulm: no accessory muscle use, equal nml breath sounds bilaterally, ctab Abd: s/nt/nd, nbs x 4 q, no palpable masses Derm: no rashes, no ulcers, no lesions Extr: no edema, no cyanosis, no calf tenderness, no lesions, no varicosities Neuro: cn II-XII grossly intact, ue and le 5/5 muscle strength bilaterally, no los ue, le bilaterally and core Assessment and Plan - Assessment and Plan (Free Text) Assessment: A/P 36 y/o M with past medical history of IV drug abuse who presents with AMS secondary to multisubstance overdose in the setting of respiratory failure. UDS positive for cocaine, benzo, marijuana, opiate, barbiturate, tylenol. No EKG changes at this time with tylenol level decreasing. Recent extubation AMS, likely 2/2 substance abuse - Pt extubated, icu d/c to tele - Neuro check q4h, Aspiration precaution, Head of bed elevated 30 degrees, Seizure precaution - LR 100 mls/hr - d/c'd - 1 on 1 Isolation - Aspiration, Seizure precautions; Vital signs q4, HOB 30 degrees Elevated Bilirubin - Resolved - T. Bili: 3.6 initially, decreased to 1.1 - Hep panel: negative Substance abuse (IVDA) - HIV: negative - Psych c/s: Dr. Toro - Methadone 25, wean by 5 everyday PPX - Protonix/SCDs Dispo: Pt on 1:1. Once PT evals him he should be d/c'd to Psych unit <Rolanda Marsh - Last Filed: 01/06/17 16:12> Objective - Vital Signs/Intake and Output Vital Signs (last 24 hours): Temp Pulse Resp BP Pulse Ox 98.6 F 94 H 19 149/96 H 97 01/06/17 12:00 01/06/17 14:52 01/06/17 14:52 01/06/17 14:30 01/06/17 12:00 Intake and Output: 01/06/17 01/06/17 06:59 18:59 Intake Total 3612 879 Output Total 2200 1075 Balance 1412 -196 - Medications Medications: Current Medications Duloxetine HCl (Cymbalta) 20 mg PO BID JOANNA Last Admin: 01/06/17 12:57 Dose: 20 mg Heparin Sodium (Porcine) (Heparin) 5,000 units SC Q8 JOANNA PRN Reason: Protocol Last Admin: 01/06/17 13:24 Dose: Not Given Dexmedetomidine HCl (Precedex 4 Mcg/Ml (100 Ml)) 400 mcg in 100 mls @ 5.08 mls/ hr IV .[id number] PRN; Protocol; 0.2 MCG/KG/HR PRN Reason: Anxiety Last Titration: 01/06/17 07:25 Dose: 0 mcg/kg/hr, 0 mls/hr Lorazepam (Ativan) 2 mg IVP Q4H PRN; Protocol PRN Reason: Anxiety Last Admin: 01/06/17 11:04 Dose: 2 mg Lorazepam (Ativan) 2 mg IVP QID JOANNA PRN Reason: Protocol Last Admin: 01/06/17 13:25 Dose: Not Given Ondansetron HCl (Zofran Inj) 4 mg IVP Q6H PRN PRN Reason: Nausea/Vomiting Last Admin: 01/05/17 17:50 Dose: 4 mg Pantoprazole Sodium (Protonix Inj) 40 mg IVP DAILY JOANNA Last Admin: 01/06/17 09:22 Dose: 40 mg - Labs Labs: 01/06/17 05:20 01/06/17 05:20 PT 14.8 SECONDS (9.4-12.5) H 01/04/17 06:00 INR 1.34 (0.93-1.08) H 01/04/17 06:00 APTT 31.1 Seconds (25.1-36.5) 01/04/17 06:00 Attending/Attestation - Attestation I have personally seen and examined this patient.: Yes I have fully participated in the care of the patient.: Yes I have reviewed all pertinent clinical information, including history, physical exam and plan: Yes Notes (Text): I have seen and examined the patient at bedside. Agree with the above note with the following additions/ exceptions: Briefly this is 36 year old male with history of IVDA, Polysubstance abuse (opioids, cocaine, barbiturates, marijuana ) who was brought for evaluation of AMS. Patient got extubated yesterday. Today he is on NC and is alert, awake, oriented x4. He appears very sad and was also talking about his girlfriend. He admits that he wanted to end his life but now he realizes that he made a mistake. He wants to be treated in the psych unit. Tylenol level was really high upon admission and now its <10. He was given narcan and acetylcysteine. Poison control has closed the case. HIV and hep panel negative. As per team, suicide note was found on the scene. There are superficial cut suarez on both wrists. Psych consult appreciated. Continue 1:1. Patient will not be allowed to leave AMA unless cleared by psych. Will start tapering doses of methadone today. PT eval will be ordered. Upon discharge patient will follow up with PMD of choice. Dr Rolanda Marsh
--- NOTE | 2017-01-07 02:25 | CON ---
DATE: HISTORY OF PRESENT ILLNESS: Shortly, patient is a 36-year-old male with not known previous psychiatric history. Patient has history of polysubstance abuse and dependence. Patient was found overdosed at home. As per police department, patient's significant other overdosed at the house resulting in on the scene. Patient was intubated and extubated yesterday. Psych consult was called for evaluation of overdose, possible intention of overdose, rule out suicide attempt. Patient was seen. Labs reviewed. Previous history reviewed as well. As per previous history, patient has polysubstance abuse and dependence history and more than 8 rehabs in the past. Patient did not want to have any services in the community. Last time was seen by nurse practitioner, Maye. Assessment was dated 04/2015. Patient was seen today. Patient is currently on one-to-one. Patient presented to be tearful. Patient was asking about his . At the same time, patient has suspicion that his . Patient reported that on Wednesday, initially, they wanted to get high. After that, patient woke up and found his "cold and stiff." Patient reported that he thought that she , "I knew she was gone." After this, patient decided to overdose on medication, what left. Patient said that he took more than 15 pills of Klonopin 2 mg, barbiturate, he was not sure what was the dose as well as Xanax more than ten, 2 mg of Xanax. Patient reported after that he does not remember. Patient does not have any clear explanation why he did not call 911 when he found his . Patient said, "it didn't register in my head." Patient said after that he woke up in the hospital. Patient made it clear that he did not want to live without his back then, and that is why he overdosed on pills. Patient was tearful when he was talking about that. As per medical staff, patient's family wants to have meeting and bring bad news that patient's tomorrow. We will respect that decision. Patient reported that he was not depressed recently. He denied that he wanted to kill himself for the past 4 to 6 weeks. Patient denied history of suicidal attempt in the past, also denied current thoughts of killing himself. Patient said that he has a 16-year-old daughter and he wants to live for her. Patient said "in case if my is , I need to deal with that, I want to go to rehab, I want to feel better." This production underwriter reviewed vital signs. Vital signs seem to be stable. Temperature 98.3, pulse is 75, respirations 20, oxygen saturation is 97. Medications are reviewed. Patient is on Precedex, Cymbalta 20 mg twice a day, heparin, Ativan 2 mg IV push q.4 hours as needed, Ativan 2 mg IV push q.4 hours scheduled, Zofran, and Protonix. Labs reviewed, seem to be within normal limits. Chemistry reviewed. Toxicology reviewed, positive for opioids, barbiturates, cocaine, and cannabis. Alcohol level was less than 10 and acetaminophen level 214. Discussed with medical team as well as dry color mixer. MENTAL STATUS EXAMINATION: Patient appears to be confused, changing the stories, intermittent eye contact, tearful. Mood described, "I need to stay strong." Affect was tearful. Thought process, coherent, at the same time, at times, circumstantial. Thought content, patient denied visual, auditory, or tactile hallucinations. Denied paranoid ideation. The patient denied thoughts of harming himself or others. Denied intents or plan. Insight and judgment seem to be limited, but improving. Impulses are well controlled. Patient reported that he was filling his medication in [facility]. Patient was prescribed clonazepam 2 mg three times a day. Patient was on Suboxone, prescribed by Dr. Huynh. Patient also was on dextroamphetamine 20 mg last time filled in September, same prescriber. The patient also was on Xanax 2 mg four times a day, last time filled on 12/14/2016. Clonazepam as well as Suboxone was filled on 12/26/2016 and 12/29/2016 respectively. Patient also was on Cymbalta. IMPRESSION: Patient has history of polysubstance abuse and dependence. Patient is status post intentional overdose on drugs. Patient seems to be remorse over his act. Rule out substance-induced mood disorder. PLAN: Continue current management in order to avoid benzodiazepine withdrawal. Patient needs to be on Ativan. There is no Suboxone in the hospital. Methadone could be given. Cymbalta was resumed by the last doses. This production underwriter will follow up and advise accordingly. Patient's family wants to have family meeting in order to bring that news that patient's . We respect that decision. Patient is currently on one-to-one, agree with that. We will follow up and advise accordingly. Thank you very much for letting me participate in the care of your patient. Muna Anderson MD
[2017-01-07] MEDS: Pantoprazole 40 mg EC Tab PO SCH (06:02)
[2017-01-07 10:08] LABS: BASO # 0.01 K/mm3 (0.0-2.0); BASO % 0.1 % (0.0-3.0); EOS % 0.1 % (1.5-5.0); GRAN # 10.15 (1.4-6.5); GRAN % 84.2 % (50.0-68.0); HEMATOCRIT 40.4 % (42.0-52.0); MEAN CELL VOLUME 88.8 fl (80.0-105.0); MEAN CORPUSCULAR HGB CONC 34.9 g/dl (31.0-37.0); MEAN PLATELET VOLUME 9.4 fl (7.0-11.0); MONO # 0.9 (0.1-0.6); MONO % 7.6 % (1.0-6.0); WHITE BLOOD COUNT 12.1 10^3/ul (4.5-11.0)
[2017-01-07 11:11] LABS: ALB/GLOB RATIO 1.1 (1.1-1.8); ALKALINE PHOSPHATASE 52 U/L (38-126); ALT/SGPT 39 U/L (7-56); AST/SGOT 25 U/L (17-59); BILIRUBIN,TOTAL 0.8 mg/dL (0.2-1.3); BLOOD UREA NITROGEN 10 mg/dL (7-21); CALCIUM 8.5 mg/dL (8.4-10.5); CARBON DIOXIDE 31 mmol/L (21-33); CHLORIDE 103 mmol/L (98-107); GFR AFRICAN-AMERICAN > 60; GLUCOSE,RANDOM 145 mg/dL (70-110); TOTAL PROTEIN 6.3 g/dL (5.8-8.3)
[2017-01-07 11:21] LABS: POTASSIUM 3.4 mmol/L (3.6-5.0); SODIUM 141 mmol/L (132-148)
--- NOTE | 2017-01-07 14:37 | CP.PCM.CON ---
<IvetteDari dupree - Last Filed: 01/07/17 14:24> History of Present Illness - History of Present Illness History of Present Illness: This 36 year old male patient was seen at his bedside. He has been referred for a suicide attempt, he overdosed on prescribed medications after finding his . His ex and 16 year old daughter visited him last night and informed him that his was (he previously was unsure). He denies being suicidal at this time, and other than appropriate grief denies other psychiatric symptoms. He declines voluntary psychiatric admission. He indicates he does not want the Methadone tapered down, that he "needs" it at this level and just wants to be discharged home. Patient will be seen by the screeners to determine disposition. He is not psychiatrically cleared. Past Patient History - Infectious Disease Hx of Infectious Diseases: None - Past Social History Smoking Status: Former Smoker - CARDIAC Hx Cardiac Disorders: No - PULMONARY Hx Respiratory Disorders: No Other/Comment: LIGHT SMOKER - NEUROLOGICAL Hx Neurological Disorder: No - HEENT Hx HEENT Problems: No - RENAL Hx Chronic Kidney Disease: No - ENDOCRINE/METABOLIC Hx Endocrine Disorders: No - HEMATOLOGICAL/ONCOLOGICAL Hx Blood Disorders: No - INTEGUMENTARY Hx Dermatological Problems: Yes Other/Comment: FACIAL CELLULITIS - MUSCULOSKELETAL/RHEUMATOLOGICAL Hx Musculoskeletal Disorders: No Hx Falls: No - GASTROINTESTINAL Hx Gastrointestinal Disorders: No - GENITOURINARY/GYNECOLOGICAL Hx Genitourinary Disorders: No - PSYCHIATRIC Hx Psychophysiologic Disorder: Yes Hx Depression: Yes Hx Substance Use: Yes Other/Comment: SUBSTANCE ABUSE - SURGICAL HISTORY Hx Surgeries: No - ANESTHESIA Hx Anesthesia: No Meds Allergies/Adverse Reactions: Allergies Allergy/AdvReac Type Severity Reaction Status Date / Time No Known Allergies Allergy Unverified 01/02/17 18:54 - Medications Medications: Current Medications Chlordiazepoxide (Librium) 50 mg PO TID JOANNA PRN Reason: Protocol Duloxetine HCl (Cymbalta) 20 mg PO BID JOANNA Last Admin: 01/07/17 11:03 Dose: 20 mg Heparin Sodium (Porcine) (Heparin) 5,000 units SC Q8 JOANNA PRN Reason: Protocol Last Admin: 01/07/17 06:02 Dose: 5,000 units Lorazepam (Ativan) 2 mg IVP Q4H PRN; Protocol PRN Reason: Anxiety Last Admin: 01/07/17 02:17 Dose: 2 mg Ondansetron HCl (Zofran Inj) 4 mg IVP Q6H PRN PRN Reason: Nausea/Vomiting Last Admin: 01/05/17 17:50 Dose: 4 mg Pantoprazole Sodium (Protonix Ec Tab) 40 mg PO 0600 JOANNA Last Admin: 01/07/17 06:02 Dose: 40 mg Results - Vital Signs Recent Vital Signs: Last Vital Signs Temp 99.1 F 01/07/17 08:00 Pulse 85 01/07/17 09:10 Resp 17 01/07/17 09:10 BP 159/96 H 01/07/17 08:00 Pulse Ox 96 01/07/17 09:10 - Labs Result Diagrams: 01/07/17 09:50 01/07/17 09:50 Labs: Laboratory Results - last 24 hr 01/07/17 01/07/17 09:50 09:50 WBC 12.1 H D RBC 4.55 Hgb 14.1 Hct 40.4 L MCV 88.8 MCH 31.0 MCHC 34.9 RDW 14.0 Plt Count 152 MPV 9.4 Gran % 84.2 H Lymph % (Auto) 8.0 L [place] % (Auto) 7.6 H Eos % (Auto) 0.1 L Baso % (Auto) 0.1 Gran # 10.15 H Lymph # 1.0 L [place] # 0.9 H Eos # 0.0 Baso # 0.01 Sodium 141 Potassium 3.4 L Chloride 103 Carbon Dioxide 31 Anion Gap 10 BUN 10 Creatinine 0.9 Est GFR ( Amer) > 60 Est GFR (Non-Af Amer) > 60 Random Glucose 145 H Calcium 8.5 Total Bilirubin 0.8 AST 25 ALT 39 Alkaline Phosphatase 52 Total Protein 6.3 Albumin 3.3 Globulin 3.0 Albumin/Globulin Ratio 1.1 <Muna Anderson - Last Filed: 01/07/17 17:14> History of Present Illness - History of Present Illness History of Present Illness: patient was seen today with the nurse practitioner Patient ex- this is a patient and patient is aware that his Patient was found to be tearful, denied thoughts of harming himself or others Patient has no clear explanation why he has multiple cuts on his forearms prior to come to the hospital patient overdosed with medications patient made it clear that "I did not want to live without my " Patient was offered to admission, but patient declined that offer Patient is status post suicidal attempt [facility] screening process will be initiated Patient is currently on one-to-one Will follow-up and advised accordingly Patient is on Librium 50 mg 3 times a day methadone tapering dose Meds - Medications Medications: Current Medications Chlordiazepoxide (Librium) 50 mg PO TID JOANNA PRN Reason: Protocol Last Admin: 01/07/17 14:28 Dose: 50 mg Duloxetine HCl (Cymbalta) 20 mg PO BID [facility] Last Admin: 01/07/17 11:03 Dose: 20 mg Heparin Sodium (Porcine) (Heparin) 5,000 units SC Q8 JOANNA PRN Reason: Protocol Last Admin: 01/07/17 14:28 Dose: 5,000 units Lorazepam (Ativan) 2 mg IVP Q4H PRN; Protocol PRN Reason: Anxiety Last Admin: 01/07/17 16:03 Dose: 2 mg Ondansetron HCl (Zofran Inj) 4 mg IVP Q6H PRN PRN Reason: Nausea/Vomiting Last Admin: 01/05/17 17:50 Dose: 4 mg Pantoprazole Sodium (Protonix Ec Tab) 40 mg PO 0600 JOANNA Last Admin: 01/07/17 06:02 Dose: 40 mg Results - Vital Signs Recent Vital Signs: Last Vital Signs Temp 100 F H 01/07/17 16:00 Pulse 93 H 01/07/17 16:00 Resp 20 01/07/17 16:00 BP 153/106 H 01/07/17 16:00 Pulse Ox 94 L 01/07/17 16:00 - Labs Result Diagrams: 01/07/17 09:50 01/07/17 09:50 Labs: Laboratory Results - last 24 hr 01/07/17 01/07/17 09:50 09:50 WBC 12.1 H D RBC 4.55 Hgb 14.1 Hct 40.4 L MCV 88.8 MCH 31.0 MCHC 34.9 RDW 14.0 Plt Count 152 MPV 9.4 Gran % 84.2 H Lymph % (Auto) 8.0 L [place] % (Auto) 7.6 H Eos % (Auto) 0.1 L Baso % (Auto) 0.1 Gran # 10.15 H Lymph # 1.0 L [place] # 0.9 H Eos # 0.0 Baso # 0.01 Sodium 141 Potassium 3.4 L Chloride 103 Carbon Dioxide 31 Anion Gap 10 BUN 10 Creatinine 0.9 Est GFR ( Amer) > 60 Est GFR (Non-Af Amer) > 60 Random Glucose 145 H Calcium 8.5 Total Bilirubin 0.8 AST 25 ALT 39 Alkaline Phosphatase 52 Total Protein 6.3 Albumin 3.3 Globulin 3.0 Albumin/Globulin Ratio 1.1
--- NOTE | 2017-01-07 17:34 | CP.PCM.PN ---
<Milton Rosales - Last Filed: 01/07/17 17:30> Subjective - Date & Time of Evaluation Date of Evaluation: 01/07/17 Time of Evaluation: 17:30 - Subjective Subjective: Medicine progress note for Dr. Maximo Rosales, PGY - 1, Pt s/e bedside. Pt states that he is withdrawing from his suboxone and needs methadone. He now knows that his has . He denies any SI or HI at this time. I counseled patient to be there for his daughter and that he should try to find meaning in his life through her. Pt states that he is going to do the same. Objective - Vital Signs/Intake and Output Vital Signs (last 24 hours): Temp Pulse Resp BP Pulse Ox 100 F H 93 H 20 153/106 H 94 L 01/07/17 16:00 01/07/17 16:00 01/07/17 16:00 01/07/17 16:00 01/07/17 16:00 - Medications Medications: Current Medications Chlordiazepoxide (Librium) 50 mg PO TID JOANNA PRN Reason: Protocol Last Admin: 01/07/17 14:28 Dose: 50 mg Duloxetine HCl (Cymbalta) 20 mg PO BID JOANNA Last Admin: 01/07/17 11:03 Dose: 20 mg Heparin Sodium (Porcine) (Heparin) 5,000 units SC Q8 JOANNA PRN Reason: Protocol Last Admin: 01/07/17 14:28 Dose: 5,000 units Lorazepam (Ativan) 2 mg IVP Q4H PRN; Protocol PRN Reason: Anxiety Last Admin: 01/07/17 16:03 Dose: 2 mg Ondansetron HCl (Zofran Inj) 4 mg IVP Q6H PRN PRN Reason: Nausea/Vomiting Last Admin: 01/05/17 17:50 Dose: 4 mg Pantoprazole Sodium (Protonix Ec Tab) 40 mg PO 0600 JOANNA Last Admin: 01/07/17 06:02 Dose: 40 mg - Labs Labs: 01/07/17 09:50 01/07/17 09:50 PT 14.8 SECONDS (9.4-12.5) H 01/04/17 06:00 INR 1.34 (0.93-1.08) H 01/04/17 06:00 APTT 31.1 Seconds (25.1-36.5) 01/04/17 06:00 - Additional Findings Additional findings: Phys Exam: VS as below Const'l: +Pt extubated, now AAOX4, mildly restless Head/Neck: +Pt has coronal sutures on the right side of his head; neck supple , no jvd, trachea midline, carotid midline, no cervical/head mass Eyes: afshin, nonicteric sclera, eom intact ENT: auditory acuity grossly intact, throat not congested, no nasal deformity Cardio: rrr, no m/r/g, no carotid bruit, nml s1, s2 Pulm: no accessory muscle use, equal nml breath sounds bilaterally, ctab Abd: s/nt/nd, nbs x 4 q, no palpable masses Derm: no rashes, no ulcers, no lesions Extr: no edema, no cyanosis, no calf tenderness, no lesions, no varicosities Neuro: cn II-XII grossly intact, ue and le 5/5 muscle strength bilaterally, no los ue, le bilaterally and core Assessment and Plan - Assessment and Plan (Free Text) Assessment: A/P 36 y/o M with past medical history of IV drug abuse who presents with AMS secondary to multisubstance overdose in the setting of respiratory failure. UDS positive for cocaine, benzo, marijuana, opiate, barbiturate, tylenol. No EKG changes at this time with tylenol level decreasing. Recent extubation AMS, likely 2/2 substance abuse - Pt extubated, icu d/c to tele - Neuro check q4h, Aspiration precaution, Head of bed elevated 30 degrees, Seizure precaution - LR 100 mls/hr - d/c'd - 1 on 1 Isolation - Aspiration, Seizure precautions; Vital signs q4, HOB 30 degrees Elevated Bilirubin - Resolved - T. Bili: 3.6 initially, decreased to 1.1 - Hep panel: negative Substance abuse (IVDA) - HIV: negative - Psych c/s: Dr. Toro - Methadone 25, wean by 5 everyday - gave same dose today, but will start weaning tomorrow Suicidal Ideation - Psych consult PPX - Protonix/SCDs <Nahun Husain - Last Filed: 01/08/17 18:04> Objective - Vital Signs/Intake and Output Vital Signs (last 24 hours): Temp Pulse Resp BP Pulse Ox 99.4 F 90 20 146/96 H 98 01/08/17 16:00 01/08/17 16:00 01/08/17 16:00 01/08/17 16:00 01/08/17 16:00 Intake and Output: 01/08/17 01/08/17 06:59 18:59 Intake Total 2760 2540 Output Total 0 Balance 2760 2540 - Medications Medications: Current Medications Amlodipine Besylate (Norvasc) 5 mg PO DAILY [facility] Last Admin: 01/07/17 18:20 Dose: 5 mg Chlordiazepoxide (Librium) 50 mg PO TID [facility] PRN Reason: Protocol Last Admin: 01/08/17 17:28 Dose: 50 mg Duloxetine HCl (Cymbalta) 20 mg PO BID [facility] Last Admin: 01/08/17 17:28 Dose: 20 mg Heparin Sodium (Porcine) (Heparin) 5,000 units SC Q8 [facility] PRN Reason: Protocol Last Admin: 01/08/17 15:01 Dose: 5,000 units Sodium Chloride (Sodium Chloride 0.9%) 1,000 mls @ 150 mls/hr IV .Q6H40M [facility] Last Admin: 01/08/17 17:29 Dose: 150 mls/hr Ibuprofen (Motrin Tab) 400 mg PO Q6H PRN PRN Reason: Pain, Mild (1-3) Lorazepam (Ativan) 2 mg IVP Q4H PRN; Protocol PRN Reason: Anxiety Last Admin: 01/08/17 17:27 Dose: 2 mg Ondansetron HCl (Zofran Inj) 4 mg IVP Q6H PRN PRN Reason: Nausea/Vomiting Last Admin: 01/05/17 17:50 Dose: 4 mg Pantoprazole Sodium (Protonix Ec Tab) 40 mg PO 0600 [facility] Last Admin: 01/08/17 06:44 Dose: 40 mg - Labs Labs: 01/08/17 01:00 01/08/17 01:00 PT 14.8 SECONDS (9.4-12.5) H 01/04/17 06:00 INR 1.34 (0.93-1.08) H 01/04/17 06:00 APTT 31.1 Seconds (25.1-36.5) 01/04/17 06:00 Attending/Attestation - Attestation I have personally seen and examined this patient.: Yes I have fully participated in the care of the patient.: Yes I have reviewed all pertinent clinical information, including history, physical exam and plan: Yes Notes (Text): AMS, likely 2/2 substance abuse Extubated doing well today Poly -Substance abuse (IVDA) - Psych c/s: Dr. Toro Suicidal Ideation Depression
[2017-01-08] MEDS ORDERED: Sodium Chloride 0.9% 1,000 ML IV STA ×2 (01:00→10:01)
[2017-01-08 01:24] LABS: HEMATOCRIT 39.5 % (42.0-52.0); MEAN CELL VOLUME 87.8 fl (80.0-105.0); MEAN CORPUSCULAR HEMOGLOBIN 30.9 pg (25.0-35.0); MEAN CORPUSCULAR HGB CONC 35.2 g/dl (31.0-37.0); MEAN PLATELET VOLUME 9.7 fl (7.0-11.0); RED CELL DISTRIBUTION WIDTH 13.7 % (11.5-14.5); WHITE BLOOD COUNT 11.5 10^3/ul (4.5-11.0)
[2017-01-08 01:31] LABS: ALB/GLOB RATIO 1.1 (1.1-1.8); ALKALINE PHOSPHATASE 63 U/L (38-126); ALT/SGPT 72 U/L (7-56); AST/SGOT 52 U/L (17-59); BILIRUBIN,TOTAL 0.7 mg/dL (0.2-1.3); BLOOD UREA NITROGEN 14 mg/dL (7-21); CALCIUM 8.7 mg/dL (8.4-10.5); CARBON DIOXIDE 31 mmol/L (21-33); CHLORIDE 98 mmol/L (98-107); GFR AFRICAN-AMERICAN > 60; GLUCOSE,RANDOM 129 mg/dL (70-110); POTASSIUM 3.3 mmol/L (3.6-5.0); SODIUM 138 mmol/L (132-148); TOTAL PROTEIN 6.5 g/dL (5.8-8.3)
[2017-01-08 01:40] LABS: VENOUS BLOOD PH 7.49 (7.32-7.43)
[2017-01-08] MEDS ORDERED: Potassium Chloride 20 mEq ER Tab PO STA (01:45)
--- NOTE | 2017-01-08 01:48 | CP.PCM.PCO ---
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 Rectal temp was ordered and noted. Patient was seen and examined by me, and he does state that he feels warm and has a cough. pt denied other complaints of chest pain, sob, chills, n/v/d or abdominal pain. Patient recently extubated on 01/05/17 and does not have a denis catheter. 1 peripheral line in R wrist that was placed today and does not show signs of inflammation around insertion site. no signs of cellulitis or pain around prior site of peripheral IV line (L wrist). Lung sounds are CTA w/ no rales, rhonchi or wheezing noted. Ordered repeat CBC, CMP and VBG. Ordered tylenol and NS 1L bolus. Labs were reviewed and pt does not meet sepsis criteria. Will continue with IVF @ 150 cc/hr, and motrin prn fevers. Will continue to monitor. No further intervention needed at this time. Alvarado Canada PGY1 <Lindsey Jaimes - Last Filed: 01/09/17 07:01> Attending/Attestation - Attestation I have personally seen and examined this patient.: No I have fully participated in the care of the patient.: Yes I have reviewed all pertinent clinical information: Yes
[2017-01-08] MEDS: Sodium Chloride 0.9% 1,000 ML IV SCH ×3 (03:30→17:29)
[2017-01-08] MEDS: Pantoprazole 40 mg EC Tab PO SCH (06:44)
--- NOTE | 2017-01-08 11:03 | RAD ---
HISTORY: Fever COMPARISON: 01/05/2017 FINDINGS: LUNGS: No active pulmonary disease. PLEURA: No significant pleural effusion identified, no pneumothorax apparent. CARDIOVASCULAR: Normal. OSSEOUS STRUCTURES: No significant abnormalities. VISUALIZED UPPER ABDOMEN: Normal. OTHER FINDINGS: None. IMPRESSION: No active disease.
--- NOTE | 2017-01-08 13:17 | CP.PCM.CON ---
<Dari Steele - Last Filed: 01/08/17 13:02> History of Present Illness - History of Present Illness History of Present Illness: This 36 year old male is seen seated at the edge of his hospital bed, 1:1 in attendance. Affect is markedly improved. He indicates he is feeling progressively clearer with each passing day. He saw the screener yesterday, and he ended up signing the consent for voluntary psychiatric admission to be transferred once medically cleared. He has a prior diagnosis of Bipolar Disorder and indicates he wants to deal with his mood disorder in order to prevent further relapses. He appears to be motivated for change. He denies being suicidal or any other current psychiatric symptoms and appears to have stabilized. His sadness over the of his appears to be appropriate. He will be transferred to Psychiatry once medically cleared. Past Patient History - Infectious Disease Hx of Infectious Diseases: None - Past Social History Smoking Status: Former Smoker - CARDIAC Hx Cardiac Disorders: No - PULMONARY Hx Respiratory Disorders: No Other/Comment: LIGHT SMOKER - NEUROLOGICAL Hx Neurological Disorder: No - HEENT Hx HEENT Problems: No - RENAL Hx Chronic Kidney Disease: No - ENDOCRINE/METABOLIC Hx Endocrine Disorders: No - HEMATOLOGICAL/ONCOLOGICAL Hx Blood Disorders: No - INTEGUMENTARY Hx Dermatological Problems: Yes Other/Comment: FACIAL CELLULITIS - MUSCULOSKELETAL/RHEUMATOLOGICAL Hx Musculoskeletal Disorders: No Hx Falls: No - GASTROINTESTINAL Hx Gastrointestinal Disorders: No - GENITOURINARY/GYNECOLOGICAL Hx Genitourinary Disorders: No - PSYCHIATRIC Hx Psychophysiologic Disorder: Yes Hx Depression: Yes Hx Substance Use: Yes Other/Comment: SUBSTANCE ABUSE - SURGICAL HISTORY Hx Surgeries: No - ANESTHESIA Hx Anesthesia: No Meds Allergies/Adverse Reactions: Allergies Allergy/AdvReac Type Severity Reaction Status Date / Time No Known Allergies Allergy Unverified 01/02/17 18:54 - Medications Medications: Current Medications Amlodipine Besylate (Norvasc) 5 mg PO DAILY [facility] Last Admin: 01/07/17 18:20 Dose: 5 mg Chlordiazepoxide (Librium) 50 mg PO TID [facility] PRN Reason: Protocol Last Admin: 01/08/17 11:03 Dose: 50 mg Duloxetine HCl (Cymbalta) 20 mg PO BID [facility] Last Admin: 01/08/17 11:04 Dose: 20 mg Heparin Sodium (Porcine) (Heparin) 5,000 units SC Q8 [facility] PRN Reason: Protocol Last Admin: 01/08/17 06:44 Dose: 5,000 units Sodium Chloride (Sodium Chloride 0.9%) 1,000 mls @ 150 mls/hr IV .Q6H40M [facility] Last Admin: 01/08/17 11:05 Dose: 150 mls/hr Ibuprofen (Motrin Tab) 400 mg PO Q6H PRN PRN Reason: Pain, Mild (1-3) Lorazepam (Ativan) 2 mg IVP Q4H PRN; Protocol PRN Reason: Anxiety Last Admin: 01/08/17 08:03 Dose: 2 mg Ondansetron HCl (Zofran Inj) 4 mg IVP Q6H PRN PRN Reason: Nausea/Vomiting Last Admin: 01/05/17 17:50 Dose: 4 mg Pantoprazole Sodium (Protonix Ec Tab) 40 mg PO 0600 [facility] Last Admin: 01/08/17 06:44 Dose: 40 mg Results - Vital Signs Recent Vital Signs: Last Vital Signs Temp 99.7 F H 01/08/17 08:28 Pulse 80 01/08/17 08:28 Resp 20 01/08/17 08:28 BP 94/49 L 01/08/17 08:28 Pulse Ox 97 01/08/17 08:28 - Labs Result Diagrams: 01/08/17 01:00 01/08/17 01:00 Labs: Laboratory Results - last 24 hr 01/08/17 01/08/17 01/08/17 01:00 01:00 01:00 WBC 11.5 H RBC 4.50 Hgb 13.9 L Hct 39.5 L MCV 87.8 MCH 30.9 MCHC 35.2 RDW 13.7 Plt Count 171 MPV 9.7 pO2 63 H VBG pH 7.49 H VBG pCO2 44.0 VBG HCO3 33.5 H VBG Total CO2 34.9 H VBG O2 Sat (Calc) 96.0 H VBG Base Excess 9.0 H VBG Potassium 3.2 L Sodium 138 137.0 Chloride 98 100.0 Glucose 129 H Lactate 1.1 FiO2 21.0 Potassium 3.3 L Carbon Dioxide 31 Anion Gap 13 BUN 14 Creatinine 1.0 Est GFR ( Amer) > 60 Est GFR (Non-Af Amer) > 60 Random Glucose 129 H Calcium 8.7 Total Bilirubin 0.7 AST 52 ALT 72 H Alkaline Phosphatase 63 Total Protein 6.5 Albumin 3.4 Globulin 3.1 Albumin/Globulin Ratio 1.1 Venous Blood Potassium 3.2 L <Muna Anderson - Last Filed: 01/08/17 15:15> History of Present Illness - History of Present Illness History of Present Illness: see dictation note Meds - Medications Medications: Current Medications Amlodipine Besylate (Norvasc) 5 mg PO DAILY [facility] Last Admin: 01/07/17 18:20 Dose: 5 mg Chlordiazepoxide (Librium) 50 mg PO TID [facility] PRN Reason: Protocol Last Admin: 01/08/17 11:03 Dose: 50 mg Duloxetine HCl (Cymbalta) 20 mg PO BID [facility] Last Admin: 01/08/17 11:04 Dose: 20 mg Heparin Sodium (Porcine) (Heparin) 5,000 units SC Q8 [facility] PRN Reason: Protocol Last Admin: 01/08/17 06:44 Dose: 5,000 units Sodium Chloride (Sodium Chloride 0.9%) 1,000 mls @ 150 mls/hr IV .Q6H40M [facility] Last Admin: 01/08/17 11:05 Dose: 150 mls/hr Ibuprofen (Motrin Tab) 400 mg PO Q6H PRN PRN Reason: Pain, Mild (1-3) Lorazepam (Ativan) 2 mg IVP Q4H PRN; Protocol PRN Reason: Anxiety Last Admin: 01/08/17 08:03 Dose: 2 mg Ondansetron HCl (Zofran Inj) 4 mg IVP Q6H PRN PRN Reason: Nausea/Vomiting Last Admin: 01/05/17 17:50 Dose: 4 mg Pantoprazole Sodium (Protonix Ec Tab) 40 mg PO 0600 [facility] Last Admin: 01/08/17 06:44 Dose: 40 mg Results - Vital Signs Recent Vital Signs: Last Vital Signs Temp 99.7 F H 01/08/17 08:28 Pulse 80 01/08/17 08:28 Resp 20 01/08/17 08:28 BP 94/49 L 01/08/17 08:28 Pulse Ox 97 01/08/17 08:28 - Labs Result Diagrams: 01/08/17 01:00 01/08/17 01:00 Labs: Laboratory Results - last 24 hr 12/0101/08/17 01/08/17 01:00 01:00 01:00 WBC 11.5 H RBC 4.50 Hgb 13.9 L Hct 39.5 L MCV 87.8 MCH 30.9 MCHC 35.2 RDW 13.7 Plt Count 171 MPV 9.7 pO2 63 H VBG pH 7.49 H VBG pCO2 44.0 VBG HCO3 33.5 H VBG Total CO2 34.9 H VBG O2 Sat (Calc) 96.0 H VBG Base Excess 9.0 H VBG Potassium 3.2 L Sodium 138 137.0 Chloride 98 100.0 Glucose 129 H Lactate 1.1 FiO2 21.0 Potassium 3.3 L Carbon Dioxide 31 Anion Gap 13 BUN 14 Creatinine 1.0 Est GFR ( Amer) > 60 Est GFR (Non-Af Amer) > 60 Random Glucose 129 H Calcium 8.7 Total Bilirubin 0.7 AST 52 ALT 72 H Alkaline Phosphatase 63 Total Protein 6.5 Albumin 3.4 Globulin 3.1 Albumin/Globulin Ratio 1.1 Venous Blood Potassium 3.2 L
--- NOTE | 2017-01-08 13:41 | CP.PCM.PN ---
<Milton Rosales - Last Filed: 01/08/17 13:23> Subjective - Date & Time of Evaluation Date of Evaluation: 01/08/17 Time of Evaluation: 13:41 - Subjective Subjective: Medicine progress note for Dr. Maximo Rosales, PGY - 1, Pt s/e bedside. Pt states that his fever is due to his withdrawing from his suboxone and needs methadone. He further states that he gets this fever and sweating whenever he is withdrawing. He denies any symptoms of infection including chilles, cough, sob. He denies any SI or HI at this time. No further complaints Objective - Vital Signs/Intake and Output Vital Signs (last 24 hours): Temp Pulse Resp BP Pulse Ox 99.7 F H 80 20 94/49 L 97 01/08/17 08:28 01/08/17 08:28 01/08/17 08:28 01/08/17 08:28 01/08/17 08:28 Intake and Output: 01/08/17 01/08/17 06:59 18:59 Intake Total 2760 Output Total 0 Balance 2760 - Medications Medications: Current Medications Amlodipine Besylate (Norvasc) 5 mg PO DAILY [facility] Last Admin: 01/07/17 18:20 Dose: 5 mg Chlordiazepoxide (Librium) 50 mg PO TID [facility] PRN Reason: Protocol Last Admin: 01/08/17 11:03 Dose: 50 mg Duloxetine HCl (Cymbalta) 20 mg PO BID [facility] Last Admin: 01/08/17 11:04 Dose: 20 mg Heparin Sodium (Porcine) (Heparin) 5,000 units SC Q8 [facility] PRN Reason: Protocol Last Admin: 01/08/17 06:44 Dose: 5,000 units Sodium Chloride (Sodium Chloride 0.9%) 1,000 mls @ 150 mls/hr IV .Q6H40M [facility] Last Admin: 01/08/17 11:05 Dose: 150 mls/hr Ibuprofen (Motrin Tab) 400 mg PO Q6H PRN PRN Reason: Pain, Mild (1-3) Lorazepam (Ativan) 2 mg IVP Q4H PRN; Protocol PRN Reason: Anxiety Last Admin: 01/08/17 08:03 Dose: 2 mg Ondansetron HCl (Zofran Inj) 4 mg IVP Q6H PRN PRN Reason: Nausea/Vomiting Last Admin: 01/05/17 17:50 Dose: 4 mg Pantoprazole Sodium (Protonix Ec Tab) 40 mg PO 0600 [facility] Last Admin: 01/08/17 06:44 Dose: 40 mg - Labs Labs: 01/08/17 01:00 01/08/17 01:00 PT 14.8 SECONDS (9.4-12.5) H 01/04/17 06:00 INR 1.34 (0.93-1.08) H 01/04/17 06:00 APTT 31.1 Seconds (25.1-36.5) 01/04/17 06:00 - Additional Findings Additional findings: Phys Exam: VS as below Const'l: +Pt extubated, now AAOX4, mildly restless Head/Neck: +Pt has coronal sutures on the right side of his head; neck supple , no jvd, trachea midline, carotid midline, no cervical/head mass Eyes: afshin, nonicteric sclera, eom intact ENT: auditory acuity grossly intact, throat not congested, no nasal deformity Cardio: rrr, no m/r/g, no carotid bruit, nml s1, s2 Pulm: no accessory muscle use, equal nml breath sounds bilaterally, ctab Abd: s/nt/nd, nbs x 4 q, no palpable masses Derm: no rashes, no ulcers, no lesions Extr: no edema, no cyanosis, no calf tenderness, no lesions, no varicosities Neuro: cn II-XII grossly intact, ue and le 5/5 muscle strength bilaterally, no los ue, le bilaterally and core Assessment and Plan - Assessment and Plan (Free Text) Assessment: A/P 36 y/o M with past medical history of IV drug abuse who presents with AMS secondary to multisubstance overdose in the setting of respiratory failure. UDS positive for cocaine, benzo, marijuana, opiate, barbiturate, tylenol. Recent overnight fever, Acute Fever - Resolved - CXR negative, lactic acid negative - PCT, blood cultures pending AMS, likely 2/2 substance abuse - Pt extubated, icu d/c to tele - Neuro check q4h, Aspiration precaution, Head of bed elevated 30 degrees, Seizure precaution - LR 100 mls/hr - d/c'd - 1 on 1 Isolation - Aspiration, Seizure precautions; Vital signs q4, HOB 30 degrees Elevated Bilirubin - Resolved - T. Bili: 3.6 initially, decreased to 1.1 - Hep panel: negative Substance abuse (IVDA) - HIV: negative - Psych c/s: Dr. Toro - Increased Methadone to 40, wean by 5 everyday Suicidal Ideation - Psych consult PPX - Protonix/SCDs Dispo: Will await preliminary blood culture and PCT results. Patient otherwise medically stable for discharge to Psychiatry Unit <Nahun Husain - Last Filed: 01/08/17 18:05> Objective - Vital Signs/Intake and Output Vital Signs (last 24 hours): Temp Pulse Resp BP Pulse Ox 99.4 F 90 20 146/96 H 98 01/08/17 16:00 01/08/17 16:00 01/08/17 16:00 01/08/17 16:00 01/08/17 16:00 Intake and Output: 01/08/17 01/08/17 06:59 18:59 Intake Total 2760 2540 Output Total 0 Balance 2760 2540 - Medications Medications: Current Medications Amlodipine Besylate (Norvasc) 5 mg PO DAILY [facility] Last Admin: 01/07/17 18:20 Dose: 5 mg Chlordiazepoxide (Librium) 50 mg PO TID [facility] PRN Reason: Protocol Last Admin: 01/08/17 17:28 Dose: 50 mg Duloxetine HCl (Cymbalta) 20 mg PO BID [facility] Last Admin: 01/08/17 17:28 Dose: 20 mg Heparin Sodium (Porcine) (Heparin) 5,000 units SC Q8 [facility] PRN Reason: Protocol Last Admin: 01/08/17 15:01 Dose: 5,000 units Sodium Chloride (Sodium Chloride 0.9%) 1,000 mls @ 150 mls/hr IV .Q6H40M [facility] Last Admin: 01/08/17 17:29 Dose: 150 mls/hr Ibuprofen (Motrin Tab) 400 mg PO Q6H PRN PRN Reason: Pain, Mild (1-3) Lorazepam (Ativan) 2 mg IVP Q4H PRN; Protocol PRN Reason: Anxiety Last Admin: 01/08/17 17:27 Dose: 2 mg Ondansetron HCl (Zofran Inj) 4 mg IVP Q6H PRN PRN Reason: Nausea/Vomiting Last Admin: 01/05/17 17:50 Dose: 4 mg Pantoprazole Sodium (Protonix Ec Tab) 40 mg PO 0600 [facility] Last Admin: 01/08/17 06:44 Dose: 40 mg - Labs Labs: 01/08/17 01:00 01/08/17 01:00 PT 14.8 SECONDS (9.4-12.5) H 01/04/17 06:00 INR 1.34 (0.93-1.08) H 01/04/17 06:00 APTT 31.1 Seconds (25.1-36.5) 01/04/17 06:00 Attending/Attestation - Attestation I have personally seen and examined this patient.: Yes I have fully participated in the care of the patient.: Yes I have reviewed all pertinent clinical information, including history, physical exam and plan: Yes Notes (Text): AMS, likely 2/2 substance abuse Extubated doing well today Poly -Substance abuse (IVDA) - Psych c/s: Dr. Toro Suicidal Ideation Depression
[2017-01-08] MEDS ORDERED: Potassium Chloride 40 mEq/30 ml LIQ UD PO ONE (17:23)
--- NOTE | 2017-01-08 18:37 | PN ---
DATE: FOLLOWUP NOTE SUBJECTIVE: Shortly, the patient is a 36-year-old male, long debilitating history of polysubstance abuse and dependence. The patient was brought in to the emergency room via ALS and police status post overdose at home. In the field, the patient was given Narcan and intravenous Narcan with some response. As per police report, the patient's overdosed in the house with the patient resulting in of the patient's . Initially, the patient was admitted into ICU. Psych consult was called for evaluation of possible overdose on medication, intentional, rule out suicidal attempt or rule out suicidal pact. Please see initial consultation note for more detailed information. For the past few days, the patient was improving from the medical standpoint. The patient was started on methadone, Cymbalta was resumed. The patient was addicted to benzodiazepines also, that is why Librium was started. The patient made it clear that he found his and he did not want to live anymore, that is why he overdosed on all of the medications which include Xanax, Klonopin, Tylenol, as well as barbiturates. The patient was offered admission, but the patient declined that offer initially. Yesterday, [facility] Screening Services came over to talk to the patient, but the patient changed his mind and the patient wanted to sign himself into the psychiatric inpatient unit. The patient was willing to get voluntary treatment. The patient had a spike of fever yesterday as well as today, as well as had mild leukocytosis and medically is not cleared yet, and this health science writer is waiting for medical clearance in order to transfer the patient to the psychiatric inpatient unit. VITAL SIGNS: Checked; temperature is 101, was 102 at the morning time, later on it was 99.7. Blood pressure is 94/49. MEDICATIONS: Reviewed. The patient is on Norvasc, Librium 50 mg 3 times day scheduled, it will be tapered down. The patient was resumed on Cymbalta 20 mg twice a day. The patient is on heparin, Motrin, and Ativan 2 mg IV push q. 4 hours as needed for anxiety, as well as Zofran, Protonix, and sodium chloride. LABORATORY DATA: Labs reviewed. WBC is 11.5. Coagulation reviewed. Chemistry reviewed. Potassium is 3.3. Toxicology reviewed. Acetaminophen is going down. The patient had opioids positive in the urine, barbiturates positive in the urine, cocaine positive in the urine, and cannabis positive in the urine. Discussed with the medical team. MENTAL STATUS EXAMINATION: The patient appears to be alert, flat affect. Mood described, "I need to deal with my loses." Affect was tearful, mood congruent. Thought process seems to be coherent, goal directed. Thought content, the patient denied visual, auditory, or tactile hallucinations. Denied paranoid ideation. The patient denied thoughts of harming himself or others. Denied intents or plan, but this health science writer has concerns about patient's safety, and the patient made it clear that before coming to the hospital he wants to and that is why he wanted to overdose on medications. Insight and judgment are limited, but improving. Impulses are well controlled. IMPRESSION: Rule-out mood spectrum disorder, rule out bipolar disorder. The patient is status post suicidal attempt. The patient has polysubstance abuse and dependence. Rule out substance-induced mood disorder. PLAN: Right now, the patient has spike of fevers. Also, the patient has leukocytosis. Medically brooks, he needs to be doing okay in order to be transferred to the psychiatric inpatient unit. The patient is on tapering dose of methadone, needs to be decreased by 5 mg a day. The patient also was discussed about potential initiation of Wellbutrin for mood symptoms as well as Seroquel for mood stabilization. The patient needs to be on multivitamins, thiamine and folic acid. The patient is to be weaned off from the benzodiazepines. The patient is to be followed up with director of social services. The patient expressed his willingness to go to inpatient rehab and address his addiction problems, family involvement. Whenever the patient is cleared from the medical standpoint, we will transfer the patient to the psychiatric inpatient unit. Risks, benefits and alternatives of the medications discussed with the patient. The patient was in agreement to start Seroquel as well as Wellbutrin. Should you have any questions, give me a call back. Thank you very much for letting me participate in care of your patient. The patient will be followed up by Dr. Yang. Muna Anderson MD
[2017-01-08 23:14] LABS: URINE APPEARANCE CLEAR (CLEAR); URINE BILIRUBIN NEGATIVE (NEGATIVE); URINE BLOOD MODERATE (NEGATIVE); URINE COLOR YELLOW (YELLOW); URINE GLUCOSE (UA) NEGATIVE (NEGATIVE); URINE KETONE NEGATIVE (NEGATIVE); URINE LEUKOCYTE ESTERASE SMALL Leu/uL (NEGATIVE); URINE PROTEIN TRACE mg/dL (<30 mg/dL); URINE UROBILINOGEN 0.2 E.U./dL (<1 E.U./dL)
[2017-01-09 00:07] LABS: URINE RBC 15 - 20 /hpf (0-2)
[2017-01-09 00:09] LABS: URINE EPITHELIAL CELLS 0 - 2 /hpf (0-5)
[2017-01-09] MEDS: Pantoprazole 40 mg EC Tab PO SCH (05:04)
[2017-01-09] MEDS: Sodium Chloride 0.9% 1,000 ML IV SCH ×2 (09:32→17:41)
[2017-01-09 16:00] VITALS: RESP 20
--- NOTE | 2017-01-09 16:20 | CP.PCM.PN ---
<Milton Rosales - Last Filed: 01/09/17 15:53> Subjective - Date & Time of Evaluation Date of Evaluation: 01/09/17 Time of Evaluation: 15:53 - Subjective Subjective: Medicine progress note for Dr. Kenton Lund DO PGY - 1, Pager [phone] Pt s/e bedside. Pt states that his withdrawals have been under control with the methadone. He denies any symptoms of infection. He expresses a desire to stay at [facility] and get psychiatric evaluation, which he has also discussed with Dr. Toro. Pt denies SI or HI at this time. No further complaints. Objective - Vital Signs/Intake and Output Vital Signs (last 24 hours): Temp Pulse Resp BP Pulse Ox 98.4 F 58 L 18 125/69 98 01/09/17 11:23 01/09/17 08:07 01/09/17 08:07 01/09/17 08:07 01/09/17 08:07 Intake and Output: 01/09/17 01/09/17 06:59 18:59 Intake Total 1160 240 Balance 1160 240 - Medications Medications: Current Medications Amlodipine Besylate (Norvasc) 5 mg PO DAILY [facility] Last Admin: 01/07/17 18:20 Dose: 5 mg Bupropion HCl (Wellbutrin Xl) 150 mg PO DAILY [facility] Chlordiazepoxide (Librium) 50 mg PO TID [facility] PRN Reason: Protocol Last Admin: 01/09/17 13:57 Dose: 50 mg Duloxetine HCl (Cymbalta) 20 mg PO BID [facility] Last Admin: 01/09/17 09:37 Dose: 20 mg Heparin Sodium (Porcine) (Heparin) 5,000 units SC Q8 [facility] PRN Reason: Protocol Last Admin: 01/09/17 13:57 Dose: 5,000 units Sodium Chloride (Sodium Chloride 0.9%) 1,000 mls @ 150 mls/hr IV .Q6H40M [facility] Last Admin: 01/09/17 09:32 Dose: Not Given Ibuprofen (Motrin Tab) 400 mg PO Q6H PRN PRN Reason: Pain, Mild (1-3) Lorazepam (Ativan) 2 mg IVP Q4H PRN; Protocol PRN Reason: Anxiety Last Admin: 01/09/17 05:04 Dose: 2 mg Ondansetron HCl (Zofran Inj) 4 mg IVP Q6H PRN PRN Reason: Nausea/Vomiting Last Admin: 01/05/17 17:50 Dose: 4 mg Pantoprazole Sodium (Protonix Ec Tab) 40 mg PO 0600 [facility] Last Admin: 01/09/17 05:04 Dose: 40 mg Quetiapine Fumarate (Seroquel) 50 mg PO HS [facility] PRN Reason: Protocol - Labs Labs: 01/08/17 01:00 01/09/17 09:50 PT 14.8 SECONDS (9.4-12.5) H 01/04/17 06:00 INR 1.34 (0.93-1.08) H 01/04/17 06:00 APTT 31.1 Seconds (25.1-36.5) 01/04/17 06:00 - Additional Findings Additional findings: Phys Exam: VS as below Const'l: +Pt extubated, now AAOX4, mildly restless Head/Neck: +Pt has coronal sutures on the right side of his head; neck supple , no jvd, trachea midline, carotid midline, no cervical/head mass Eyes: afshin, nonicteric sclera, eom intact ENT: auditory acuity grossly intact, throat not congested, no nasal deformity Cardio: rrr, no m/r/g, no carotid bruit, nml s1, s2 Pulm: no accessory muscle use, equal nml breath sounds bilaterally, ctab Abd: s/nt/nd, nbs x 4 q, no palpable masses Derm: no rashes, no ulcers, no lesions Extr: no edema, no cyanosis, no calf tenderness, no lesions, no varicosities Neuro: cn II-XII grossly intact, ue and le 5/5 muscle strength bilaterally, no los ue, le bilaterally and core Assessment and Plan - Assessment and Plan (Free Text) Assessment: A/P 36 y/o M with past medical history of IVDA who presents with AMS secondary to multisubstance overdose in the setting of respiratory failure. UDS positive for cocaine, benzo, marijuana, opiate, barbiturate, tylenol. Fevers on 01/08 between midnight and 2A Acute Fever - CXR negative, lactic acid negative, PCT negative - Last fever > 36 hours ago: 2A on 01/08 (100.7). However, was at 99.4 yesterday at 4P. As such, will monitor for another 24 hours and obtain ID c/s, and another set of blood cultures. - Blood cultures pending, initial cultures negative AMS, likely 2/2 substance abuse - Pt extubated, icu d/c to tele - Neuro check q4h, Aspiration precaution, Head of bed elevated 30 degrees, Seizure precaution - LR 100 mls/hr - d/c'd - 1 on 1 Isolation - Aspiration, Seizure precautions; Vital signs q4, HOB 30 degrees Elevated Bilirubin - Resolved - T. Bili: 3.6 initially, decreased to 1.1 - Hep panel: negative Substance abuse (IVDA) - HIV: negative - Psych c/s: Dr. Toro - Methadone 35 today, wean by 5 silvio Suicidal Ideation - Psych consult PPX - Protonix/SCDs Dispo: Will await blood culture results and ID C/s recommendations. Patient otherwise medically stable for discharge to Psychiatry Unit <Isael Fung - Last Filed: 01/09/17 19:59> Objective - Vital Signs/Intake and Output Vital Signs (last 24 hours): Temp Pulse Resp BP Pulse Ox 98.6 F 77 20 103/47 L 96 01/09/17 15:59 01/09/17 15:59 01/09/17 15:59 01/09/17 15:59 01/09/17 15:59 Intake and Output: 01/09/17 01/10/17 18:59 06:59 Intake Total 240 Balance 240 - Medications Medications: Current Medications Amlodipine Besylate (Norvasc) 5 mg PO DAILY [facility] Last Admin: 01/07/17 18:20 Dose: 5 mg Bupropion HCl (Wellbutrin Xl) 150 mg PO DAILY [facility] Chlordiazepoxide (Librium) 50 mg PO TID [facility] PRN Reason: Protocol Last Admin: 01/09/17 17:45 Dose: 50 mg Duloxetine HCl (Cymbalta) 20 mg PO BID [facility] Last Admin: 01/09/17 17:45 Dose: 20 mg Heparin Sodium (Porcine) (Heparin) 5,000 units SC Q8 [facility] PRN Reason: Protocol Last Admin: 01/09/17 13:57 Dose: 5,000 units Sodium Chloride (Sodium Chloride 0.9%) 1,000 mls @ 150 mls/hr IV .Q6H40M [facility] Last Admin: 01/09/17 17:41 Dose: 150 mls/hr Ceftriaxone Sodium (Rocephin 2 Gm Ivpb) 2 gm in 100 mls @ 100 mls/hr IVPB DAILY [facility] PRN Reason: Protocol Ibuprofen (Motrin Tab) 400 mg PO Q6H PRN PRN Reason: Pain, Mild (1-3) Lorazepam (Ativan) 2 mg IVP Q4H PRN; Protocol PRN Reason: Anxiety Last Admin: 01/09/17 19:05 Dose: 2 mg Ondansetron HCl (Zofran Inj) 4 mg IVP Q6H PRN PRN Reason: Nausea/Vomiting Last Admin: 01/05/17 17:50 Dose: 4 mg Pantoprazole Sodium (Protonix Ec Tab) 40 mg PO 0600 [facility] Last Admin: 01/09/17 05:04 Dose: 40 mg Quetiapine Fumarate (Seroquel) 50 mg PO HS [facility] PRN Reason: Protocol - Labs Labs: 01/08/17 01:00 01/09/17 09:50 PT 14.8 SECONDS (9.4-12.5) H 01/04/17 06:00 INR 1.34 (0.93-1.08) H 01/04/17 06:00 APTT 31.1 Seconds (25.1-36.5) 01/04/17 06:00 Attending/Attestation - Attestation I have personally seen and examined this patient.: Yes I have fully participated in the care of the patient.: Yes I have reviewed all pertinent clinical information, including history, physical exam and plan: Yes Notes (Text): 01/09/17 19:56 Patient seen and examined independently at bedside.labs, vitals and notes reviewed. Febrile episodes and +UA with recently abnormal LFTs. Patient is a poor historian with behavioral health issues ongoing. Empiric antibiotic coverage initiated and cultures re-drawn. ID consult requested. Continue 1:1 and Agree with the plan of care outlined by the resident.
--- NOTE | 2017-01-09 20:55 | CON ---
DATE: HISTORY OF PRESENT ILLNESS: The patient is a 36-year-old white male with long history of polysubstance dependence who was brought into the ER status post overdose at home. Apparently, the patient tried to overdose on his medications of Xanax, Klonopin and Tylenol as well as barbiturates depression as well as grief related, recent overdose and of his . The patient is being medically optimized before his eventual voluntary transfer to psychiatric unit for stabilization. Psychiatrist is following up with him and I read Dr. Anderson's note and met the patient at the bedside. The patient remains alert and oriented to month, year, and circumstances as well as location. He reports last year or so, his mood "was not too bad" though remains depressed. He has "ups and downs." He is not hopeless and he does deny having any active suicidal thoughts right now; however, he remains depressed. The patient is coherent and responsive or relevant and consistent. He denies hallucinations and does not appear to be responding to internal stimuli. The patient's intentions were not elicited. Thus far he is tolerating his medications, denies side effects, sleepless, restless last night. VITAL SIGNS AND LABORATORY DATA: Reviewed by this provider. RELEVANT PSYCHIATRIC MEDICATIONS: Include, Librium 50 mg p.o. t.i.d., Cymbalta 20 mg p.o. b.i.d. and Ativan 2 mg IV q.4 h. p.r.n. IMPRESSION: I agree with Dr. Anderson's impression we need to rule out mood spectrum disorder, rule out bipolar disorder. The patient has polysubstance dependence and likely a contribution as substance-induced mood disorder is presenting at this time. He is status post suicide attempt and requires further psychiatric stabilization. We will continue with current treatment and plan and medical team is to taper the patient from benzodiazepines as tolerated. Methadone needs to be decreased by 5 mg daily. We will initiate Wellbutrin and Seroquel for the patient. The patient reported continued depression and issues with sleep last night. Psychiatry will continue to followup, but plan is for the patient to be transferred voluntarily to the inpatient psychiatric unit once he is medically stabilized. Omi Yang MD [facility] # [id number]
[2017-01-09] MEDS: cefTRIAXone 2 GM IN NS 2 GM/100 ML BAG IVPB SCH (23:06)
[2017-01-10] MEDS ORDERED: Benzocaine/Menthol (Cepacol) Lozenge MT ONE (02:28)
[2017-01-10] MEDS: Pantoprazole 40 mg EC Tab PO SCH (06:12)
[2017-01-10] MEDS: Sodium Chloride 0.9% 1,000 ML IV SCH (06:19)
[2017-01-10 06:50] LABS: ALKALINE PHOSPHATASE 65 U/L (38-126); ALT/SGPT 75 U/L (7-56); AST/SGOT 51 U/L (17-59); BILIRUBIN,TOTAL 0.4 mg/dL (0.2-1.3); BLOOD UREA NITROGEN 19 mg/dL (7-21); CALCIUM 8.2 mg/dL (8.4-10.5); CARBON DIOXIDE 35 mmol/L (21-33); CHLORIDE 103 mmol/L (98-107); GFR AFRICAN-AMERICAN > 60; GLUCOSE,RANDOM 92 mg/dL (70-110); POTASSIUM 3.7 mmol/L (3.6-5.0); SODIUM 142 mmol/L (132-148); TOTAL PROTEIN 5.4 g/dL (5.8-8.3)
[2017-01-10 07:08] LABS: BASO # 0.01 K/mm3 (0.0-2.0); BASO % 0.2 % (0.0-3.0); EOS # 0.2 (0.0-0.7); EOS % 2.8 % (1.5-5.0); GRAN # 3.44 (1.4-6.5); GRAN % 60.7 % (50.0-68.0); HEMATOCRIT 35.8 % (42.0-52.0); LYMPH # 1.4 (1.2-3.4); LYMPH % 23.9 % (22.0-35.0); MEAN CORPUSCULAR HEMOGLOBIN 30.4 pg (25.0-35.0); MEAN CORPUSCULAR HGB CONC 33.2 g/dl (31.0-37.0); MEAN PLATELET VOLUME 9.5 fl (7.0-11.0); MONO # 0.7 (0.1-0.6); MONO % 12.4 % (1.0-6.0); WHITE BLOOD COUNT 5.7 10^3/ul (4.5-11.0)
[2017-01-10 08:07] LABS: MEAN CELL VOLUME 91.3 fl (80.0-105.0)
[2017-01-10 08:09] VITALS: BP 111/60; PULSE 70; TEMP 97.7; O2SAT 95
[2017-01-10] MEDS ORDERED: buPROPion 150 mg/24 Hours XL Tab PO SCH (10:00)
[2017-01-10] MEDS: cefTRIAXone 2 GM IN NS 2 GM/100 ML BAG IVPB SCH (10:06)
--- NOTE | 2017-01-10 14:24 | CON ---
HISTORY OF PRESENT ILLNESS: The patient is a 36-year-old male, long history of polysubstance dependence, who was brought into the ER after a overdose at home and apparent suicide attempt. Overdose was related to depression and grief due to recent overdose and of his . The patient is being medically optimized before his eventual voluntary transfer psychiatric unit for stabilization. Dr. Anderson has been following up with the patient and I met with him yesterday as well as today. The patient remains alert and oriented to month, year and circumstances as well as location. Again, he reports that his mood is "not too bad" and still has ups and downs. He is not hopeless and he denies having any active suicidal thoughts right now, though he does remain depressed. The affect is constricted. Does present as fairly reliable. He is coherent and responsive, relevant and consistent. He continues to deny hallucinations or any type of perceptual disorders. He does not appear to be responding to internal stimuli. There were no delusions that were elicited. Thus far, he is tolerating his medications including Wellbutrin and Seroquel that was for last night. The patient does report that his sleep was much improved tonight versus yesterday. Vital signs and laboratory data were reviewed by this provider. MEDICATIONS: Relevant psychiatric medications include Wellbutrin 150 mg p.o. daily, Librium 50 mg p.o. t.i.d., Cymbalta 20 mg p.o. b.i.d., Wellbutrin XL 150 mg p.o. daily started yesterday and Seroquel 50 mg p.o. at bedtime scheduled. IMPRESSION: Still, I agree with Dr. Anderson's impression. We need to rule out mood spectrum disorder, rule out bipolar disorder. The patient has a history of polysubstance dependence and there is a very likely contribution of substance-induced mood disorder presenting at this time. His first suicide attempt in the context of serious stressor of his 's recently due to overdose and he does require psychiatric stabilization once he is medically optimized. RECOMMENDATIONS: We will continue with current treatment and plan. Medical team is to continue to taper the patient from benzodiazepines as tolerated. Methadone again will be decreased at 5 mg daily and we will continue with Wellbutrin and Seroquel for the patient as he continues to be tolerating these medications well. Psychiatry will continue to follow up and plan is still for the patient to be transferred voluntarily to the inpatient psychiatric unit once he is medically cleared. Omi Yang MD
--- NOTE | 2017-01-10 18:59 | CP.PCM.DIS ---
Provider - Provider Date of Admission: 01/02/17 19:57 Attending physician: Rolanda Marsh MD Consults: Dr. Ayala: ICU Dr. Perez: Neuro Dr. Nagy: Neuro Dr. Toro: Psych Time Spent in preparation of Discharge (in minutes): 45 Hospital Course - Lab Results Lab Results: Micro Results 01/09/17 11:40 Blood Blood Culture - Preliminary NO GROWTH AFTER 24 HOURS 01/09/17 11:15 Blood Blood Culture - Preliminary NO GROWTH AFTER 24 HOURS 01/08/17 11:00 Blood Blood Culture - Preliminary NO GROWTH AFTER 48 HOURS 01/08/17 10:00 Blood Blood Culture - Preliminary NO GROWTH AFTER 48 HOURS 01/09/17 12:20 Urine Urine Culture - Preliminary Gram Negative 01/03/17 06:30 Blood Blood Culture - Final NO GROWTH AFTER 5 DAYS 01/03/17 06:30 Blood Gram Stain - Final TEST NOT PERFORMED 01/03/17 06:00 Blood Blood Culture - Final NO GROWTH AFTER 5 DAYS 01/03/17 06:00 Blood Gram Stain - Final TEST NOT PERFORMED 01/03/17 02:30 Naris MRSA Culture (Admit) - Final MRSA NOT DETECTED 01/03/17 07:34 Urine,Ontiveros Urine Culture - Final No Growth (<1,000 CFU/ML) Most Recent Lab Values WBC 5.7 10^3/ul (4.5-11.0) D 01/10/17 05:30 RBC 3.92 10^6/uL (3.5-6.1) 01/10/17 05:30 Hgb 11.9 g/dL (14.0-18.0) L D 01/10/17 05:30 Hct 35.8 % (42.0-52.0) L 01/10/17 05:30 MCV 91.3 fl (80.0-105.0) D 01/10/17 05:30 MCH 30.4 pg (25.0-35.0) 01/10/17 05:30 MCHC 33.2 g/dl (31.0-37.0) 01/10/17 05:30 RDW 14.0 % (11.5-14.5) 01/10/17 05:30 Plt Count 197 10^3/uL (120.0-450.0) 01/10/17 05:30 MPV 9.5 fl (7.0-11.0) 01/10/17 05:30 Gran % 60.7 % (50.0-68.0) 01/10/17 05:30 Lymph % (Auto) 23.9 % (22.0-35.0) 01/10/17 05:30 Giles % (Auto) 12.4 % (1.0-6.0) H 01/10/17 05:30 Eos % (Auto) 2.8 % (1.5-5.0) 01/10/17 05:30 Baso % (Auto) 0.2 % (0.0-3.0) 01/10/17 05:30 Gran # 3.44 (1.4-6.5) 01/10/17 05:30 Lymph # 1.4 (1.2-3.4) 01/10/17 05:30 Giles # 0.7 (0.1-0.6) H 01/10/17 05:30 Eos # 0.2 (0.0-0.7) 01/10/17 05:30 Baso # 0.01 K/mm3 (0.0-2.0) 01/10/17 05:30 PT 14.8 SECONDS (9.4-12.5) H 01/04/17 06:00 INR 1.34 (0.93-1.08) H 01/04/17 06:00 APTT 31.1 Seconds (25.1-36.5) 01/04/17 06:00 pCO2 36 mm/Hg (35-45) 01/05/17 06:35 pO2 63 mm/Hg (30-55) H 01/08/17 01:00 HCO3 24.5 mmol/L (21-28) 01/05/17 06:35 ABG pH 7.44 (7.35-7.45) 01/05/17 06:35 ABG Total CO2 25.6 mmol.L (22-28) 01/05/17 06:35 ABG O2 Saturation 99.1 % (95-98) H 01/05/17 06:35 ABG O2 Content 19.0 ML/dl (15-23) 01/03/17 09:45 ABG Base Excess 0.6 mmol/L (-2.0-3.0) 01/05/17 06:35 ABG Hemoglobin 13.9 g/dL (11.7-17.4) 01/03/17 09:45 ABG Carboxyhemoglobin 2.1 % (0.5-1.5) H 01/03/17 09:45 POC ABG HHb (Measured) 0.8 % (0-5) 01/03/17 09:45 ABG Methemoglobin 1.0 % (0.0-3.0) 01/03/17 09:45 ABG O2 Capacity 19.2 mL/dl (16-24) 01/03/17 09:45 ABG Potassium 3.2 mmol/L (3.6-5.2) L 01/05/17 06:35 VBG pH 7.49 (7.32-7.43) H 01/08/17 01:00 VBG pCO2 44.0 (40-60) 01/08/17 01:00 VBG HCO3 33.5 mmol/l (21-28) H 01/08/17 01:00 VBG Total CO2 34.9 mmol.L (22-28) H 01/08/17 01:00 VBG O2 Sat (Calc) 96.0 % (40-65) H 01/08/17 01:00 VBG Base Excess 9.0 mmol/L (0.0-2.0) H 01/08/17 01:00 VBG Potassium 3.2 mmol/L (3.6-5.2) L 01/08/17 01:00 Hgb O2 Saturation 96.1 % (95.0-98.0) 01/03/17 09:45 Sodium 137.0 mmol/L (132-148) 01/08/17 01:00 Chloride 100.0 mmol/L (98-107) 01/08/17 01:00 Glucose 129 mg/dl (75-110) H 01/08/17 01:00 Lactate 1.1 mmol/L (0.7-2.1) 01/08/17 01:00 FiO2 21.0 % 01/08/17 01:00 Sodium 142 mmol/L (132-148) 01/10/17 05:30 Potassium 3.7 mmol/L (3.6-5.0) 01/10/17 05:30 Chloride 103 mmol/L (98-107) 01/10/17 05:30 Carbon Dioxide 35 mmol/L (21-33) H 01/10/17 05:30 Anion Gap 7 (10-20) L 01/10/17 05:30 BUN 19 mg/dL (7-21) 01/10/17 05:30 Creatinine 1.1 mg/dl (0.8-1.5) 01/10/17 05:30 Est GFR ( Amer) > 60 01/10/17 05:30 Est GFR (Non-Af Amer) > 60 01/10/17 05:30 POC Glucose (mg/dL) 100 mg/dL (65-110) 01/03/17 11:22 Random Glucose 92 mg/dL (70-110) 01/10/17 05:30 Calcium 8.2 mg/dL (8.4-10.5) L 01/10/17 05:30 Phosphorus 2.0 mg/dL (2.5-4.5) L 01/05/17 06:00 Magnesium 1.9 mg/dL (1.7-2.2) 01/05/17 06:00 Total Bilirubin 0.4 mg/dL (0.2-1.3) 01/10/17 05:30 Direct Bilirubin 0.6 mg/dL (0.0-0.4) H 01/03/17 18:30 AST 51 U/L (17-59) 01/10/17 05:30 ALT 75 U/L (7-56) H 01/10/17 05:30 Alkaline Phosphatase 65 U/L (38-126) 01/10/17 05:30 Total Creatine Kinase 367 U/L (35-230) H 01/06/17 05:20 CK-MB (CK-2) 1.0 ng/mL (0.0-3.6) 01/06/17 05:20 CK-MB (CK-2) % 0.9 % (2.5-3.0) L 01/03/17 13:10 Troponin I < 0.01 ng/mL 01/03/17 13:10 Total Protein 5.4 g/dL (5.8-8.3) L 01/10/17 05:30 Albumin 2.7 g/dL (3.0-4.8) L 01/10/17 05:30 Globulin 2.7 gm/dL 01/10/17 05:30 Albumin/Globulin Ratio 1.0 (1.1-1.8) L 01/10/17 05:30 Procalcitonin 0.07 NG/ML (0.19-0.49) L 01/08/17 10:00 Arterial Blood Potassium 3.2 mmol/L (3.6-5.2) L 01/05/17 06:35 Venous Blood Potassium 3.2 mmol/L (3.6-5.2) L 01/08/17 01:00 Urine Color Yellow (YELLOW) 01/08/17 23:10 Urine Appearance Clear (CLEAR) 01/08/17 23:10 Urine pH 6.0 (4.7-8.0) 01/08/17 23:10 Ur Specific [place] 1.015 (1.005-1.035) 01/08/17 23:10 Urine Protein Trace mg/dL (<30 mg/dL) H 01/08/17 23:10 Urine Glucose (UA) Negative mg/dL (NEGATIVE) 01/08/17 23:10 Urine Ketones Negative mg/dL (NEGATIVE) 01/08/17 23:10 Urine Blood Moderate (NEGATIVE) H 01/08/17 23:10 Urine Nitrate Negative (NEGATIVE) 01/08/17 23:10 Urine Bilirubin Negative (NEGATIVE) 01/08/17 23:10 Urine Urobilinogen 0.2 E.U./dL (<1 E.U./dL) 01/08/17 23:10 Ur Leukocyte Esterase Small [place]/uL (NEGATIVE) H 01/08/17 23:10 Urine RBC 15 - 20 /hpf (0-2) 01/08/17 23:10 Urine WBC 10 - 15 /hpf (0-6) 01/08/17 23:10 Ur Epithelial Cells 0 - 2 /hpf (0-5) 01/08/17 23:10 Salicylates < 1 mg/dL (2.0-20.0) L 01/02/17 18:50 Urine Opiates Screen Positive (NEGATIVE) H 01/02/17 18:50 Urine Methadone Screen Negative (NEGATIVE) 01/02/17 18:50 Acetaminophen < 10.0 ug/ml (10.0-20.0) L 01/04/17 06:00 Ur Barbiturates Screen Positive (NEGATIVE) H 01/02/17 18:50 Ur Phencyclidine Scrn Negative (NEGATIVE) 01/02/17 18:50 Ur Amphetamines Screen Negative (NEGATIVE) 01/02/17 18:50 U Benzodiazepines Scrn Positive (NEGATIVE) 01/02/17 18:50 U Oth Cocaine Metabols Positive (NEGATIVE) H 01/02/17 18:50 U Cannabinoids Screen Positive (NEGATIVE) H 01/02/17 18:50 Alcohol, Quantitative < 10 mg/dL (0-10) 01/02/17 18:50 Hepatitis A IgM Ab Negative (NEGATIVE) 01/02/17 21:45 Hep Bs Antigen Negative (NEGATIVE) 01/02/17 21:45 Hep B Core IgM Ab Negative (NEGATIVE) 01/02/17 21:45 Hepatitis C Antibody Negative (NEGATIVE) 01/02/17 21:45 HIV 1&2 Antibody Screen Negative (NEGATIVE) 01/02/17 21:45 - Hospital Course Hospital Course: HPI on admission: This is a 36Y M with past medical history of IV drug abuse who was brought in by ambulance for altered mental status and possible drug overdose. Patient is awake, but lethargic. History was obtained through ED note and previous records. Patient's brother went to his house and found the patient to be confused and altered. EMS was called and he was brought into ED. He was found to be positive for multiple substances on UDS, including Tylenol. Patient was given Narcan and maintained his airway on nasal cannula. Head CT and CXR were negative.Poison control was notified and Acetadote was started. Past medical history: IV drug abuse (Heroin, cocaine), anxiety/depression, ADHD Past surgical history: None Home meds: unobtainable Allergies: NKDA Social history: + for cocaine, benzo, barbiturate, opiate, marijuana on UDS, + for tobacco use. Family history: non-contributory Hospital course: Throughout this stay, the following imaging studies were ordered 01/03, and 01/08: 3 CXR's: No acute disease 01/03: 1 CXR: ET Tube placed appropriately as well as NG tube, improvement in linear atelectasis at right lung base from before 01/03: 1 CXR: Linear atelectasis at R lung base 01/02: CXR: No acute disease 01/02: CT Head: No intracranial hemorrhage And the following significant lab abnormalities were noted: Hypokalemia: 01/07, 01/08 ABG: PCO2 31, 33 on 01/03; pH 7.49 on 01/08, but 7.3 on 01/03 Lactate: Negative PCT: Remained negative X 2 UA: Small leuk esterase; mod blood ALT: Trended from 39-->72-->75 While at the hospital, patient who had originally come in with AMS and had to be intubated, was finally taken off vent and became AAOX4. Patient was notified by his family at the hospital that his had passed. Pt also admitted to attempting suicide "in a moment of passion," and stated that while at the hospital he was not SI or HI. Patient was also found to be withdrawing from suboxone at the hospital. He was given 25 mg of Methadone on day 1 and day 2 of withdrawals, but then had to have an increased dose of 40 due to not properly controlling his withdrawals. A weaning dose was started on the patient, which he tolerated well. Finally, patient spiked a fever 2 days before being discharged, and was started on Rocephin with ID consultation. Initial blood cultures, PCT's, and CXR's were negative, but U Cx showed gram negative rods. Per ID, pt was given a 5 day script of Vantin 200 and was deemed stable for discharge. A/P on day of discharge: 36 y/o M with past medical history of IVDA who presents with AMS secondary to multisubstance overdose in the setting of respiratory failure. UDS positive for cocaine, benzo, marijuana, opiate, barbiturate, tylenol. Fevers on 01/08 between midnight and 2A Acute Fever - CXR negative, lactic acid negative, PCT negative - Last fever > 36 hours ago: 2A on 01/08 (100.7). However, was at 99.4 yesterday at 4P. As such, will monitor for another 24 hours and obtain ID c/s, and another set of blood cultures. - Blood cultures pending, initial cultures negative AMS, likely 2/2 substance abuse - Pt extubated, icu d/c to tele - Neuro check q4h, Aspiration precaution, Head of bed elevated 30 degrees, Seizure precaution - LR 100 mls/hr - d/c'd - 1 on 1 Isolation - Aspiration, Seizure precautions; Vital signs q4, HOB 30 degrees Elevated Bilirubin - Resolved - T. Bili: 3.6 initially, decreased to 1.1 - Hep panel: negative Substance abuse (IVDA) - HIV: negative - Psych c/s: Dr. Toro - Methadone 35 today, wean by 5 everday Suicidal Ideation - Psych consult: inpatient admission PPX - Protonix/SCDs Discharge Exam - Head Exam Head Exam: ATRAUMATIC, NORMAL INSPECTION, NORMOCEPHALIC - Additional Findings Additional findings: Phys Exam: VS as below Const'l: +Pt extubated, now AAOX4, mildly restless Head/Neck: +Pt has coronal sutures on the right side of his head; neck supple , no jvd, trachea midline, carotid midline, no cervical/head mass Eyes: afshin, nonicteric sclera, eom intact ENT: auditory acuity grossly intact, throat not congested, no nasal deformity Cardio: rrr, no m/r/g, no carotid bruit, nml s1, s2 Pulm: no accessory muscle use, equal nml breath sounds bilaterally, ctab Abd: s/nt/nd, nbs x 4 q, no palpable masses Derm: no rashes, no ulcers, no lesions Extr: no edema, no cyanosis, no calf tenderness, no lesions, no varicosities Neuro: cn II-XII grossly intact, ue and le 5/5 muscle strength bilaterally, no los ue, le bilaterally and core Discharge Plan - Follow Up Plan Condition: SERIOUS Disposition: DISCHARGE TO PSYCH HOSPITAL Instructions: Acetaminophen Overdose (DC), Acetaminophen Overdose (GEN), Depression (DC) Referrals: [facility], [Non-Staff] -
[2017-01-10] MEDS ORDERED: Cefpodoxime (Vantin) 200 mg Tab PO SCH (22:00)
--- NOTE | 2017-01-10 22:46 | CON ---
DATE: 01/10/2017 CHIEF COMPLAINT: Fever x1 day. HISTORY OF PRESENT ILLNESS: This is a 36-year-old male who is admitted on 01/02/2017 to the emergency room by with a diagnosis of acetaminophen overdose, opiate overdose. The patient has been in the hospital. The patient did have hypothermia in emergency room with dyspnea. He did have a temperature in the hospital of 102 on 01/08. The patient had been admitted on the and had no fevers, although he was hypothermic suggests these are nosocomial fever. At this time, he denies any chest pain, shortness of breath, cough, hemoptysis, abdominal pain, diarrhea or constipation. PAST MEDICAL HISTORY: Significant for depression, anxiety, substance abuse, cocaine, GERD. PAST SURGICAL HISTORY: Noncontributory. REVIEW OF SYSTEMS: Are noted. ALLERGIES: HE HAS NO KNOWN ALLERGIES. HOME MEDICATIONS: Takes no medications at home. PHYSICAL EXAMINATION: GENERAL: The patient is in bed. VITAL SIGNS: Temperature is 98. His T-max on the first was 102; respiratory rate of 20; heart rate of 87, it was up to 97; O2 saturation of 94%. HEENT: Unremarkable. NECK: Supple. LUNGS: Have decreased breath sounds. HEART: Normal S1, S2. ABDOMEN: Soft, nontender. SKIN: He has had IV access and some of the areas are erythematous. LABORATORY EXAMINATION: Reveals his white count was up to 11,100, its down to 5700 today. Hemoglobin 11. Coagulation is noted. Blood gases are reviewed. Chemistries are noted. Procalcitonin is undetectable 0.07. Urinalysis is noted 10-15 wbcs. Toxicology is reviewed. Acetaminophen levels are noted. Serology HIV is negative. Hepatitis profile is negative. Microbiology reveals he has a gram-negative elodia in the urine. Dr. Fung's note from yesterday is appreciated. The patient also had a chest x-ray which is no active disease. ASSESSMENT AND PLAN: This is a 36-year-old male who has depression, anxiety, substance abuse, cocaine abuse in the past, admitted with a history of gastroesophageal reflux disease and acetaminophen overdose and developed fevers and tachycardia and positive urinalysis with a gram-negative elodia. Sepsis with a gram-negative elodia in the urine, although at this time he has no urinary symptoms, not requiring treatment. We will repeat a urinalysis and urine culture and we will like continue the ceftriaxone at this time, pending identification of gram-negative elodia in the urine, maybe able to switch to p.o. antibiotics for a short course. The patient did have a Ontiveros catheter earlier on, early check on the repeat urinalysis and urine culture. Wilner Leach MD
--- NOTE | 2017-01-11 12:08 | PQF RESP ---
01/11/17 Dr. Rolanda Marsh, Respiratory failure is documented on progress notes of 01/04, 01/05 and on discharge summary. Please specify whether this is acute/chronic, with or without hypoxia/hypercapnia. Thank you. Clarification of your documentation is requested to better reflect the severity of illness and intensity of treatment of your patient. Indicators present [] Use of Home Oxygen [x] Respiratory rate > 28 or <8/min (Labored respirations) [] PCO2 > 50 mm Hg or (Hypercapnia) (somnolence) [] PaO2 < 60 mm Hg or Hypoxemia (confusion) [] ABG blood gas pH < 7.35 [] SpO2 < 90% sat on Room Air [] Cyanosis [x] Unable to Speak in Full Sentences [] Use of Accessory Muscles / Tripoding [] Wheezing [] Other: [] Location in the medical record that reflects the above clinical findings: [H&P] Treatment Provided: [He was intubated for airway protection ] PHYSICIAN'S RESPONSE Based on your medical judgment of the clinical indicators outlined above, are you treating this patient for a known or suspected: [] Acute Respiratory Failure (hypoxia or hypercapnia) [] Chronic Respiratory Failure (hypoxia or hypercapnia) [] Acute on Chronic Respiratory Failure (hypoxia or hypercapnia) [] Hypoxemia please specify ACUTE, CHRONIC or ACUTE on CHRONIC [x] Other acute respiratory failure secondary to overdose of drugs as per documentation. I was not physically present at that time. He was intubated for airway protection.]_ [] If unable to determine, please check the box, sign and date. Present On Admission (POA) Indicator: [] Present at the time of admission [x] Not present at the time of admission [] Clinically Undetermined In responding to this query, please exercise your independent professional judgment. The fact that a question is asked does not imply that any particular answer is desired or expected. Thank you for your clarification on this documentation. If you have any questions please call:[ ] * Thank you, [ ] psychotherapist Chronic Respiratory Failure Description: Respiratory failure is a syndrome in which the respiratory system fails in one or both of its gas exchange functions: oxygenation and carbon dioxide elimination. In theory, respiratory failure is defined as a Pa02 value of <60 mm/Hg or a PaC02 of >50 mm/Hg. However, these values may be affected by renal compensation. Respiratory failure may be acute or chronic. While acute respiratory failure is characterized by life-threatening derangement in arterial blood gases and acid-base balance, the manifestations of chronic respiratory failure are less dramatic and may not be as readily apparent. Classifications: Respiratory failure may be classified as hypoxemic (usually characterized by Pa02 of <60 mm/Hg) or hypercapnic (usually characterized by PaC02 >50 mm/Hg) and either may be acute or chronic. Chronic hypercapnic respiratory failure develops over time and allows for renal compensation and an increase in bicarbonate concentration; therefore the pH is usually only slightly decreased. The distinction between acute and chronic hypoxemic respiratory failure cannot readily be made on the basis of ABGs; the clinical markers of chronic hypoxemia, such as polythycemia or cor pulmonale suggest a long standing disorder (chronic hypoxemic respiratory failure). Clinical Indicators: dyspnea at rest or "chronic" dyspnea, concomitant conditions such as polycythemia or cor pulmonale, requirement for continuous oxygen support, forced expiratory volume in one second (FEV1) of 49 or less, pursed lip breathing, "barrel" chest, hyperinflation by CXR, muscle wasting, malnutrition/obesity, poor exercise capacity, peripheral edema, description as a "blue bloater" (usually associated with chronic, obstructive bronchitis) or "pink puffer" (usually associated with emphysema) Risks: Chronic Hypoxemic Respiratory Failure - COPD, pulmonary fibrosis, asthma , pulmonary arterial hypertension, granulomatous lung diseases, congenital heart disease, bronchiectasis, kyphoscoliosis, obesity; Chronic Hypercapnic Respiratory Failure - COPD, severe asthma, myasthenia gravis, polyneuropathy, polio, head and cervical spine injuries, obesity hypoventilation syndrome. Treatment: supplemental oxygen, bronchodilators, corticosteroids, adequate nutrition, lung transplant References: Am. J. Respir. Crit. Care Med. "Global Strategy for the Diagnosis, Management and Prevention of COPD: GOLD Exectuive Summary," Ghazal Crespo Anzueto - 2007; Proceedings of the [employer] "Mechanisms and Measurements of Dyspnea in COPD," Jon - 2006; WebMD; Respiratory Failure, Colten Anderson MD - 08/2005; Harley's Principles of Internal Medicine, 17th edition. Acute Respiratory Failure Acute Respiratory Failure indicators include: ~Respirations >28 ~Air hunger ~Use of accessory muscles of respiration ~Inability to speak in full sentences Cyanosis ~Pulse ox <90% RA or <95% on O2 pH <7.35 or >7.45 ~pO2 < 60 mm Hg (or 10mm below COPD patient's baseline) ~pCO2 >50mm Hg (or 10mm above COPD patient's baseline) "Respiratory failure may be assigned as a principal diagnosis when it is the condition established after study to be chiefly responsible for occasioning admission to the hospital. The fact that the respiratory failure was managed without intubation and mechanical ventilation does not preclude its use." [facility] 1988, p. 7 MTDD
== END 2017-01-10 13:37 | DRG 582 ==
LOC: ED 18:33 → ERH 19:57 → CCU 21:20 → 5RNO 01-07 13:07
PROVIDERS: ADMIT Internal Medicine; ATTEND Hospitalist
PROC: 0BH17EZ Insertion of Endotracheal Airway into Trachea, Via Natural or Artificial Opening (ICD-10-PCS; principal; 2017-01-03)
PROC: 5A1945Z Respiratory Ventilation, 24-96 Consecutive Hours (ICD-10-PCS; 2017-01-03)
DX: T39.1X2A Poisoning by 4-Aminophenol derivatives, intentional self-harm, initial encounter (principal); J96.00 Acute respiratory failure, unspecified whether with hypoxia or hypercapnia; G92 Toxic encephalopathy; R17 Unspecified jaundice; M62.82 Rhabdomyolysis; E87.8 Other disorders of electrolyte and fluid balance, not elsewhere classified; E87.6 Hypokalemia; F14.10 Cocaine abuse, uncomplicated; F19.94 Other psychoactive substance use, unspecified with psychoactive substance-induced mood disorder; J98.11 Atelectasis; L03.211 Cellulitis of face; T40.602A Poisoning by unspecified narcotics, intentional self-harm, initial encounter; T42.4X2A Poisoning by benzodiazepines, intentional self-harm, initial encounter; F31.9 Bipolar disorder, unspecified; F90.9 Attention-deficit hyperactivity disorder, unspecified type; G25.81 Restless legs syndrome; K21.9 Gastro-esophageal reflux disease without esophagitis; Z72.0 Tobacco use; F41.9 Anxiety disorder, unspecified; R40.2414 Glasgow coma scale score 13-15, 24 hours or more after hospital admission; R50.9 Fever, unspecified

== ENCOUNTER 2017-01-10 13:40 | Inpatient (IN) | payer MEDICAID ==
--- NOTE | 2017-01-10 16:19 | PCM.BM ---
<Chet Zarate - Last Filed: 01/10/17 16:18> Treatment Plan Problems - Problems identified on initial assessmt Depressive Symptoms Date Initiated: 01/10/17 Time Initiated: 16:18 Assessment reference: NA Status: Active Priority: 1 Ineffective Coping Date Initiated: 01/10/17 Time Initiated: 16:18 Assessment reference: NA Status: Active Priority: 2 Treatment assets and liabiliti Patient Assests: cooperative, self-reliant, ADL independent, good support system , negotiates basic needs, cognitively intact Patient Liabilities: substance abuse - Milieu Protocol Maintain good personal hygiene: daily Encourage regular showers, daily Remind patient to perform daily oral care, daily Assist patient to perform ADL's Maintain personal safety: every shift Educate patient to report safety concerns to staff, every shift Monitor environment for contraband/sharps Medication safety: Monitor for expected outcome, potential side effects: every shift, Assess barriers to learning: every shift, Assess readiness for medication education: every shift Discharge/Continuing Care - Education Needs Education Needs: Patient Medication - Discharge Discharge Criteria: Tolerates medication w/o severe side effects, Free of Suicidal thoughts, Normal sleep pattern <Muna Anderson - Last Filed: 01/11/17 14:57> - Diagnosis (1) Bipolar 1 disorder Status: Acute Interventions: 01/11/17 10:26 Psychoeducation Psychopharmacology/adjustment of medications as needed/ monitoring possible side effect abilify as a mood stabilizer Evaluate pt on daily basis Compliance with medications and follow up appointments Suicide and homicide risk assessment and prevention, coping strategies, safety plan Relapse prevention Reduction of symptoms Improve functional status Family involvement, pt wants his cousin and ex- and daughter to be involved into his care, will call for a family meeting As outpatient: cognitive behavioral therapy 01/11/17 14:57 (2) Polysubstance dependence including opioid type drug with complication, episodic abuse Status: Acute Interventions: 01/11/17 10:26 Monitoring withdrawal symptoms, no physical signs of withdrawal Medical detoxification Pharmacotherapy for alcohol/benzos/opioid dependence Maintaining sobriety Relapse prevention Possible rehabilitation, but pt does not want to go to inpatient rehab now Motivational interviewing 12-step programs: AA meetings 01/11/17 15:10 <Maryam Mensah - Last Filed: 01/16/17 08:54> Family Contact Family involvement: Family/SO is involved Family contact: Patient agrees to contact
[2017-01-10] MEDS ORDERED: Alum-Mag Hydrox-Simethicone Susp (30 mL) PO PRN (16:23)
[2017-01-10] MEDS ORDERED: Magnesium Hydroxide Susp 30 ml UD PO PRN (16:24)
[2017-01-11] MEDS: Pantoprazole 40 mg EC Tab PO SCH (07:07)
[2017-01-11] MEDS ORDERED: buPROPion 150 mg/24 Hours XL Tab PO SCH (08:00)
[2017-01-11 09:57] LABS: BASO # 0.01 K/mm3 (0.0-2.0); BASO % 0.2 % (0.0-3.0); EOS # 0.1 (0.0-0.7); EOS % 1.6 % (1.5-5.0); GRAN # 3.87 (1.4-6.5); LYMPH # 1.8 (1.2-3.4); LYMPH % 28.1 % (22.0-35.0); MEAN CELL VOLUME 92.3 fl (80.0-105.0); MEAN CORPUSCULAR HEMOGLOBIN 30.9 pg (25.0-35.0); MEAN CORPUSCULAR HGB CONC 33.4 g/dl (31.0-37.0); MEAN PLATELET VOLUME 9.5 fl (7.0-11.0); MONO # 0.7 (0.1-0.6); MONO % 10.1 % (1.0-6.0); RED CELL DISTRIBUTION WIDTH 13.8 % (11.5-14.5); WHITE BLOOD COUNT 6.4 10^3/ul (4.5-11.0)
[2017-01-11 10:05] LABS: ALB/GLOB RATIO 1.2 (1.1-1.8); ALKALINE PHOSPHATASE 73 U/L (38-126); ALT/SGPT 76 U/L (7-56); AST/SGOT 31 U/L (17-59); BILIRUBIN,TOTAL 0.6 mg/dL (0.2-1.3); BLOOD UREA NITROGEN 22 mg/dL (7-21); CALCIUM 8.7 mg/dL (8.4-10.5); CARBON DIOXIDE 36 mmol/L (21-33); CHLORIDE 95 mmol/L (98-107); GFR AFRICAN-AMERICAN > 60; GLUCOSE,RANDOM 77 mg/dL (70-110); POTASSIUM 4.3 mmol/L (3.6-5.0); SODIUM 140 mmol/L (132-148); TOTAL PROTEIN 5.9 g/dL (5.8-8.3)
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
[2017-01-11] MEDS: Cefpodoxime (Vantin) 200 mg Tab PO SCH (17:50)
--- NOTE | 2017-01-11 18:35 | PCM.PSYCH ---
Initial Psychiatric Evaluation - Initial Psychiatric Evaluation Type of Admission: Voluntary Legal Status: Capacity (patient has capacity to sign consent for treatment) Chief Complaint (in patient's own words): "I don't think that I will go to inpatient rehabilitation, I wouldn't see reason for that, I need to deal with my stress, right now I feel much better,I thinking clear, you guys are detoxing me from benzos, I think I will be all right". Patient's Reaction to Hospitalization: patient was transferred from the medical side for evaluation and stabilization of depressive symptoms, patient status post suicidal attempt, patient overdose on medications,and drugs, patient needs further evaluation and stabilization, transfer was uneventful. History of Present Illness and Precipitating Events: shortly patient is 36 year old male with self reported history of bipolar disorder, denied history or psychiatric inpatient admissions, patient has history of polysubstance abuse and dependence, multiple inpatient rehabs and detoxes, patient was found unresponsive at home, as per lives Department patient significant other overdose at the house resulting in bed on the scene. Initially patient was seen in the ICU, was improving was downgraded to the medical side, patient refused to sign consent for treatment on the medical side , patient was screened by [facility] for involuntary commitment , during the evaluation patient changed his mind and decided to sign himself into the psychiatric inpatient unit for further evaluation and stabilization, patient was medically cleared, was transferred overnight to the psychiatric inpatient unit, transfer was uneventful. Considering the fact that patient overdose on medications as well as drugs, in the ICU patient patient made statement that he wanted to end up his life and that is why he overdosed on multiple medications, patient needs further evaluation and stabilization as well as medication adjustment. pt was remorseful for his suicidal act, pt reported to "Happy to be alive". Patient was seen today at the treatment team meeting, patient presented much better to compare with the first interaction on the ICU unit. Patient has acceptable personal hygiene, but not shaved, flat affect, thought process is much clear, no psychotic symptoms identified. ADLs are good. Patient seems to be in denial of the of his , was fixated on his future plans, patient said that he wants to go to work, patient was blaming his for his addiction to benzodiazepines and drugs "I found that she had an affair while I was in rehab, it set me off, but now I feel better, more over I am in safe place", when was asked how he will be dealing with his stress when he will be discharged, pt said "I will be not allowed to go to the same apartment due to what happened, in any ways I will be not able to use her staff NEVER". pt said his father in law is not talking to him, "he is demented alcoholic". pt said he will stay with his cousin after discharge, "I was interviewed for a job at [employer], I want to start working". patient said that he was officially diagnosed with bipolar disorder, was on multiple mood stabilizers for example leave him "was giving me shakes and anxiety", patient did not respond well on Seroquel, patient was educated about the Abilify, patient was willing to try this medication, risk, benefits, alternatives were explained. Patient also wants to continue on Cymbalta "they said the only medication what was helpful to me, of course I hope that I will continue on Klonopin". Patient was educated if he has history of addiction most likely he will be not prescribed those medications which could gave him additional addiction. Patient verbalize understanding. patient denied hearing voices, denied seeing things, patient is not paranoid or presented to be psychotic. As per report patient has multiple detoxes and rehabs in the past but denied any history of being admitted to psychiatric inpatient unit, denied history of suicidal attempts. patient reported that his main support right now is she is ex- and his daughter. pt has h/o polysubstance abuse and dependence IV user. smoker, counseling provided, pt does not want to have a nicotine patch. family h/o: denied 01/11/17 09:40 01/11/17 09:40 Lab Results 01/11/17 09:40: Sodium 140, Potassium 4.3, Chloride 95 L, Carbon Dioxide 36 H, Anion Gap 14, BUN 22 H, Creatinine 1.2, Est GFR ( Amer) > 60, Est GFR ( Non-Af Amer) > 60, Random Glucose 77, Calcium 8.7, Total Bilirubin 0.6, AST 31, ALT 76 H, Alkaline Phosphatase 73, Total Protein 5.9, Albumin 3.2, Globulin 2.7 , Albumin/Globulin Ratio 1.2 01/11/17 09:40: WBC 6.4, RBC 4.44, Hgb 13.7 L, Hct 41.0 L, MCV 92.3, MCH 30.9, MCHC 33.4, RDW 13.8, Plt Count 261, MPV 9.5, Gran % 60.0, Lymph % (Auto) 28.1, [place] % (Auto) 10.1 H, Eos % (Auto) 1.6, Baso % (Auto) 0.2, Gran # 3.87, Lymph # 1.8, [place] # 0.7 H, Eos # 0.1, Baso # 0.01 Vital Signs Temp Pulse Resp BP 01/11/17 07:56 98.9 F 59 L 20 125/82 01/10/17 14:04 17 police wants to interview pt, will call upon discharge. Current Medications: Active Medications Generic Name Dose Route Start Last Admin Trade Name Freq PRN Reason Stop Dose Admin Al Hydrox/Mg Hydrox/Simethicone 30 ml 01/10/17 16:23 Maalox Plus 30 Ml PO DAILY PRN Indigestion / Heartburn Aripiprazole 5 mg 01/11/17 22:00 Abilify PO HS JOANNA Cefpodoxime Proxetil 200 mg 01/11/17 18:00 01/11/17 17:50 Vantin PO 01/15/17 23:59 200 mg Q12 JOANNA Administration Protocol Chlordiazepoxide 25 mg 01/11/17 13:24 01/11/17 17:50 Librium PO 25 mg TID JOANNA Administration Protocol Duloxetine HCl 20 mg 01/11/17 16:00 01/11/17 17:51 Cymbalta PO 20 mg BID JOANNA Administration Ibuprofen 400 mg 01/10/17 16:20 01/11/17 02:40 Motrin Tab PO 400 mg Q6H PRN Administration Pain, moderate (4-7) Lorazepam 2 mg 01/10/17 16:08 01/11/17 13:44 Ativan PO 2 mg TID PRN Administration Agitation Protocol Magnesium Hydroxide 30 ml 01/10/17 16:24 Milk Of Magnesia PO DAILY PRN Constipation Methadone HCl 25 mg 01/11/17 10:00 01/11/17 09:36 Methadone PO 25 mg MON JOANNA Administration Pantoprazole Sodium 40 mg 01/11/17 06:00 01/11/17 07:07 Protonix Ec Tab PO 40 mg 0600 JOANNA Administration Past Psychiatric History - Past Psychiatric History Prior Professional Help: see HPI Prior Psychiatric Treatment: h/o f/u with [facility] hospital: no previous psych admissions Nature of Treatment: med management History of Abuse: denied History of ETOH/Drug Use: see HPI Pertinent Medical Hx (Current Medical&Sleep Prob, Allergies): Allergies Allergy/AdvReac Type Severity Reaction Status Date / Time No Known Allergies Allergy Verified 01/10/17 15:57 RX: Cefpodoxime [Vantin] 200 mg PO Q12 tab 01/10/17 RX: DULoxetine [Cymbalta] 20 mg PO BID ecc 01/10/17 RX: Heparin 5,000 units SC Q8 vial 01/10/17 RX: Ibuprofen [Motrin Tab] 400 mg PO Q6H PRN tab 01/10/17 RX: LORazepam [Ativan] 2 mg IVP Q4H PRN vial 01/10/17 RX: Ondansetron [Zofran Inj] 4 mg IVP Q6H PRN vial 01/10/17 RX: Pantoprazole [Protonix EC Tab] 40 mg PO 0600 ect 01/10/17 RX: QUEtiapine [Seroquel] 50 mg PO HS tab 01/10/17 RX: amLODIPine [Norvasc] 5 mg PO DAILY tab 01/10/17 RX: buPROPion XL [Wellbutrin XL] 150 mg PO DAILY t24 01/10/17 RX: chlordiazePOXIDE [Librium] 50 mg PO TID cap 01/10/17 Review of Systems - Review of Systems Systems not reviewed;Unavailable: Acuity of Condition - EENT Eyes: As Per HPI Ears: As Per HPI Nose/Mouth/Throat: As Per HPI - Cardiovascular Cardiovascular: As Per HPI - Respiratory Respiratory: As Per HPI - Gastrointestinal Gastrointestinal: As Per HPI - Genitourinary Genitourinary: As Per HPI - Reproductive: Male Reproductive:Male: As Per HPI - Musculoskeletal Musculoskeletal: As Par HPI - Integumentary Integumentary: As Per HPI - Neurological Neurological: As Per HPI - Psychiatric Psychiatric: As Per HPI - Endocrine Endocrine: As Per HPI - Hematologic/Lymphatic Hematologic: As Per HPI Mental Status Examination - Personal Presentation Personal Presentation: Looks stated age - Affect Affect: Flat - Motor Activity Motor Activity: Calm - Reliability in Providing Information Reliability in Providing Information: Fair - Speech Speech: Organized - Mood Mood: Depressed, Anxious - Formal Thought Process Formal Thought Process: No Impairment - Obsessions/Compulsions Obsessions: None Compulsions: None - Cognitive Functions Orientation: Person, Place, Situation, Time Sensorium: Alert Attention/Concentration: Easily distracted Abstract Thinking: As evidence by abstract perception of proverbs Estimate of Intelligence: Average Judgement: Intact, as evidence by: Insight regarding need for hospitalization - Risk Risk: Diminished functioning - Strength & Assets Inventory Strength & Assets Inventory: Cooperative DSM 5 DX - DSM 5 DSM 5 Diagnosis: self reported h/o bipolar disorder self reported ADHD polysubstance abuse and dependence r/o substance induced mood disorder - Recommended/Plan of Treatment Treatment Recommendations and Plan of Treatment: Milieu/structure/supportive therapy Medical consult appreciated, see medical team note for more detailed info consultation for discharge plan and social issues Med management Cymbalta 20 mg twice a day for depression Abilify 5 mg daily for mood stabilization Patient does not want to be on Wellbutrin and that will be discontinued Patient is on tapering dose of methadone today was 25 mg with the plan to taper down by 5 mg daily When necessary medications Patient is on tapering dose of benzodiazepine dependence Family involvement Police needs to be notified upon discharge because patient needs to be interviewed for investigation of of his Freight Trucker Alejandro Cabral, Follow up on labs Will monitor closely evaluation for d/c planning Pt was educated about risk/benefits and alternatives of medications, coping strategies (safety plan, suicide prevention), relapse prevention, importance of follow up with psychiatrist and therapist, stay away from drugs/alcohol/smoking Projected ELOS: 7days Prognosis: fair Discharge Plan and Discharge Criteria: Pt will be not depressed or manic, will be more hopeful, will be not psychotic or anxious, will be not having thoughts of harming self or others, will be tolerating medications well, will not have major side effects, will be able to function, will not pose threat to self or others. - Smoking Cessation Smoking Cessation Initiated: No Reason for not providing: pt does not want to be on nicotine patch
[2017-01-12] MEDS: Pantoprazole 40 mg EC Tab PO SCH (09:11)
[2017-01-12] MEDS: Cefpodoxime (Vantin) 200 mg Tab PO SCH ×2 (09:11→17:50)
[2017-01-12 12:32] LABS: URINE BILIRUBIN NEGATIVE (NEGATIVE); URINE BLOOD NEGATIVE (NEGATIVE); URINE GLUCOSE (UA) NEGATIVE (NEGATIVE); URINE KETONE NEGATIVE (NEGATIVE); URINE LEUKOCYTE ESTERASE NEGATIVE Leu/uL (NEGATIVE); URINE PROTEIN NEGATIVE mg/dL (<30 mg/dL); URINE UROBILINOGEN 0.2 E.U./dL (<1 E.U./dL)
[2017-01-12 12:33] LABS: URINE APPEARANCE CLEAR (CLEAR); URINE COLOR LIGHT YELLOW (YELLOW)
--- NOTE | 2017-01-12 16:06 | PCM.PYCHPN ---
Psychiatric Progress Note - Psychiatric Progress Note Patient seen today, length of contact: 30 minutes Patient Chief Complaint: "I feel guilty of being alive..." Problems Identified/Issues Discussed: Suicide/ homicide prevention, past psychiatric h/o, current psychiatric symptoms , medical problems, risk/benefits and alternatives of medications, medications compliance, coping strategies, substance abuse h/o, relapse prevention, importance of follow up with psychiatrist and therapist, discharge plan. Medical Problems: pt is s/p suicidal attempt multiple drug overdose Diagnostic Results: 01/11/17 09:40 01/11/17 09:40 Lab Results 01/12/17 12:20: Urine Color Light yellow, Urine Appearance Clear, Urine pH 8.0, Ur Specific [place] 1.010, Urine Protein Negative, Urine Glucose (UA) Negative, Urine Ketones Negative, Urine Blood Negative, Urine Nitrate Negative, Urine Bilirubin Negative, Urine Urobilinogen 0.2, Ur Leukocyte Esterase Negative 01/11/17 09:40: Sodium 140, Potassium 4.3, Chloride 95 L, Carbon Dioxide 36 H, Anion Gap 14, BUN 22 H, Creatinine 1.2, Est GFR ( Amer) > 60, Est GFR ( Non-Af Amer) > 60, Random Glucose 77, Calcium 8.7, Total Bilirubin 0.6, AST 31, ALT 76 H, Alkaline Phosphatase 73, Total Protein 5.9, Albumin 3.2, Globulin 2.7 , Albumin/Globulin Ratio 1.2 01/11/17 09:40: WBC 6.4, RBC 4.44, Hgb 13.7 L, Hct 41.0 L, MCV 92.3, MCH 30.9, MCHC 33.4, RDW 13.8, Plt Count 261, MPV 9.5, Gran % 60.0, Lymph % (Auto) 28.1, [place] % (Auto) 10.1 H, Eos % (Auto) 1.6, Baso % (Auto) 0.2, Gran # 3.87, Lymph # 1.8, [place] # 0.7 H, Eos # 0.1, Baso # 0.01 01/11/17 06:45: HIV 1&2 Ag/Ab, 4th Gen Nonreactive Vital Signs Temp Pulse Resp BP 01/12/17 07:56 98.3 F 61 16 107/63 01/11/17 16:00 64 118/60 01/11/17 07:56 98.9 F 59 L 20 125/82 01/10/17 14:04 17 DSM 5 Symptoms Update: shortly patient is 36 year old male with self reported history of bipolar disorder, denied history or psychiatric inpatient admissions, patient has history of polysubstance abuse and dependence, multiple inpatient rehabs and detoxes, patient was found unresponsive at home, as per lives Department patient significant other overdose at the house resulting in bed on the scene. Initially patient was seen in the ICU, was improving was downgraded to the medical side, patient refused to sign consent for treatment on the medical side , patient was screened by [facility] for involuntary commitment , during the evaluation patient changed his mind and decided to sign himself into the psychiatric inpatient unit for further evaluation and stabilization, patient was medically cleared, was transferred overnight to the psychiatric inpatient unit, transfer was uneventful. patient was seen today in his room, pt seems to be more depressed, pt expressed guilty feeling that he is still alive and his 29yo . pt reported that he had transient feeling of hopelessness, but "my daughter and my ex- are my main support now, I know they care about me". pt does not want his father to be involved in his care, but gave permission to speak to his ex and his cousin whom he is planning to stay after discharge. pt c/o sore throat, medical team started antibiotics, this conventional mortgage underwriter started vitamin see and supper Qual. Patient tolerates medications well, no side effects observed or reported. As per staff patient is self isolating, appears to be depressed, at times superficial. No agitation, no aggression. DSM 5 Diagnosis: self reported h/o bipolar disorder self reported ADHD polysubstance abuse and dependence r/o substance induced mood disorder Medication Change: Yes (cymbalta increased) Medical Record Reviewed: Yes Consults ordered or reviewed: medical consult appreciated Mental Status Examination - Cognitive Function Orientation: Person, Place, Situation, Time Memory: Intact Attention: Poor Concentration: Poor Association: WNL Fund of Knowledge: WNL - Mood Mood: Depressed, Anxious - Affect Affect: Flat - Speech Speech: Appropriate - Formal Thought Process Formal Thought Process: No Impairment - Suicidal Ideation Suicidal Ideation: No - Homicidal Ideation Homicidal Ideation: No Goal/Treatment Plan - Goal/Treatment Plan Need for Continued Stay: Remain at risks for inpatient hospitalization, Severe depression anxiety, Discharge may exacerbated symptoms, Severe functional impairment Progress Toward Problem(s) and Goals/Treatment Plan: Milieu/structure/supportive therapy Medical consult appreciated, see medical team note for more detailed info SW consultation for discharge plan and social issues Med management Cymbalta 60mg a day for depression Abilify 5 mg daily for mood stabilization Patient is on tapering dose of methadone today was 20 mg with the plan to taper down by 5 mg daily When necessary medications Patient is on tapering dose of benzodiazepine Family involvement, pt wants his ex- and his cousin to be involved Police needs to be notified upon discharge because patient needs to be interviewed for investigation of of his Equipment Manager Alejandro Cabarl, Follow up on labs Will monitor closely evaluation for d/c planning Pt was educated about risk/benefits and alternatives of medications, coping strategies (safety plan, suicide prevention), relapse prevention, importance of follow up with psychiatrist and therapist, stay away from drugs/alcohol/smoking Estimated Date of D/C: 01/15/17 - Smoking Cessation Reason for not providing: pt does not want to be on nicotine patch, pt reported smoking 1/2 pack a da
--- NOTE | 2017-01-12 16:30 | PN ---
DATE: 01/12/2017 SUBJECTIVE: The patient is in bed, in no acute distress. The patient was seen early this morning. PHYSICAL EXAMINATION: VITAL SIGNS: Temperature is 98, blood pressure is 107/60, respiratory rate of 16. HEENT: Unremarkable. NECK: Supple. LUNGS: Have decreased breath sounds. HEART: Normal S1 and S2. ABDOMEN: Soft and nontender. Laboratory examination reveals a white count of 6.4, hemoglobin of 13, platelets of 261. Chemistries reveal a BUN of 22, creatinine of 1.2. Urinalysis is noted, and HIV is negative. Microbiology is noted. ASSESSMENT/PLAN: A 36-year-old male with a history of depression. Sepsis due to gram-negative elodia, anxiety and depression, intravenous drug abuse, with E. coli and urinary tract infection. Repeat urine cultures are negative. E. coli is pansensitive. Review of orders confirms the patient to be on cefpodoxime. We will follow with you. Wilner Leach MD
[2017-01-12] MEDS: Benzocaine/Menthol (Cepacol) Lozenge MT PRN ×2 (17:50→22:15)
[2017-01-13] MEDS: Benzocaine/Menthol (Cepacol) Lozenge MT PRN ×2 (03:57→18:36)
[2017-01-13] MEDS: Cefpodoxime (Vantin) 200 mg Tab PO SCH ×2 (06:27→18:31)
[2017-01-13] MEDS: Pantoprazole 40 mg EC Tab PO SCH (06:27)
--- NOTE | 2017-01-13 17:37 | PCM.PYCHPN ---
Psychiatric Progress Note - Psychiatric Progress Note Patient seen today, length of contact: 30 minutes Patient Chief Complaint: "I feel guilty of being alive..." Problems Identified/Issues Discussed: Suicide/ homicide prevention, past psychiatric h/o, current psychiatric symptoms , medical problems, risk/benefits and alternatives of medications, medications compliance, coping strategies, substance abuse h/o, relapse prevention, importance of follow up with psychiatrist and therapist, discharge plan. Medical Problems: pt is s/p suicidal attempt multiple drug overdose Diagnostic Results: 01/11/17 09:40 01/11/17 09:40 Lab Results 01/12/17 12:20: Urine Color Light yellow, Urine Appearance Clear, Urine pH 8.0, Ur Specific [place] 1.010, Urine Protein Negative, Urine Glucose (UA) Negative, Urine Ketones Negative, Urine Blood Negative, Urine Nitrate Negative, Urine Bilirubin Negative, Urine Urobilinogen 0.2, Ur Leukocyte Esterase Negative 01/11/17 09:40: Sodium 140, Potassium 4.3, Chloride 95 L, Carbon Dioxide 36 H, Anion Gap 14, BUN 22 H, Creatinine 1.2, Est GFR ( Amer) > 60, Est GFR ( Non-Af Amer) > 60, Random Glucose 77, Calcium 8.7, Total Bilirubin 0.6, AST 31, ALT 76 H, Alkaline Phosphatase 73, Total Protein 5.9, Albumin 3.2, Globulin 2.7 , Albumin/Globulin Ratio 1.2 01/11/17 09:40: WBC 6.4, RBC 4.44, Hgb 13.7 L, Hct 41.0 L, MCV 92.3, MCH 30.9, MCHC 33.4, RDW 13.8, Plt Count 261, MPV 9.5, Gran % 60.0, Lymph % (Auto) 28.1, [place] % (Auto) 10.1 H, Eos % (Auto) 1.6, Baso % (Auto) 0.2, Gran # 3.87, Lymph # 1.8, [place] # 0.7 H, Eos # 0.1, Baso # 0.01 01/11/17 06:45: HIV 1&2 Ag/Ab, 4th Gen Nonreactive Vital Signs Temp Pulse Resp BP 01/12/17 07:56 98.3 F 61 16 107/63 01/11/17 16:00 64 118/60 01/11/17 07:56 98.9 F 59 L 20 125/82 01/10/17 14:04 17 DSM 5 Symptoms Update: shortly patient is 36 year old male with self reported history of bipolar disorder, denied history or psychiatric inpatient admissions, patient has history of polysubstance abuse and dependence, multiple inpatient rehabs and detoxes, patient was found unresponsive at home, as per lives Department patient significant other overdose at the house resulting in bed on the scene. Initially patient was seen in the ICU, was improving was downgraded to the medical side, patient refused to sign consent for treatment on the medical side , patient was screened by [facility] for involuntary commitment , during the evaluation patient changed his mind and decided to sign himself into the psychiatric inpatient unit for further evaluation and stabilization, patient was medically cleared, was transferred overnight to the psychiatric inpatient unit, transfer was uneventful. patient was seen today in his room, pt seems to be more depressed, pt expressed guilty feeling that he is still alive and his 29yo . of note police wanted to interview pt about the of pt's , pt willing to do it while in the psych inpatient unit. SW will call and let police know. Patient reported that he that he does not feel anxious about interviewing, looking for."To do what I have to do". pt reported that he had transient feeling of hopelessness, but "my daughter and my ex- are my main support now, I know they care about me". pt does not want his father to be involved in his care, but gave permission to speak to his ex and his cousin whom he is planning to stay after discharge. SW asked to contact pt's family pt c/o sore throat, medical team started antibiotics, this card writer hand started vitamins and lozenges. Patient tolerates medications well, no side effects observed or reported. AIMS0 no EPS. by mistake pt got 150mg of methadone instead of 15mg, this card writer hand spoke to the pt, vitals are WNL, pt feels okay. Temp Pulse Resp BP Pulse Ox 97.3 F L 83 20 135/91 H 01/13/17 07:03 01/13/17 15:51 01/13/17 07:03 01/13/17 15:51 As per staff patient is self isolating, appears to be depressed, at times superficial. No agitation, no aggression. DSM 5 Diagnosis: self reported h/o bipolar disorder self reported ADHD polysubstance abuse and dependence r/o substance induced mood disorder Medication Change: Yes (cymbalta increased) Medical Record Reviewed: Yes Consults ordered or reviewed: medical consult appreciated Mental Status Examination - Cognitive Function Orientation: Person, Place, Situation, Time Memory: Intact Attention: Poor Concentration: Poor Association: WNL Fund of Knowledge: WNL - Mood Mood: Depressed, Anxious - Affect Affect: Flat - Speech Speech: Appropriate - Formal Thought Process Formal Thought Process: No Impairment - Suicidal Ideation Suicidal Ideation: No - Homicidal Ideation Homicidal Ideation: No Goal/Treatment Plan - Goal/Treatment Plan Need for Continued Stay: Remain at risks for inpatient hospitalization, Severe depression anxiety, Discharge may exacerbated symptoms, Severe functional impairment Progress Toward Problem(s) and Goals/Treatment Plan: Milieu/structure/supportive therapy Medical consult appreciated, see medical team note for more detailed info SW consultation for discharge plan and social issues Med management Cymbalta 40mg bid for depression Abilify 10 mg daily for mood stabilization Patient is on tapering dose of methadone today supposed to be 15mg (by accident pt got 150mg), this card writer hand discussed this with pt, pt's vitals wnl, pt is feeling "great" methadone tapering 10mg tomorrow, then 5 mg on Fiday When necessary medications Patient is on tapering dose of benzodiazepine Family involvement, pt wants his ex- and his cousin to be involved Police will be notified and pt will be interviewed, SW will call Machine Set Up Technician Alejandro Cabral, tomorrow Follow up on labs Will monitor closely evaluation for d/c planning Pt was educated about risk/benefits and alternatives of medications, coping strategies (safety plan, suicide prevention), relapse prevention, importance of follow up with psychiatrist and therapist, stay away from drugs/alcohol/smoking Estimated Date of D/C: 01/15/17
--- NOTE | 2017-01-13 17:46 | PN ---
DATE: 01/13/2017 SUBJECTIVE: The patient is in bed in no acute distress. Nontoxic. PHYSICAL EXAMINATION: VITAL SIGNS: Temperature is 98, blood pressure is 116/60, respiratory rate of 20. HEENT: Unremarkable. NECK: Supple. LUNGS: Have decreased breath sounds. HEART: Normal S1, S2. ABDOMEN: Soft and nontender. LABORATORY EXAMINATION: Reveals a white count of 6.4, hemoglobin of 13, platelets of 261. Urinalysis is noted and HIV is negative. Microbiology, his urine culture is negative. ASSESSMENT AND PLAN: This is a 36-year-old male with history of depression and sepsis due to Gram-negative elodia, anxiety and depression, intravenous drug abuse, Escherichia coli urinary tract infection. The patient is currently on cefpodoxime and repeat urine culture is no growth from the 01/12/2017, which was yesterday and review of orders reveals the patient to be still on cefpodoxime. We will follow with you. Wilner Leach MD
[2017-01-14] MEDS: Pantoprazole 40 mg EC Tab PO SCH (06:38)
[2017-01-14] MEDS: Cefpodoxime (Vantin) 200 mg Tab PO SCH ×2 (06:38→17:44)
--- NOTE | 2017-01-14 14:57 | PCM.PYCHPN ---
Psychiatric Progress Note - Psychiatric Progress Note Patient seen today, length of contact: 20 minutes Patient Chief Complaint: "I am feeling really achy and uncomfortable" Problems Identified/Issues Discussed: Patient is feeling sweaty and achy since his dose of methadone yesterday. He is preoccupied with the fact that he feels that he does best on suboxone with his psych meds and his discomfort today. He is aware suboxone is not available here. He is planning to move in with his cousin and go to an IOP on discharge. He does not talk about the loss of his today, he continues to complain of depression. He is taking part in unit activities and spending time outside of his room. Patient is alert and oriented x3, eye contact is good, speech rate and volume are within normal limits, mood is sad, affect is constricted, thoughts are goal directed. He denies being suicidal or homicidal, he denies the presence of hallucinations, delusions or paranoia. His memory both short and residential are intact, focus and concentration are improving. Appetite and sleep have normalized. Agree to STAT prn of ativan, increase in Cymbalta. Medication Change: Yes (cymbalta increased) Medical Record Reviewed: Yes Mental Status Examination - Cognitive Function Orientation: Person, Place, Situation, Time Memory: Intact Attention: Poor Concentration: Poor Association: WNL Fund of Knowledge: WNL - Mood Mood: Depressed, Anxious - Affect Affect: Flat - Speech Speech: Appropriate - Formal Thought Process Formal Thought Process: No Impairment - Suicidal Ideation Suicidal Ideation: No - Homicidal Ideation Homicidal Ideation: No Goal/Treatment Plan - Goal/Treatment Plan Need for Continued Stay: Remain at risks for inpatient hospitalization, Severe depression anxiety, Discharge may exacerbated symptoms, Severe functional impairment Estimated Date of D/C: 01/15/17
--- NOTE | 2017-01-14 22:57 | PN ---
DATE: 01/14/2017 SUBJECTIVE: The patient is seen in the psychiatric floor early this morning. No fevers. No chills. He is comfortable. PHYSICAL EXAMINATION: VITAL SIGNS: Temperature is 98, blood pressure is 130/80, respiratory rate of 20, and heart rate of 54. HEENT: Unremarkable. NECK: Supple. LUNGS: Have decreased breath sounds. HEART: Normal S1, S2. ABDOMEN: Soft and nontender. LABORATORY EXAMINATION: Reveals a white count of 6.4, hemoglobin of 13, platelets of 261. BUN of 22, creatinine of 1.2. Urinalysis is noted and HIV is negative. Review of orders reveals the patient to be on cefpodoxime 200 mg p.o. b.i.d. ASSESSMENT AND PLAN: This is a 36-year-old male seen early this morning in the psychiatric floor with history of depression with new sepsis with Gram-negative elodia, anxiety and depression, Escherichia coli urinary tract infection. Currently, on cefpodoxime. We will check repeat urine culture, no growth. We will complete a short course. Wilner Leach MD
[2017-01-15] MEDS: Pantoprazole 40 mg EC Tab PO SCH (05:37)
[2017-01-15] MEDS: Cefpodoxime (Vantin) 200 mg Tab PO SCH ×2 (05:37→17:20)
--- NOTE | 2017-01-15 10:05 | PCM.PYCHPN ---
Psychiatric Progress Note - Psychiatric Progress Note Patient seen today, length of contact: 25 minutes Patient Chief Complaint: "dose of methadone from 2 days ago really messed me up" Problems Identified/Issues Discussed: I reviewed recent notes and met with patient at bedside. He is familiar to this provider from my consultations on the medical floor. He is well-oriented to month, year, location and circumstances. Patient remains depressed and affect is congruent. Reports he had a difficult night, feels the 150 mg of methadone erroneously given x2 days ago "really messed me up"; patient was only supposed to receive 15 mg. He complains of hot and cold sweats, nausea, aches and restlessness. Feels he is withdrawing and he is agreeable to 10 mg of methadone today. Patient has been tolerating medications, including increase of cymbalta from 60 mg po daily to 40 mg po bid. His thought process is clear and organized. As usual, he denies perceptual disturbance. Patient denies any other discomfort or pain. Staff notes indicate that patient is visible on the unit and cooperative with staff. Pleasant on the unit. There were no behavioral issues overnight. Diagnostic Results: self reported h/o bipolar disorder self reported ADHD polysubstance abuse and dependence r/o substance induced mood disorder Medication Change: Yes ( methadone 10 mg x1) Medical Record Reviewed: Yes Mental Status Examination - Cognitive Function Orientation: Person, Place, Situation, Time Memory: Intact Attention: Poor Concentration: Poor Association: WNL Fund of Knowledge: WNL - Mood Mood: Depressed ("dose of methadone from 2 days ago really messed me up"), Anxious - Affect Affect: Constricted - Speech Speech: Appropriate - Formal Thought Process Formal Thought Process: No Impairment - Suicidal Ideation Suicidal Ideation: No - Homicidal Ideation Homicidal Ideation: No Goal/Treatment Plan - Goal/Treatment Plan Need for Continued Stay: Remain at risks for inpatient hospitalization, Severe depression anxiety, Discharge may exacerbated symptoms, Severe functional impairment Progress Toward Problem(s) and Goals/Treatment Plan: * Group, milieu and supportive treatment * Cymbalta 40 mg bid for depression * Abilify 10 mg daily for mood stabilization and to augment for depression * ~Per Dr. Anderson's plan on 01/13/17: Patient is on tapering dose of methadone, on 01/13/17 patient erroneously received 150 mg instead of 15mg with no acute complications. Supposed to receive 10 mg 01/14/17 and 5 mg 01/15/[address] Powell deferred on providing methadone on 01/14/17, indicated patient may receive 10 mg po today, 01/15/2017. * This provider will prescribe tapering dose of 5 mg on 01/16/17 and then discontinue. * Librium 10 mg po TID, continue taper as vitals tolerate. Patient received stat dose of Ativan 2 mg yesterday. * Appreciate update by Frida DIAZ today. Operations Engineer Jaime will be interviewing patient today regarding of his . * Appreciate f/u by Dr. Leach on 01/14/17~will repeat Urine culture, c/w Abx (Flavia) * Vitals reviewed and noted below: Selected Entries 01/13/17 01/13/17 01/14/17 07:03 15:51 07:00 Temperature 97.3 F L 98.3 F Pulse Rate 62 83 88 Respiratory 20 20 Rate Blood Pressure 116/65 135/91 H 138/82 01/14/17 01/15/17 16:47 06:54 Temperature 98.1 F Pulse Rate 84 59 L Respiratory 20 Rate Blood Pressure 134/76 106/57 L * No new floor labs noted thus far Estimated Date of D/C: 01/15/17
[2017-01-16] MEDS: Pantoprazole 40 mg EC Tab PO SCH (06:48)
--- NOTE | 2017-01-16 08:43 | PCM.PYCHPN ---
Psychiatric Progress Note - Psychiatric Progress Note Patient seen today, length of contact: 25 minutes Patient Chief Complaint: "up and down" Problems Identified/Issues Discussed: I reviewed recent notes and met with patient at bedside. He is well-oriented to month, year, location and circumstances. Patient remains depressed and affect is congruent. Reports that he slept a little better last night though his night was still restless. Prior symptoms of hot/cold sweats, nausea, aches and restlessness are improving. Tolerating methadone 10 mg x1 well yesterday. Patient reports his mood is "up and down". He is generally his tolerating medications but feels they make him sleepy during the day. Requests that some medications switch from daytime to nighttime. Patient's thought process remains clear and organized. As usual, he denies perceptual disturbance. Staff notes indicate that patient is visible on the unit and cooperative with staff. Pleasant on the unit. Participated in interview with detectives yesterday regarding his 's . There were no behavioral issues overnight. Diagnostic Results: self reported h/o bipolar disorder self reported ADHD polysubstance abuse and dependence r/o substance induced mood disorder Medication Change: Yes (methadone 5 mg x1, decreased librium, changed abilify to hs) Medical Record Reviewed: Yes Mental Status Examination - Cognitive Function Orientation: Person, Place, Situation, Time Memory: Intact Attention: Poor Concentration: Poor Association: WNL Fund of Knowledge: WNL - Mood Mood: Depressed ("up and down"), Anxious - Affect Affect: Constricted - Speech Speech: Appropriate - Formal Thought Process Formal Thought Process: No Impairment - Suicidal Ideation Suicidal Ideation: No - Homicidal Ideation Homicidal Ideation: No Goal/Treatment Plan - Goal/Treatment Plan Need for Continued Stay: Remain at risks for inpatient hospitalization, Severe depression anxiety, Discharge may exacerbated symptoms, Severe functional impairment Progress Toward Problem(s) and Goals/Treatment Plan: * Group, milieu and supportive treatment * Cymbalta 40 mg bid for depression * Abilify 10 mg daily changed to HS for daytime sedation. Prescribed for mood stabilization and to augment for depression * ~Per Dr. Anderson's plan on 01/13/17: Patient is on tapering dose of methadone, on 01/13/17 patient erroneously received 150 mg instead of 15mg with no acute complications. Supposed to receive 10 mg 01/14/17 and 5 mg 01/15/[address] Powell deferred on providing methadone on 01/14/17, indicated patient may receive 10 mg po today, 01/15/2017. * This provider will prescribe tapering dose of 5 mg on 01/16/17 and then discontinue. * Librium 10 mg po TID, continue taper to 10 mg [facility] today, as vitals tolerate. Patient received stat dose of Ativan 2 mg 01/15/17. * Appreciate update by Frida Olivares WOOD FENCE INSTALLER 01/15/17. Financial Service Representative Jaime and analytical lab technician Art interviewed patient on 01/15/17 regarding of his . * Appreciate f/u by Dr. Leach on 01/14/17~will repeat Urine culture, c/w Abx (Flavia) * Vitals reviewed and noted below: Selected Entries 01/14/17 01/14/17 01/15/17 07:00 16:47 06:54 Temperature 98.3 F 98.1 F Pulse Rate 88 84 59 L Respiratory 20 20 Rate Blood Pressure 138/82 134/76 106/57 L 01/15/17 15:00 Temperature Pulse Rate 78 Respiratory Rate Blood Pressure 104/58 L * No new floor labs noted thus far Estimated Date of D/C: 01/15/17
[2017-01-17] MEDS: Pantoprazole 40 mg EC Tab PO SCH (08:03)
--- NOTE | 2017-01-17 08:58 | PCM.PYCHPN ---
Psychiatric Progress Note - Psychiatric Progress Note Patient seen today, length of contact: 25 minutes Patient Chief Complaint: "up and down" Problems Identified/Issues Discussed: I reviewed recent notes and met with patient at bedside. He is well-oriented to month, year, location and circumstances. Patient remains depressed and affect is congruent. Reports that he slept a little better last night though his night was still restless. Prior symptoms of hot/cold sweats, nausea, aches and restlessness continue to improve. Tolerating methadone 5 mg x 1 well yesterday. Patient still reports his mood is "up and down". Remains anxious at times and requests prn for anxiety. Patient is agreeable to vistaril prn. He is generally tolerating his other medications. Patient's thought process remains clear and organized. As usual, he denies perceptual disturbance. Staff notes indicate that patient is visible on the unit and cooperative with staff. Pleasant on the unit but doesn't interact much with other patients. Anxious at times. He participated in interview with detectives on Wednesday regarding his 's . There were no behavioral issues over the weekend. Diagnostic Results: self reported h/o bipolar disorder self reported ADHD polysubstance abuse and dependence r/o substance induced mood disorder Medication Change: Yes (added vistaril prn) Medical Record Reviewed: Yes Mental Status Examination - Cognitive Function Orientation: Person, Place, Situation, Time Memory: Intact Attention: Poor Concentration: Poor Association: WNL Fund of Knowledge: WNL - Mood Mood: Depressed ("up and down"), Anxious - Affect Affect: Constricted - Speech Speech: Appropriate - Formal Thought Process Formal Thought Process: No Impairment - Suicidal Ideation Suicidal Ideation: No - Homicidal Ideation Homicidal Ideation: No Goal/Treatment Plan - Goal/Treatment Plan Need for Continued Stay: Remain at risks for inpatient hospitalization, Severe depression anxiety, Discharge may exacerbated symptoms, Severe functional impairment Progress Toward Problem(s) and Goals/Treatment Plan: * Group, milieu and supportive treatment * Started Vistaril 5 mg po q6 prn: anxiety on 01/17/17 * Cymbalta 40 mg bid for depression * Abilify 10 mg daily changed to HS for daytime sedation on 01/17/17. Prescribed for mood stabilization and to augment for depression * ~Per Dr. Anderson's plan on 01/13/17: Patient is on tapering dose of methadon. On 01/13/17 patient erroneously received 150 mg instead of 15mg with no acute complications. Supposed to receive 10 mg 01/14/17 and 5 mg 01/15/[address] Powell deferred on providing methadone on 01/14/17, indicated patient may receive 10 mg po 01/15/2017. This provider then prescribed tapering dose of 5 mg on 01/16/17 and discontinued methadone on 01/17/17. * Librium tapered to 10 mg HS on 01/17/17. To c/w taper as vitals tolerate. * Appreciate update by Frida Olivares SOCIAL WORK ADMINISTRATOR 01/15/17. Gradall Operator Jaime and Gradall Operator Art interviewed patient on 01/15/17 regarding of his . * Appreciate f/u by Dr. Leach on 01/14/17~will repeat Urine culture, c/w Abx (Flavia) * Vitals reviewed and noted below: Selected Entries 01/16/17 01/16/17 01/17/17 07:01 16:16 06:50 Temperature 97.5 F L 98.2 F Pulse Rate 65 63 59 L Respiratory 20 20 Rate Blood Pressure 98/62 L 104/63 111/73 Selected Entries * No new weekend labs noted thus far Estimated Date of D/C: 01/15/17
[2017-01-18] MEDS: Pantoprazole 40 mg EC Tab PO SCH (06:05)
--- NOTE | 2017-01-18 15:36 | CP.PCM.PN ---
Subjective - Date & Time of Evaluation Date of Evaluation: 01/18/17 Time of Evaluation: 11:00 - Subjective Subjective: Comfortable, no dysuria, no fevers, no nausea or vomiting, no diarrhea. Objective - Vital Signs/Intake and Output Vital Signs (last 24 hours): Temp Pulse Resp BP Pulse Ox 98.2 F 77 20 108/71 01/17/17 06:50 01/17/17 16:00 01/17/17 06:50 01/17/17 16:00 - Medications Medications: Current Medications Al Hydrox/Mg Hydrox/Simethicone (Maalox Plus 30 Ml) 30 ml PO DAILY PRN PRN Reason: Indigestion / Heartburn Aripiprazole (Abilify) 10 mg PO HS [facility] Last Admin: 01/17/17 21:59 Dose: Not Given Benzocaine/Menthol (Cepacol Sore Throat) 1 taz MT Q2H PRN PRN Reason: Sore Throat Last Admin: 01/13/17 18:36 Dose: 1 taz Chlordiazepoxide (Librium) 10 mg PO [facility] PRN Reason: Protocol Last Admin: 01/17/17 21:21 Dose: 10 mg Duloxetine HCl (Cymbalta) 40 mg PO BID [facility] Last Admin: 01/18/17 08:46 Dose: 40 mg Hydroxyzine Pamoate (Vistaril) 25 mg PO Q6 PRN; Protocol PRN Reason: Anxiety Last Admin: 01/18/17 06:05 Dose: 25 mg Ibuprofen (Motrin Tab) 400 mg PO Q6H PRN PRN Reason: Pain, moderate (4-7) Last Admin: 01/13/17 20:12 Dose: 400 mg Magnesium Hydroxide (Milk Of Magnesia) 30 ml PO DAILY PRN PRN Reason: Constipation Pantoprazole Sodium (Protonix Ec Tab) 40 mg PO 0600 [facility] Last Admin: 01/18/17 06:05 Dose: 40 mg - Labs Labs: 01/11/17 09:40 01/11/17 09:40 - Constitutional Appears: Non-toxic - Head Exam Head Exam: NORMAL INSPECTION - ENT Exam ENT Exam: Mucous Membranes Moist - Neck Exam Neck Exam: absent: Lymphadenopathy, Meningismus - Respiratory Exam Respiratory Exam: Decreased Breath Sounds - Cardiovascular Exam Cardiovascular Exam: +S1, +S2 - GI/Abdominal Exam GI & Abdominal Exam: Soft. absent: Tenderness Assessment and Plan - Assessment and Plan (Free Text) Plan: Assessment S/P sepsis due to UTI with E. coli anxiety/depression IV drug use ADHD Plan complete course of Vantin will monitor clinically off antibiotics since he is at risk for nosocomial infections
--- NOTE | 2017-01-18 16:21 | PCM.BM ---
Treatment Plan Problems - Problems identified on initial assessmt Depressive Symptoms Date Initiated: 01/10/17 Time Initiated: 16:18 Assessment reference: NA Status: Active Priority: 1 Ineffective Coping Date Initiated: 01/10/17 Time Initiated: 16:18 Assessment reference: NA Status: Active Priority: 2 Treatment assets and liabiliti Patient Assests: cooperative, self-reliant, ADL independent, good support system , negotiates basic needs, cognitively intact Patient Liabilities: substance abuse - Milieu Protocol Maintain good personal hygiene: daily Encourage regular showers, daily Remind patient to perform daily oral care, daily Assist patient to perform ADL's Maintain personal safety: every shift Educate patient to report safety concerns to staff, every shift Monitor environment for contraband/sharps Medication safety: Monitor for expected outcome, potential side effects: every shift, Assess barriers to learning: every shift, Assess readiness for medication education: every shift Milieu Narrative: * Group, milieu and supportive treatment * Started Vistaril 5 mg po q6 prn: anxiety on 01/17/17 * Cymbalta 40 mg bid for depression * Abilify 10 mg daily changed to HS for daytime sedation on 01/17/17. Prescribed for mood stabilization and to augment for depression * ~Per Dr. Anderson's plan on 01/13/17: Patient is on tapering dose of methadon. On 01/13/17 patient erroneously received 150 mg instead of 15mg with no acute complications. Supposed to receive 10 mg 01/14/17 and 5 mg 01/15/[address] Powell deferred on providing methadone on 01/14/17, indicated patient may receive 10 mg po 01/15/2017. This provider then prescribed tapering dose of 5 mg on 01/16/17 and discontinued methadone on 01/17/17. * Librium tapered to 10 mg HS on 01/17/17. To c/w taper as vitals tolerate. * Appreciate update by Frida DIAZ 01/15/17. Roll Line Operator Jaime and Roll Line Operator Art interviewed patient on 01/15/17 regarding of his . * Appreciate f/u by Dr. Leach on 01/14/17~will repeat Urine culture, c/w Abx (Flavia) * Vitals reviewed and noted below: Selected Entries 01/16/17 01/16/17 01/17/17 07:01 16:16 06:50 Temperature 97.5 F L 98.2 F Pulse Rate 65 63 59 L Respiratory 20 20 Rate Blood Pressure 98/62 L 104/63 111/73 Selected Entries * No new weekend labs noted thus far Family Contact Family contact: Patient agrees to contact Discharge/Continuing Care - Education Needs Education Needs: Patient Medication - Discharge Discharge Criteria: Tolerates medication w/o severe side effects, Free of Suicidal thoughts, Normal sleep pattern - Treatment Team Participation Patient/Family/SO Statement: * Group, milieu and supportive treatment * Started Vistaril 5 mg po q6 prn: anxiety on 01/17/17 * Cymbalta 40 mg bid for depression * Abilify 10 mg daily changed to HS for daytime sedation on 01/17/17. Prescribed for mood stabilization and to augment for depression * ~Per Dr. Anderson's plan on 01/13/17: Patient is on tapering dose of methadon. On 01/13/17 patient erroneously received 150 mg instead of 15mg with no acute complications. Supposed to receive 10 mg 01/14/17 and 5 mg 01/15/[address] Powell deferred on providing methadone on 01/14/17, indicated patient may receive 10 mg po 01/15/2017. This provider then prescribed tapering dose of 5 mg on 01/16/17 and discontinued methadone on 01/17/17. * Librium tapered to 10 mg HS on 01/17/17. To c/w taper as vitals tolerate. * Appreciate update by Frida Olivares HOSPICE CONSULTANT 01/15/17. Roll Line Operator Jaime and Roll Line Operator Art interviewed patient on 01/15/17 regarding of his . * Appreciate f/u by Dr. Leach on 01/14/17~will repeat Urine culture, c/w Abx (Flavia) * Vitals reviewed and noted below: Selected Entries 01/16/17 01/16/17 01/17/17 07:01 16:16 06:50 Temperature 97.5 F L 98.2 F Pulse Rate 65 63 59 L Respiratory 20 20 Rate Blood Pressure 98/62 L 104/63 111/73 Selected Entries * No new weekend labs noted thus far Treatment Plan Review - Problem Depressive Symptoms Time Initiated: :18 Ineffective Coping Time Initiated: 16:18
--- NOTE | 2017-01-18 17:55 | PCM.BM ---
Treatment Plan Problems - Problems identified on initial assessmt Depressive Symptoms Date Initiated: 01/18/17 Time Initiated: 13:00 Assessment reference: NA Status: Active Priority: 1 Comment: MOOD AND AFFECT IS IMPROVING Ineffective Coping Date Initiated: 01/18/17 Time Initiated: 13:00 Assessment reference: NA Status: Active Priority: 2 Comment: PT WILL BE MOVING WITH HIS COUSIN AFTER D/C. COPING WITH HIS Problem 1 Date Initiated: 01/18/17 Treatment assets and liabiliti Patient Assests: cooperative, self-reliant, ADL independent, good support system , negotiates basic needs, cognitively intact Patient Liabilities: substance abuse - Milieu Protocol Maintain good personal hygiene: daily Encourage regular showers, daily Remind patient to perform daily oral care, daily Assist patient to perform ADL's Maintain personal safety: every shift Educate patient to report safety concerns to staff, every shift Monitor environment for contraband/sharps Medication safety: Monitor for expected outcome, potential side effects: every shift, Assess barriers to learning: every shift, Assess readiness for medication education: every shift Milieu Narrative: * Group, milieu and supportive treatment * Started Vistaril 5 mg po q6 prn: anxiety on 01/17/17 * Cymbalta 40 mg bid for depression * Abilify 10 mg daily changed to HS for daytime sedation on 01/17/17. Prescribed for mood stabilization and to augment for depression * ~Per Dr. Anderson's plan on 01/13/17: Patient is on tapering dose of methadon. On 01/13/17 patient erroneously received 150 mg instead of 15mg with no acute complications. Supposed to receive 10 mg 01/14/17 and 5 mg 01/15/[address] Powell deferred on providing methadone on 01/14/17, indicated patient may receive 10 mg po 01/15/2017. This provider then prescribed tapering dose of 5 mg on 01/16/17 and discontinued methadone on 01/17/17. * Librium tapered to 10 mg HS on 01/17/17. To c/w taper as vitals tolerate. * Appreciate update by Frida DIAZ 01/15/17. Licensed Embalmer Supervisor Jaime and Licensed Embalmer Supervisor Art interviewed patient on 01/15/17 regarding of his . * Appreciate f/u by Dr. Leach on 01/14/17~will repeat Urine culture, c/w Abx (Flavia) * Vitals reviewed and noted below: Selected Entries 01/16/17 01/16/17 01/17/17 07:01 16:16 06:50 Temperature 97.5 F L 98.2 F Pulse Rate 65 63 59 L Respiratory 20 20 Rate Blood Pressure 98/62 L 104/63 111/73 Selected Entries * No new weekend labs noted thus far Family Contact Family contact: Patient agrees to contact Discharge/Continuing Care - Education Needs Education Needs: Patient Medication - Discharge Discharge Criteria: Tolerates medication w/o severe side effects, Free of Suicidal thoughts, Normal sleep pattern - Treatment Team Participation Patient/Family/SO Statement: * Group, milieu and supportive treatment * Started Vistaril 5 mg po q6 prn: anxiety on 01/17/17 * Cymbalta 40 mg bid for depression * Abilify 10 mg daily changed to HS for daytime sedation on 01/17/17. Prescribed for mood stabilization and to augment for depression * ~Per Dr. Anderson's plan on 01/13/17: Patient is on tapering dose of methadon. On 01/13/17 patient erroneously received 150 mg instead of 15mg with no acute complications. Supposed to receive 10 mg 01/14/17 and 5 mg 01/15/[address] Powell deferred on providing methadone on 01/14/17, indicated patient may receive 10 mg po 01/15/2017. This provider then prescribed tapering dose of 5 mg on 01/16/17 and discontinued methadone on 01/17/17. * Librium tapered to 10 mg HS on 01/17/17. To c/w taper as vitals tolerate. * Appreciate update by Frida Olivares SENIOR PHARMACY TECHNICIAN 01/15/17. Licensed Embalmer Supervisor Jaime and Licensed Embalmer Supervisor Art interviewed patient on 01/15/17 regarding of his . * Appreciate f/u by Dr. Leach on 01/14/17~will repeat Urine culture, c/w Abx (Flavia) * Vitals reviewed and noted below: Selected Entries 01/16/17 01/16/17 01/17/17 07:01 16:16 06:50 Temperature 97.5 F L 98.2 F Pulse Rate 65 63 59 L Respiratory 20 20 Rate Blood Pressure 98/62 L 104/63 111/73 Selected Entries * No new weekend labs noted thus far Treatment Plan Review - Problem Depressive Symptoms Time Initiated: 16:18 Ineffective Coping Time Initiated: 16:18
--- NOTE | 2017-01-18 21:28 | PCM.PYCHPN ---
Psychiatric Progress Note - Psychiatric Progress Note Patient seen today, length of contact: 25 minutes Patient Chief Complaint: "I don't know, I think I am ready to go home but do not feel that I want to go to rehab again"" Problems Identified/Issues Discussed: Patient feels he has stabilized psychiatrically, he wants to get back to work, return to his former prescriber in the community, and attend NA. He plans to live with a cousin and feels he is stable at this time. He denies feeling suicidal or homicidal, denies the presence of hallucinations, delusions, or paranoia. His concentration and focus, sleep and appetite he reports are normal. He feels sad about the loss of his , but is feeling "able to move on ". Discharge is planned by the end of the week. Medication Change: No Medical Record Reviewed: Yes Mental Status Examination - Cognitive Function Orientation: Person, Place, Situation, Time Memory: Intact Attention: Poor Concentration: Poor Association: WNL Fund of Knowledge: WNL - Mood Mood: Depressed ("up and down"), Anxious - Affect Affect: Constricted - Speech Speech: Appropriate - Formal Thought Process Formal Thought Process: No Impairment - Suicidal Ideation Suicidal Ideation: No - Homicidal Ideation Homicidal Ideation: No Goal/Treatment Plan - Goal/Treatment Plan Need for Continued Stay: Remain at risks for inpatient hospitalization, Severe depression anxiety, Discharge may exacerbated symptoms, Severe functional impairment Estimated Date of D/C: 01/15/17
[2017-01-19] MEDS: Pantoprazole 40 mg EC Tab PO SCH (05:14)
[2017-01-19 07:04] VITALS: BP 133/84; PULSE 68; RESP 21; TEMP 98.1
--- NOTE | 2017-01-19 18:36 | PN ---
DATE: 01/19/2017 SUBJECTIVE: The patient is in bed, in no acute distress. PHYSICAL EXAMINATION: VITAL SIGNS: Temperature is 98, blood pressure is 130/80, respiratory rate of 20. HEENT: Unremarkable. NECK: Supple. LUNGS: Have decreased breath sounds. HEART: Normal S1, S2. ABDOMEN: Soft and nontender. LABORATORY EXAMINATION: Reveals a white count of 6.4, hemoglobin of 13, and platelets are noted. MEDICATIONS: Review of medications reveals the patient is off of any antibiotics. ASSESSMENT AND PLAN: This is a 36-year-old male who was seen early this morning in the psychiatric floor, doing well. He says he feels anxious, status post sepsis due to Escherichia coli urinary tract infection with history of anxiety and depression, and currently off of antibiotics. The patient has completed a course of Vantin. Wilner Leach MD
--- NOTE | 2017-01-19 20:25 | PCM.PYCHDC ---
Mental Status Examination - Mental Status Examination Orientation: Person, Place, Time Memory: Intact Mood: Neutral Affect: Constricted Speech: Appropriate Attention: WNL Concentration: WNL Association: WNL Fund of Knowledge: WNL Formal Thought Process: No Impairment Description of patient's judgement and insight: Patient continues to struggle with issues related to his addiction and sobriety , but appears to have some insight into the relationship between his mental illness and addiction. He is not in imminent danger of hurting himself or anyone else at this time. Psychotic Thoughts and Behaviors: Patient denies the presence of hallucinations, delusions, or paranoia. Suicidal Ideation: No Current Homicidal Ideation?: No Discharge Summary - Discharge Note Reason for Hospitalization: Patient was admitted to the hospital after an overdose prompted by finding his of an overdose in bed with him after a day and night of them both using drugs. He decided he wanted to join her so he took the rest of the drugs that they had in the house. He was subsequently admitted to ICU and voluntarily came up to our unit after initially refusing and being screened. He has been detoxed off of Methadone and Benzodiazepines while in the hospital and plans to attend [facility] on discharge. He feels he has been able to "move past" his 's , but will have to return to their apartment at some point. His family is supportive and are staying with him upon discharge. He additionally plans to stay on the medication prescribed for his Bipolar Illness. Psychiatric History (includes Medical, Family, Personal Hx): med management Consultations:: List each consultation separately and include: 1. Reason for request. 2. Findings. 3. Follow-up Consultations: 01/11/17 10:26 Psychoeducation Psychopharmacology/adjustment of medications as needed/ monitoring possible side effect abilify as a mood stabilizer Evaluate pt on daily basis Compliance with medications and follow up appointments Suicide and homicide risk assessment and prevention, coping strategies, safety plan Relapse prevention Reduction of symptoms Improve functional status Family involvement, pt wants his cousin and ex- and daughter to be involved into his care, will call for a family meeting As outpatient: cognitive behavioral therapy 01/11/17 14:57 Summary of Hospital Course include:: 1. Description of specific treatment plan utilized for patients during their course of treatmen. 2. Summarize the time- course for resolution of acute symptoms and/or regressed behaviors. 3. Describe issues identified and worked on during hospitalization. 4. Describe medication utilized. 5. Describe medical problems identified and treated. 6. Reassessment of suicide risk - Diagnosis (1) Bipolar 1 disorder Status: Acute (2) Polysubstance dependence including opioid type drug with complication, episodic abuse Status: Acute - Final Diagnosis (DSM 5) Condition upon Discharge: GOOD Disposition: HOME/ ROUTINE Follow-up Treatment Plan: Patient is to go [facility]. He will stay with his father in a hotel until he can get into his apartment. He agrees to utilize [facility] or come to the nearest emergency room if he feels he is in crisis or suicidal in the future. Prescriptions/Medication Reconciliation: ARIPiprazole [Abilify] 10 mg PO HS #14 tab DULoxetine [Cymbalta] 40 mg PO BID #30 ecc
== END 2017-01-19 16:20 | disposition home or self-care (01) | DRG 430 ==
LOC: PSYC 13:40
PROVIDERS: ADMIT Psychiatry & Neurology Psychiatry; ATTEND Psychiatry & Neurology Psychiatry
DX: F31.9 Bipolar disorder, unspecified (principal); A41.50 Gram-negative sepsis, unspecified; J96.90 Respiratory failure, unspecified, unspecified whether with hypoxia or hypercapnia; F19.20 Other psychoactive substance dependence, uncomplicated; F11.20 Opioid dependence, uncomplicated; N39.0 Urinary tract infection, site not specified; L03.211 Cellulitis of face; T50.901A Poisoning by unspecified drugs, medicaments and biological substances, accidental (unintentional), initial encounter; F41.9 Anxiety disorder, unspecified; F90.9 Attention-deficit hyperactivity disorder, unspecified type; B96.20 Unspecified Escherichia coli [E. coli] as the cause of diseases classified elsewhere; Z83.3 Family history of diabetes mellitus; Z82.49 Family history of ischemic heart disease and other diseases of the circulatory system; Z79.899 Other long term (current) drug therapy; Z87.891 Personal history of nicotine dependence

== ENCOUNTER 2017-01-20 17:09 | Emergency (ER) | payer MEDICAID ==
[2017-01-20 17:12] VITALS: BMI 27.5
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
[2017-01-20 17:56] LABS: BASO # 0.02 K/mm3 (0.0-2.0); BASO % 0.2 % (0.0-3.0); EOS # 0.1 (0.0-0.7); EOS % 0.9 % (1.5-5.0); GRAN # 5.71 (1.4-6.5); GRAN % 67.8 % (50.0-68.0); HEMATOCRIT 45.7 % (42.0-52.0); LYMPH % 23.6 % (22.0-35.0); MEAN CELL VOLUME 89.6 fl (80.0-105.0); MEAN CORPUSCULAR HEMOGLOBIN 31.8 pg (25.0-35.0); MEAN CORPUSCULAR HGB CONC 35.4 g/dl (31.0-37.0); MEAN PLATELET VOLUME 8.9 fl (7.0-11.0); MONO # 0.6 (0.1-0.6); MONO % 7.5 % (1.0-6.0); RED CELL DISTRIBUTION WIDTH 12.9 % (11.5-14.5); WHITE BLOOD COUNT 8.4 10^3/ul (4.5-11.0)
[2017-01-20 18:20] LABS: TROPONIN I < 0.01 ng/mL
[2017-01-20 18:28] LABS: PH,URINE 6.5 (4.7-8.0); URINE BILIRUBIN NEGATIVE (NEGATIVE); URINE BLOOD NEGATIVE (NEGATIVE); URINE GLUCOSE (UA) NEGATIVE (NEGATIVE); URINE KETONE NEGATIVE (NEGATIVE); URINE LEUKOCYTE ESTERASE NEGATIVE Leu/uL (NEGATIVE); URINE PROTEIN NEGATIVE mg/dL (<30 mg/dL); URINE UROBILINOGEN 0.2 E.U./dL (<1 E.U./dL)
[2017-01-20 18:30] LABS: ALB/GLOB RATIO 1.3 (1.1-1.8); ALKALINE PHOSPHATASE 72 U/L (38-126); ALT/SGPT 85 U/L (7-56); AST/SGOT 38 U/L (17-59); BILIRUBIN,TOTAL 0.5 mg/dL (0.2-1.3); BLOOD UREA NITROGEN 23 mg/dL (7-21); CALCIUM 9.6 mg/dL (8.4-10.5); CARBON DIOXIDE 30 mmol/L (21-33); CHLORIDE 100 mmol/L (98-107); GFR AFRICAN-AMERICAN > 60; GLUCOSE,RANDOM 97 mg/dL (70-110); MAGNESIUM 1.9 mg/dL (1.7-2.2); PHOSPHOROUS 3.9 mg/dL (2.5-4.5); POTASSIUM 4.3 mmol/L (3.6-5.0); SODIUM 141 mmol/L (132-148); TOTAL PROTEIN 7.9 g/dL (5.8-8.3)
[2017-01-20 18:31] LABS: URINE APPEARANCE CLEAR (CLEAR); URINE COLOR STRAW (YELLOW)
[2017-01-20 19:41] VITALS: BP 135/85; PULSE 85; RESP 15; O2SAT 100
[2017-01-20 20:03] VITALS: TEMP 98.3
--- NOTE | 2017-01-21 08:04 | RAD ---
HISTORY: psych COMPARISON: 01/08/2017 FINDINGS: LUNGS: No active pulmonary disease. PLEURA: No significant pleural effusion identified, no pneumothorax apparent. CARDIOVASCULAR: Normal. OSSEOUS STRUCTURES: No significant abnormalities. VISUALIZED UPPER ABDOMEN: Normal. OTHER FINDINGS: None. IMPRESSION: No active disease.
--- NOTE | 2017-01-21 19:10 | CARD ---
APPROVED REPORT EKG Measurement Heart [id number] <Conclusion> Sinus tachycardia Otherwise normal ECG
== END 2017-01-20 20:03 | disposition home or self-care (01) ==
LOC: ED 17:09
DX: F41.9 Anxiety disorder, unspecified (principal); F19.20 Other psychoactive substance dependence, uncomplicated; F11.20 Opioid dependence, uncomplicated; Z87.891 Personal history of nicotine dependence